=== PATIENT | male | born 1960 | race Caucasian/White ===

== ENCOUNTER → 2016-04-05 | Outpatient (REF) | payer OTHER ==
[~2016-04-05] MED LIST: /ONDA4TA OR; /TAMS4CA OR; ALLO300T OR; LIPI20TA OR; METF500T4 OR; VICO5TAB OR
== END | disposition home or self-care (01) ==
LOC: M SFHCLERA 16:21
PROVIDERS: ATTEND Family Medicine
DX: D04.62 Carcinoma in situ of skin of left upper limb, including shoulder (principal)

== ENCOUNTER → 2016-04-24 | Outpatient (CLI) | payer OTHER ==
[~2016-04-24] VITALS: Ht 182.9 cm; Wt 117.9 kg
[~2016-04-24] MED LIST changes: +ALLO10TA PO; +ASPI1TAB24 PO; +CLAR10CA3 PO; +GLYB5TA PO; +LIDOCAINE 2% INJ 100 MG/5 ML SDV (FOR ANES.) As Ordered ONE; +LISI-542 PO; +METF1000 PO; +NS 1,000 ML IV SCH; +PROPOFOL 200 MG/20 ML VIAL As Ordered ONE; +RANI1TAB6 PO; +TRAZ50TA4 PO
--- NOTE | 2016-04-24 13:15 | ROOR ---
Patient Name: Massimo Ibanez Procedure Date: 04/24/2016 12:54 PM Date of : 1960 Age: 56 Room: [facility] Gender: Male Note Status: Finalized Procedure: Upper GI endoscopy Indications: Suspected gastroparesis, Nausea with vomiting Providers: Meir CURTIS MD Referring MD: SENA BONILLA MD Requesting Provider: Medicines: Monitored Anesthesia Care Complications: No immediate complications. Procedure: Pre-Anesthesia Assessment: - The heart rate, respiratory rate, oxygen saturations, blood pressure, adequacy of pulmonary ventilation, and response to care were monitored throughout the procedure. The Endoscope was introduced through the mouth, and advanced to the second part of duodenum. The upper GI endoscopy was accomplished without difficulty. The patient tolerated the procedure well. Findings: The examined esophagus was normal. The entire examined stomach was normal. A single diminutive sessile polyp was found in the second portion of the duodenum. This was biopsied with a cold forceps for histology. Impression: - Normal esophagus. - Normal stomach. - Normal duodenum except a single tiny duodenal polyp. Biopsied. Recommendation: - Continue present medications. - Telephone endoscopist for pathology results in 2 weeks. Meir Curtis MD Meir CURTIS MD 04/24/2016 1:14:42 PM This report has been signed electronically. Number of Addenda: 0 Note Initiated On: 04/24/2016 12:54 PM Estimated Blood Loss: Estimated blood loss: none.
--- NOTE | 2016-04-24 13:32 | ROOR ---
Patient Name: Massimo Ibanez Procedure Date: 04/24/2016 12:55 PM Date of : 1960 Age: 56 Room: [facility] Gender: Male Note Status: Finalized Procedure: Colonoscopy Indications: Clinically significant diarrhea of unexplained origin, Change in bowel habits Providers: Meir CURTIS MD Referring MD: SENA BONILLA MD Requesting Provider: Medicines: Monitored Anesthesia Care Complications: No immediate complications. Procedure: Pre-Anesthesia Assessment: - The heart rate, respiratory rate, oxygen saturations, blood pressure, adequacy of pulmonary ventilation, and response to care were monitored throughout the procedure. The Colonoscope was introduced through the anus and advanced to the cecum, identified by appendiceal orifice and ileocecal valve. The colonoscopy was performed without difficulty. The patient tolerated the procedure well. The quality of the bowel preparation was good. Findings: The perianal and digital rectal examinations were normal. A diminutive polyp was found in the rectum. The polyp was sessile. The polyp was removed with a jumbo cold forceps. Resection and retrieval were complete. Internal hemorrhoids were found during retroflexion. The hemorrhoids were medium-sized. The exam was otherwise normal throughout the examined colon. Biopsies for histology were taken with a cold forceps for evaluation of microscopic colitis. (Exam: Complete, Prep: Good or Excellent.) Impression: - One diminutive polyp in the rectum, removed with a jumbo cold forceps. Resected and retrieved. - Internal hemorrhoids. - The colon examination was otherwise normal. - Biopsies were taken with a cold forceps for evaluation of microscopic colitis. Recommendation: - Telephone endoscopist for pathology results in 2 weeks. - If the pathology report reveals adenomatous tissue, then repeat the colonoscopy for surveillance in 5 years. Meir Curtis MD Meir CURTIS MD 04/24/2016 1:32:20 PM This report has been signed electronically. Number of Addenda: 0 Note Initiated On: 04/24/2016 12:55 PM Estimated Blood Loss: Estimated blood loss: none.
[2016-04-24 14:05] VITALS: BP 139/91
== END ==
LOC: M OPP 10:44
PROVIDERS: ATTEND Internal Medicine Gastroenterology
DX: R19.7 Diarrhea, unspecified (principal); R19.4 Change in bowel habit; K62.1 Rectal polyp; K64.8 Other hemorrhoids; R11.2 Nausea with vomiting, unspecified; K31.7 Polyp of stomach and duodenum; E11.9 Type 2 diabetes mellitus without complications; N42.9 Disorder of prostate, unspecified; Z85.828 Personal history of other malignant neoplasm of skin; Z79.82 Long term (current) use of aspirin; Z79.84 Long term (current) use of oral hypoglycemic drugs; Z79.899 Other long term (current) drug therapy; Z88.8 Allergy status to other drugs, medicaments and biological substances

== ENCOUNTER 2016-05-05 20:15 | Emergency (ER) | payer OTHER ==
[~2016-05-05] VITALS: Ht 185.4 cm; Wt 115.7 kg
[~2016-05-05 20:15] MED LIST changes: -LIDOCAINE 2% INJ 100 MG/5 ML SDV (FOR ANES.) As Ordered ONE; -NS 1,000 ML IV SCH; -PROPOFOL 200 MG/20 ML VIAL As Ordered ONE
[2016-05-05] MEDS ORDERED: TYLE325T5 PO (20:27)
[2016-05-05] MEDS ORDERED: METOCLOPRAMIDE INJ 10MG/2ML VIAL (J2765) IV ONE (21:15)
[2016-05-05] MEDS ORDERED: MORPHINE 4 MG/ML 1ML SYRINGE IV ONE (21:15)
[2016-05-05 21:26] LABS: BASO % 0.4 % (0.0-1.0); EOS # 0.1 K/mm3 (0.0-0.50); EOS % 0.9 % (0.0-3.0); LARGE UNSTAINED CELL # 0.1 K/mm3 (0.0-0.4); MEAN CORPUSCULAR HEMOGLOBIN 31.3 pg (27.0-33.0); MEAN CORPUSCULAR HGB CONC 34.5 g/dl (32.0-36.5); MEAN CORPUSCULAR VOLUME 90.8 fl (80.0-96.0); MONO # 0.5 K/mm3 (0.0-0.8); MONO % 6.1 % (0.0-5.0); NEUTROPHILS # 6.3 K/mm3 (1.8-7.7); NEUTROPHILS % 79.5 % (36.0-66.0); PLATELET COUNT, AUTOMATED 187 k/mm3 (150-450); RED CELL DISTRIBUTION WIDTH 14.1 % (11.5-14.5); WHITE BLOOD COUNT 7.9 K/mm3 (4.0-10.0)
[2016-05-05 21:53] LABS: ALBUMIN 3.8 GM/DL (3.2-5.2); ALBUMIN/GLOBULIN RATIO 1.19 (1.00-1.93); BILIRUBIN,DIRECT 0.1 MG/DL (0.0-0.2); BILIRUBIN,TOTAL 0.5 MG/DL (0.2-1.0); CALCIUM LEVEL 8.3 MG/DL (8.5-10.1); CREATININE FOR GFR 1.4 MG/DL (0.70-1.30); POTASSIUM SERUM 3.7 MEQ/L (3.5-5.1)
--- NOTE | 2016-05-05 23:00 | REPUSA ---
CLINICAL HISTORY: Right sided pain, stone Vs appy. TECHNIQUE: Multiple axial CT images were obtained through the abdomen and pelvis without administrat ion of oral or IV contrast material. COMMENTS: The liver enlarged, there is hypoattenuation compatible with fatty infiltration. There is no intra o r extrahepatic biliary ductal dilatation. Spleen is enlarged measuring 17 cm. The gallbladder is wi thin normal limits. The pancreas is of normal contour and attenuation characteristics. There is no evidence of adrenal mass. The kidneys are normal in size, shape and configuration. There is evidence of mild hydroureteronephr osis to the point of UVJ where there is a 3 mm calculus noted. There is additional punctate non obst ructing calculus noted in midpole of the right kidney. There are no calculi noted in the left kidney . There is no evidence for appendicitis. There is no bowel wall thickening. No evidence for small or l arge bowel obstruction. There is no evidence of abdominal ascites or lymphadenopathy. There is no evidence of intrinsic or extrinsic bladder mass. There is no pelvic ascites or lymphaden opathy. Prostate gland is mildly enlarged. Images of the lung bases show no evidence of pleural or parenchymal mass. There are no pleural effus ions. The bony structures are free of lytic or blastic lesions. Multilevel degenerative changes are seen i nvolving the thoracolumbar spine. Scattered calcifications are seen involving the aorta and major branches compatible with atherosclero sis. IMPRESSION: 1. 3 mm right UVJ calculus producing mild hydroureteronephrosis. 2. Fatty liver. 3. Splenomegaly. Thank you for your kind referral of this patient. We appreciate the opportunity to participate in th is patient's care.
[2016-05-05] MEDS ORDERED: PERC5TAB6 PO (23:26)
[2016-05-05] MEDS ORDERED: CIPR500T89 PO (23:26)
[2016-05-05] MEDS ORDERED: REGL10TA6 PO (23:26)
[2016-05-05] MEDS ORDERED: MOTR200T44 PO (23:26)
[2016-05-05] MEDS ORDERED: FLOM5CAP PO (23:26)
[2016-05-05] MEDS ORDERED: TAMSULOSIN 0.4 MG CAP PO ONE (23:30)
[2016-05-05] MEDS ORDERED: OXYCODONE/APAP 5MG/325MG(BULK) 1 TAB TAB PO ONE (23:30)
[2016-05-05 23:49] VITALS: BP 128/76
--- NOTE | 2016-05-07 21:24 | ED PDOC ---
Post-Departure Follow-Up ct abd/p faxed to dr carreno for fu Panchito Triana MD May 07, 2016 21:24
== END 2016-05-06 00:03 | disposition home or self-care (01) ==
LOC: M ED 20:56
DX: N20.0 Calculus of kidney (principal)
CPT/HCPCS: 74176; 80048; 80076; 81001; 82150; 83690; 85025; 96374; 96375; 99283; J2765

== ENCOUNTER → 2016-06-08 | Outpatient (REF) | payer OTHER ==
[~2016-06-08] MED LIST changes: +CIPR500T89 PO; +FLOM5CAP PO; +MOTR200T44 PO; +PERC5TAB6 PO; +REGL10TA6 PO; +TYLE325T5 PO
[2016-06-08 11:35] LABS: BASO % 0.5 % (0.0-1.0); EOS # 0.1 K/mm3 (0.0-0.50); EOS % 1.7 % (0.0-3.0); LARGE UNSTAINED CELL # 0.1 K/mm3 (0.0-0.4); LARGE UNSTAINED CELL % 1.1 % (0.0-4.0); LYMPH # 1.3 K/mm3 (1.5-4.5); LYMPH % 18.2 % (24.0-44.0); MEAN CORPUSCULAR HEMOGLOBIN 30.4 pg (27.0-33.0); MEAN CORPUSCULAR HGB CONC 33.8 g/dl (32.0-36.5); MONO # 0.5 K/mm3 (0.0-0.8); MONO % 7.1 % (0.0-5.0); NEUTROPHILS # 4.8 K/mm3 (1.8-7.7); NEUTROPHILS % 71.5 % (36.0-66.0); PLATELET COUNT, AUTOMATED 171 k/mm3 (150-450); RED CELL DISTRIBUTION WIDTH 13.7 % (11.5-14.5); WHITE BLOOD COUNT 6.8 K/mm3 (4.0-10.0)
[2016-06-08 11:38] LABS: ALBUMIN 3.7 GM/DL (3.2-5.2); ALBUMIN/GLOBULIN RATIO 1.32 (1.00-1.93); ALKALINE PHOSPHATASE 81 U/L (45-117); ALT/SGPT 50 U/L (12-78); ANION GAP 7 MEQ/L (8-16); AST/SGOT 27 U/L (15-37); BILIRUBIN,TOTAL 0.4 MG/DL (0.2-1.0); BLOOD UREA NITROGEN 18 MG/DL (7-18); CALCIUM LEVEL 8.7 MG/DL (8.5-10.1); CARBON DIOXIDE LEVEL 29 MEQ/L (21-32); CHLORIDE LEVEL 107 MEQ/L (98-107); CHOLESTEROL LEVEL 207 MG/DL (<200); CREATININE FOR GFR 1.29 MG/DL (0.70-1.30); GLOMERULAR FILTRATION RATE > 60.0 (>56); GLUCOSE, FASTING 144 MG/DL (70-105); POTASSIUM SERUM 4.5 MEQ/L (3.5-5.1); SODIUM LEVEL 143 MEQ/L (136-145); TOTAL PROTEIN 6.5 GM/DL (6.4-8.2); TRIGLYCERIDES LEVEL 283 MG/DL (<150)
== END ==
LOC: M SFHCLERA 08:02
PROVIDERS: ATTEND Family Medicine
DX: E11.9 Type 2 diabetes mellitus without complications (principal); N40.0 Benign prostatic hyperplasia without lower urinary tract symptoms
CPT/HCPCS: 80053; 80061; 83036; 85025; G0103

== ENCOUNTER → 2016-07-27 | Outpatient (CLI) | payer OTHER ==
--- NOTE | 2016-08-01 18:13 | SLEEPCENT ---
DATE OF PROCEDURE: 07/27/2016 REFERRING PHYSICIAN: Aileen Romo Nocturnal polysomnography was performed for the titration of pressure therapy in this patient with obstructive sleep apnea syndrome, apnea-hypopnea index 17.7. For testing, the patient was fit with a [employer] Simplus full face mask of medium size. 5 cm of water pressure were applied to the circuit and the lights were extinguished. 8 hours of data were reviewed. There were 432 minutes of sleep identified. Sleep latency was short at 8.5 minutes. Rapid eye movement (REM) sleep was mildly delayed at 136 minutes. Sleep architecture was good with three REM periods appreciated. Overall sleep efficiency was 91%. EKG showed a sinus rhythm with an average heart rate of 72 beats per minute. EEG showed normal waveforms for awake and sleep. Best pressure for palliation of respiratory events was found to be 10 cm of water with which the patient slept through REM without respiratory event or oxygen desaturation. There was little limb activity and remaining measures of sleep physiology were normal. IMPRESSION: Obstructive sleep apnea syndrome (G47.33). RECOMMENDATION: Nightly use of pressure therapy 10 cm of water.
== END ==
LOC: M SLEEP 20:05
PROVIDERS: ATTEND Nurse Practitioner Adult Health
DX: G47.33 Obstructive sleep apnea (adult) (pediatric) (principal)

== ENCOUNTER → 2016-10-17 | Outpatient (REF) | payer OTHER ==
[~2016-10-17] MED LIST changes: +ASPI-161 PO; -ASPI1TAB24 PO; +CIPR-249 PO; -CIPR500T89 PO; -METF1000 PO; +METF10004 PO; +PERC5TAB12 PO; -PERC5TAB6 PO; +TRAZ50TA11 PO; -TRAZ50TA4 PO
== END ==
LOC: M SFHCLERA 08:05
PROVIDERS: ATTEND Family Medicine
DX: Z53.8 Procedure and treatment not carried out for other reasons (principal); E11.9 Type 2 diabetes mellitus without complications; E78.5 Hyperlipidemia, unspecified; E66.9 Obesity, unspecified; M10.9 Gout, unspecified

== ENCOUNTER → 2017-06-05 | Outpatient (CLI) | payer OTHER | LOC: M LRY 18:40 | DX: M19.011 Primary osteoarthritis, right shoulder (principal) | CPT/HCPCS: 73030 ==

== ENCOUNTER → 2017-06-08 | Outpatient (REF) | payer OTHER ==
[2017-06-08 18:39] LABS: BASO % 0.5 % (0.0-1.0); EOS # 0.1 10^3/uL (0.0-0.50); EOS % 2.2 % (0.0-3.0); HEMATOCRIT 38.2 % (42.0-52.0); HEMOGLOBIN 13.1 g/dl (13.5-17.5); IMMATURE GRANULOCYTE % 1.2 % (0-3.0); LYMPH # 1.1 10^3/uL (1.5-4.5); LYMPH % 16.8 % (24.0-44.0); MEAN CORPUSCULAR HEMOGLOBIN 30.3 pg (27.0-33.0); MEAN CORPUSCULAR HGB CONC 34.3 g/dl (32.0-36.5); MEAN CORPUSCULAR VOLUME 88.2 fl (80.0-96.0); MONO # 0.5 10^3/uL (0.0-0.8); MONO % 7.1 % (0.0-5.0); NEUTROPHILS # 4.7 10^3/uL (1.8-7.7); NEUTROPHILS % 72.2 % (36.0-66.0); PLATELET COUNT, AUTOMATED 166 10^3/uL (150-450); RED BLOOD COUNT 4.33 10^6/uL (4.30-6.10); RED CELL DISTRIBUTION WIDTH 13.5 % (11.5-14.5); WHITE BLOOD COUNT 6.5 10^3/uL (4.0-10.0)
[2017-06-08 18:59] LABS: ESTIMATED AVERAGE GLUCOSE 197 MG/DL (60-110); HEMOGLOBIN A1c 8.5 %
[2017-06-08 19:02] LABS: ALBUMIN 3.7 GM/DL (3.2-5.2); ALBUMIN/GLOBULIN RATIO 1.32 (1.00-1.93); ALKALINE PHOSPHATASE 107 U/L (45-117); ALT/SGPT 41 U/L (12-78); ANION GAP 9 MEQ/L (8-16); AST/SGOT 28 U/L (7-37); BILIRUBIN,TOTAL 0.6 MG/DL (0.2-1.0); BLOOD UREA NITROGEN 11 MG/DL (7-18); CARBON DIOXIDE LEVEL 27 MEQ/L (21-32); CHLORIDE LEVEL 108 MEQ/L (98-107); CHOLESTEROL LEVEL 151 MG/DL (<200); CHOLESTEROL RISK RATIO 4.081 (<5); CREATININE FOR GFR 1.14 MG/DL (0.70-1.30); GLOMERULAR FILTRATION RATE > 60.0 (>56); GLUCOSE, FASTING 197 MG/DL (70-100); HDL CHOLESTEROL 37 MG/DL (>40); NON-HDL-C 114 MG/DL; PSA SCREENING 0.91 NG/ML (< 4.0); SODIUM LEVEL 144 MEQ/L (136-145); THYROID STIMULATING HORMONE 0.803 uIU/ML (0.358-3.740); TOTAL PROTEIN 6.5 GM/DL (6.4-8.2); TRIGLYCERIDES LEVEL 185 MG/DL (<150); URIC ACID 5.3 MG/DL (3.5-7.2)
[2017-06-08 19:09] LABS: MALB URINE SIEMENS 41.7 MG/L; MAU/CREAT RATIO 24.1 MCG/MG (0.0-30.0)
== END ==
LOC: M SFHCLERA 10:17
DX: E11.9 Type 2 diabetes mellitus without complications (principal); Z12.5 Encounter for screening for malignant neoplasm of prostate; N20.9 Urinary calculus, unspecified

== ENCOUNTER → 2017-08-01 | Outpatient (REF) | payer OTHER ==
[2017-08-01 16:51] LABS: ANION GAP 8 MEQ/L (8-16); BASO % 0.5 % (0.0-1.0); BLOOD UREA NITROGEN 14 MG/DL (7-18); CALCIUM LEVEL 9.2 MG/DL (8.5-10.1); CARBON DIOXIDE LEVEL 28 MEQ/L (21-32); CHLORIDE LEVEL 104 MEQ/L (98-107); CREATININE FOR GFR 1.32 MG/DL (0.70-1.30); EOS # 0.1 10^3/uL (0.0-0.50); EOS % 1.7 % (0.0-3.0); GLOMERULAR FILTRATION RATE 59.7 (>56); GLUCOSE, FASTING 247 MG/DL (70-100); HEMATOCRIT 41.5 % (42.0-52.0); HEMOGLOBIN 13.8 g/dl (13.5-17.5); IMMATURE GRANULOCYTE % 1.1 % (0-3.0); LYMPH # 1.5 10^3/uL (1.5-4.5); LYMPH % 18.8 % (24.0-44.0); MEAN CORPUSCULAR HGB CONC 33.3 g/dl (32.0-36.5); MEAN CORPUSCULAR VOLUME 90.2 fl (80.0-96.0); MONO # 0.7 10^3/uL (0.0-0.8); MONO % 8.6 % (0.0-5.0); NEUTROPHILS # 5.7 10^3/uL (1.8-7.7); NEUTROPHILS % 69.3 % (36.0-66.0); PLATELET COUNT, AUTOMATED 187 10^3/uL (150-450); POTASSIUM SERUM 4.4 MEQ/L (3.5-5.1); RED CELL DISTRIBUTION WIDTH 13.6 % (11.5-14.5); SODIUM LEVEL 140 MEQ/L (136-145); WHITE BLOOD COUNT 8.2 10^3/uL (4.0-10.0)
[2017-08-01 16:57] LABS: ESTIMATED AVERAGE GLUCOSE 189 MG/DL (60-110); HEMOGLOBIN A1c 8.2 %
== END ==
LOC: M SFHCLERA 10:49
DX: Z01.818 Encounter for other preprocedural examination (principal); E11.9 Type 2 diabetes mellitus without complications

== ENCOUNTER → 2017-09-04 | Outpatient (CLI) | payer OTHER ==
[2017-09-04 11:32] LABS: ANION GAP 10 MEQ/L (8-16); BLOOD UREA NITROGEN 17 MG/DL (7-18); CALCIUM LEVEL 9.1 MG/DL (8.5-10.1); CARBON DIOXIDE LEVEL 27 MEQ/L (21-32); CHLORIDE LEVEL 105 MEQ/L (98-107); CREATININE FOR GFR 1.31 MG/DL (0.70-1.30); GLOMERULAR FILTRATION RATE > 60.0 (>56); GLUCOSE, FASTING 205 MG/DL (70-100); POTASSIUM SERUM 4.3 MEQ/L (3.5-5.1); SODIUM LEVEL 142 MEQ/L (136-145)
== END ==
LOC: M LAB 10:46
DX: E10.9 Type 1 diabetes mellitus without complications (principal)

== ENCOUNTER 2018-03-07 17:16 | Emergency (ER) | payer OTHER ==
[~2018-03-07] VITALS: Ht 182.9 cm; Wt 115.9 kg
[2018-03-07 17:16] VITALS: BP 169/83
[~2018-03-07 17:16] MED LIST changes: +FLOM0.4C39 PO; -FLOM5CAP PO; +TRAZ-160 PO; -TRAZ50TA11 PO
[2018-03-07] MEDS ORDERED: NS 1,000 ML IV ONE (18:00)
[2018-03-07] MEDS ORDERED: ONDANSETRON 4MG/2ML VIAL (J2405) IV ONE (18:00)
[2018-03-07] MEDS: MORPHINE 4 MG/ML 1ML VIAL/SYRINGE (J2270) IV PRN ×2 (18:17→20:11)
[2018-03-07 18:23] LABS: BASO # 0.1 10^3/uL (0.0-0.2); BASO % 0.4 % (0.0-1.0); EOS # 0.1 10^3/uL (0.0-0.50); EOS % 0.7 % (0.0-3.0); HEMATOCRIT 43.6 % (42.0-52.0); HEMOGLOBIN 14.9 g/dl (13.5-17.5); LYMPH # 1.3 10^3/uL (1.5-4.5); LYMPH % 8.2 % (24.0-44.0); MEAN CORPUSCULAR HEMOGLOBIN 30.1 pg (27.0-33.0); MEAN CORPUSCULAR HGB CONC 34.2 g/dl (32.0-36.5); MEAN CORPUSCULAR VOLUME 88.1 fl (80.0-96.0); MONO # 1.4 10^3/uL (0.0-0.8); MONO % 8.8 % (0.0-5.0); NEUTROPHILS % 81.2 % (36.0-66.0); PLATELET COUNT, AUTOMATED 220 10^3/uL (150-450); RED BLOOD COUNT 4.95 10^6/uL (4.30-6.10)
--- NOTE | 2018-03-07 18:54 | REPVR ---
EXAM: US Abdomen Limited, Right Upper Quadrant EXAM DATE/TIME: 03/07/2018 6:12 PM CLINICAL HISTORY: 58 years old, male; Pain; Abdominal pain; Acute; Additional info: Ruq pain TECHNIQUE: Real-time ultrasound of the abdomen with image documentation. Examination was focused on the right upper quadrant. COMPARISON: No relevant prior studies available. FINDINGS: Liver: The liver is generally increased in echo texture. Focal area of relative decreased echotexture noted within the liver parenchyma adjacent to the gallbladder. This represents normal liver parenchyma on a background of a fatty infiltration. There is attenuation of sound as it passes through the liver. Gallbladder: A small amount of sludge is seen in the gallbladder. No gallstones. There is no gallbladder wall thickening. Common bile duct: The common bile duct measures 6 mm. Pancreas: Visualized pancreas is unremarkable. Right kidney: The right kidney measures 10.2 x 4.7 x 5.3 cm. IMPRESSION: 1. Gallbladder sludge 2. Hepatic steatosis Electronically signed by: Jovita Olmedo On 03/07/2018 18:54:25 PM
[2018-03-07 19:01] LABS: ALBUMIN 3.6 GM/DL (3.2-5.2); ALT/SGPT 26 U/L (12-78); BILIRUBIN,DIRECT 0.2 MG/DL (0.0-0.2); BILIRUBIN,TOTAL 0.7 MG/DL (0.2-1.0); BLOOD UREA NITROGEN 17 MG/DL (7-18); CALCIUM LEVEL 8.8 MG/DL (8.5-10.1); CARBON DIOXIDE LEVEL 26 MEQ/L (21-32); CHLORIDE LEVEL 102 MEQ/L (98-107); CREATININE FOR GFR 1.28 MG/DL (0.70-1.30); GLOMERULAR FILTRATION RATE > 60.0 (>56); GLUCOSE, FASTING 180 MG/DL (70-100); LIPASE 151 U/L (73-393); POTASSIUM SERUM 3.7 MEQ/L (3.5-5.1); SODIUM LEVEL 139 MEQ/L (136-145); TOTAL PROTEIN 7.5 GM/DL (6.4-8.2)
[2018-03-07] MEDS ORDERED: ISOVUE-370 76% 100ML VIAL (Q9967) As Ordered ONE (19:16)
--- NOTE | 2018-03-07 19:49 | REPVR ---
EXAM: CT Abdomen and Pelvis With Contrast EXAM DATE/TIME: 03/07/2018 7:20 PM CLINICAL HISTORY: 58 years old, male; Pain; Abdominal pain; Localized; Right upper quadrant (ruq); Additional info: Ruq pain TECHNIQUE: Axial computed tomography images of the abdomen and pelvis with intravenous contrast. All CT scans at this facility use at least one of these dose optimization techniques: automated exposure control; mA and/or kV adjustment per patient size (includes targeted exams where dose is matched to clinical indication); or iterative reconstruction. Coronal and sagittal reformatted images were created and reviewed. CONTRAST: 100 ml of isovue 370 administered intravenously. COMPARISON: CT ABD PELVIS W/O CONTRAST 05/05/2016 10:02 PM FINDINGS: Lower thorax: No acute findings. ABDOMEN: Liver: The liver measures 26 cm in craniocaudal span. The liver is low in density. Gallbladder and bile ducts: Mild inflammatory changes noted within the fat surrounding the inferior aspect of the gallbladder. Pancreas: Normal. No ductal dilation. Spleen: Normal. No splenomegaly. Adrenals: Normal. No mass. Kidneys and ureters: Normal. No hydronephrosis. Stomach and bowel: Normal. No obstruction. No mucosal thickening. Appendix: No evidence of appendicitis. PELVIS: Bladder: Unremarkable as visualized. Reproductive: The prostate measures 4.1 x 5.3 by approximately 4 cm. ABDOMEN and PELVIS: Intraperitoneal space: Normal. No free air. No significant fluid collection. Bones/joints: No acute fracture. No dislocation. Soft tissues: Unremarkable. Vasculature: Normal. No abdominal aortic aneurysm. Lymph nodes: Normal. No enlarged lymph nodes. IMPRESSION: 1. Mild inflammatory changes surrounding the gallbladder suggests the possibility of acute cholecystitis. An ultrasound done before the CT examination demonstrated the presence of sludge in the gallbladder. 2. Hepatic steatosis. Electronically signed by: Jovita Olmedo On 03/07/2018 19:48:52 PM
[2018-03-07] MEDS ORDERED: AUGMENTIN 875 MG TAB PO ONE (20:30)
[2018-03-07] MEDS ORDERED: NORCO 5/325MG TABLET (BULK FOR ED) PO ONE (20:30)
[2018-03-07] MEDS ORDERED: NORCOTAB PO (20:32)
[2018-03-07] MEDS ORDERED: AUGM875T28 PO (20:32)
[2018-03-08] MEDS ORDERED: METF500T13 PO (22:37)
[2018-03-08] MEDS ORDERED: TRAZO50TA PO (22:37)
[2018-03-08] MEDS ORDERED: IBUPOTC PO (22:37)
[2018-03-08] MEDS ORDERED: AUGM875T28 PO (22:37)
[2018-03-08] MEDS ORDERED: METF850T4 PO (22:37)
[2018-03-08] MEDS ORDERED: SITA50TAB PO (22:37)
[2018-03-08] MEDS ORDERED: NORC1TAB4 PO (22:37)
== END 2018-03-07 20:52 | disposition home or self-care (01) ==
LOC: M ED 17:16
DX: K81.0 Acute cholecystitis (principal); E11.9 Type 2 diabetes mellitus without complications; K21.9 Gastro-esophageal reflux disease without esophagitis; Z79.899 Other long term (current) drug therapy; Z79.84 Long term (current) use of oral hypoglycemic drugs; Z79.82 Long term (current) use of aspirin; Z88.8 Allergy status to other drugs, medicaments and biological substances
CPT/HCPCS: 74177; 76705; 80048; 80076; 81001; 83690; 85025; 96361; 96374; 96375; 96376; 99284; J2270; J2405; Q9967

== ENCOUNTER 2018-03-08 21:31 | Inpatient (IN) | payer OTHER ==
[~2018-03-08] VITALS: Ht 182.9 cm; Wt 119.5 kg
[~2018-03-08 21:31] MED LIST changes: +AUGM875T28 PO; +NORCOTAB PO
[2018-03-08] MEDS ORDERED: METOCLOPRAMIDE INJ 10MG/2ML VIAL (J2765) IV ONE (22:00)
[2018-03-08] MEDS ORDERED: MORPHINE 4 MG/ML 1ML VIAL/SYRINGE (J2270) IV ONE (22:00)
[2018-03-08] MEDS ORDERED: NS 1,000 ML IV ONE (22:00)
[2018-03-08 22:16] LABS: BASO # 0.1 10^3/uL (0.0-0.2); BASO % 0.2 % (0.0-1.0); HEMATOCRIT 42.8 % (42.0-52.0); HEMOGLOBIN 14.6 g/dl (13.5-17.5); LYMPH # 0.8 10^3/uL (1.5-4.5); LYMPH % 3.8 % (24.0-44.0); MEAN CORPUSCULAR HEMOGLOBIN 30.5 pg (27.0-33.0); MEAN CORPUSCULAR HGB CONC 34.1 g/dl (32.0-36.5); MEAN CORPUSCULAR VOLUME 89.5 fl (80.0-96.0); MONO % 11.2 % (0.0-5.0); NEUTROPHILS # 17.5 10^3/uL (1.8-7.7); NEUTROPHILS % 83.9 % (36.0-66.0); PLATELET COUNT, AUTOMATED 191 10^3/uL (150-450); RED BLOOD COUNT 4.78 10^6/uL (4.30-6.10); WHITE BLOOD COUNT 20.9 10^3/uL (4.0-10.0)
[2018-03-08 22:37] LABS: MONO # 2.3 10^3/uL (0.0-0.8)
[2018-03-08] MEDS ORDERED: METF850T4 PO (22:37)
[2018-03-08] MEDS ORDERED: NORC1TAB4 PO (22:37)
[2018-03-08] MEDS ORDERED: SITA50TAB PO (22:37)
[2018-03-08] MEDS ORDERED: IBUPOTC PO (22:37)
[2018-03-08] MEDS ORDERED: AUGM875T28 PO (22:37)
[2018-03-08] MEDS ORDERED: TRAZO50TA PO (22:37)
[2018-03-08] MEDS ORDERED: METF500T13 PO (22:37)
[2018-03-08 22:41] LABS: ALBUMIN 3.1 GM/DL (3.2-5.2); BILIRUBIN,DIRECT 0.7 MG/DL (0.0-0.2); BILIRUBIN,TOTAL 1.8 MG/DL (0.2-1.0); CREATININE FOR GFR 1.49 MG/DL (0.70-1.30); GLOMERULAR FILTRATION RATE 51.8 (>56); POTASSIUM SERUM 4.1 MEQ/L (3.5-5.1); TOTAL PROTEIN 6.4 GM/DL (6.4-8.2)
[2018-03-09] MEDS ORDERED: ONDANSETRON 4MG/2ML VIAL (J2405) IV PRN (00:15)
[2018-03-09] MEDS ORDERED: MORPHINE 2 MG/ML 1ML SYRINGE (J2270) IV PRN (00:15)
[2018-03-09 00:23] VITALS: BP 143/87
[2018-03-09] MEDS: PIPERACILLIN/TAZOBACTAM SOD 3.375 GM in D5W MINI-BAG PLUS 50 ML IV SCH ×4 (01:08→18:02)
[2018-03-09] MEDS: MORPHINE 4 MG/ML 1ML VIAL/SYRINGE (J2270) IV PRN ×3 (01:08→08:13)
[2018-03-09] MEDS: LR 1,000 ML IV SCH ×4 (01:20→22:29)
[2018-03-09 06:00] VITALS: BP 133/62
[2018-03-09] MEDS ORDERED: KETOROLAC 30 MG/ML VIAL (J1885) IV PRN (09:00)
[2018-03-09] MEDS ORDERED: GLUCOSE 4 GM CHEW TABLET PO PRN (09:00)
[2018-03-09] MEDS ORDERED: traZODone 50 MG TAB PO PRN (09:00)
[2018-03-09] MEDS ORDERED: ACETAMINOPHEN TAB 650MG DOSE (2X325MG) PO PRN (09:00)
[2018-03-09] MEDS ORDERED: DEXTROSE 50% 50 ML SYRINGE IV PRN (09:00)
[2018-03-09] MEDS ORDERED: GLUCAGON FOR INJ 1 MG VIAL (J1610) SC PRN (09:00)
[2018-03-09 09:56] LABS: ALBUMIN 2.7 GM/DL (3.2-5.2); BILIRUBIN,DIRECT 0.5 MG/DL (0.0-0.2); BILIRUBIN,TOTAL 1.1 MG/DL (0.2-1.0); CALCIUM LEVEL 7.7 MG/DL (8.5-10.1); CREATININE FOR GFR 1.49 MG/DL (0.70-1.30); GLOMERULAR FILTRATION RATE 51.8 (>56); HEMATOCRIT 37.1 % (42.0-52.0); MEAN CORPUSCULAR HEMOGLOBIN 29.8 pg (27.0-33.0); MEAN CORPUSCULAR HGB CONC 33.4 g/dl (32.0-36.5); MEAN CORPUSCULAR VOLUME 89.2 fl (80.0-96.0); PLATELET COUNT, AUTOMATED 156 10^3/uL (150-450); POTASSIUM SERUM 3.5 MEQ/L (3.5-5.1); RED BLOOD COUNT 4.16 10^6/uL (4.30-6.10); TOTAL PROTEIN 5.6 GM/DL (6.4-8.2); WHITE BLOOD COUNT 15.7 10^3/uL (4.0-10.0)
[2018-03-09 09:57] LABS: HEMOGLOBIN 12.4 g/dl (13.5-17.5)
[2018-03-09] MEDS: LISINOPRIL 5 MG TAB PO SCH (10:21)
[2018-03-09] MEDS: NORCO, ANEXSIA 5/325MG TABLET (HYDROcodone/ACETAMINOPHEN) PO PRN ×3 (10:21→20:21)
[2018-03-09] MEDS: ALLOPURINOL 100 MG TAB PO SCH (10:21)
[2018-03-09] MEDS: SENOKOT S TAB PO SCH ×2 (10:21→20:20)
[2018-03-09] MEDS: SITagliptin 50 MG TAB (JANUVIA) PO SCH (10:21)
[2018-03-09] MEDS: HumaLOG INSULIN (NovoLOG) PER UNIT SC SCH ×2 (12:00→18:00)
[2018-03-09] MEDS: metFORMIN 850 MG TAB PO SCH (13:18)
[2018-03-09] MEDS: ENOXAPARIN 40 MG/0.4 ML SYRINGE (J1650) SC SCH (13:18)
[2018-03-09 14:00] VITALS: BP 112/61
[2018-03-09] MEDS ORDERED: metFORMIN (GLUCOPHAGE) 500 MG TAB PO SCH (18:00)
[2018-03-09 22:00] VITALS: BP 142/65
[2018-03-10] MEDS: PIPERACILLIN/TAZOBACTAM SOD 3.375 GM in D5W MINI-BAG PLUS 50 ML IV SCH ×2 (00:53→05:23)
[2018-03-10] MEDS: HumaLOG INSULIN (NovoLOG) PER UNIT SC SCH ×2 (01:05→06:34)
[2018-03-10] MEDS: NORCO, ANEXSIA 5/325MG TABLET (HYDROcodone/ACETAMINOPHEN) PO PRN ×2 (05:27→10:48)
[2018-03-10 05:53] LABS: HEMATOCRIT 38.2 % (42.0-52.0); HEMOGLOBIN 12.6 g/dl (13.5-17.5); MEAN CORPUSCULAR HEMOGLOBIN 30.2 pg (27.0-33.0); MEAN CORPUSCULAR VOLUME 91.6 fl (80.0-96.0); PLATELET COUNT, AUTOMATED 166 10^3/uL (150-450); RED BLOOD COUNT 4.17 10^6/uL (4.30-6.10); WHITE BLOOD COUNT 12.7 10^3/uL (4.0-10.0)
[2018-03-10 06:00] VITALS: BP 138/84
[2018-03-10 06:24] LABS: ALBUMIN 2.4 GM/DL (3.2-5.2); ALT/SGPT 19 U/L (12-78); BLOOD UREA NITROGEN 14 MG/DL (7-18); CALCIUM LEVEL 8.1 MG/DL (8.5-10.1); CARBON DIOXIDE LEVEL 24 MEQ/L (21-32); CHLORIDE LEVEL 103 MEQ/L (98-107); CREATININE FOR GFR 1.28 MG/DL (0.70-1.30); GLOMERULAR FILTRATION RATE > 60.0 (>56); GLUCOSE, FASTING 114 MG/DL (70-100); POTASSIUM SERUM 3.6 MEQ/L (3.5-5.1); SODIUM LEVEL 136 MEQ/L (136-145); TOTAL PROTEIN 6.4 GM/DL (6.4-8.2)
[2018-03-10] MEDS: LR 1,000 ML IV SCH (08:15)
[2018-03-10 08:53] VITALS: BP 127/79
[2018-03-10] MEDS: ENOXAPARIN 40 MG/0.4 ML SYRINGE (J1650) SC SCH (08:53)
[2018-03-10] MEDS: metFORMIN 850 MG TAB PO SCH (08:53)
[2018-03-10] MEDS: SITagliptin 50 MG TAB (JANUVIA) PO SCH (08:53)
[2018-03-10] MEDS: LISINOPRIL 5 MG TAB PO SCH (08:53)
[2018-03-10] MEDS: SENOKOT S TAB PO SCH (08:53)
[2018-03-10] MEDS: ALLOPURINOL 100 MG TAB PO SCH (08:53)
--- NOTE | 2018-03-10 12:48 | HPE ---
DATE OF ADMISSION: 03/08/2018 CHIEF COMPLAINT: Abdominal pain. HISTORY OF PRESENT ILLNESS The patient is a 58-year-old male with a history of acute cholecystitis. He was discharged from the emergency room on Saturday night and returned Saturday with increasing pain. His symptoms started on Saturday. He came home from work early, stayed home from work on Saturday, went back to work on , but his pain in the right upper quadrant kept any progressively worse, a little bit of nausea and vomiting with it. No other problems with fevers, diarrhea or constipation. No prior history of cholelithiasis or abdominal pains. In the ER on Saturday he was diagnosed with acute cholecystitis with a slightly elevated white count, liver enzymes were normal so he was discharged home with p.o. antibiotics. However, his pain got progressively worse after going home so he came back in last night. White count was elevated on this admission as well as his bilirubins, so he was admitted overnight. This morning he feels much improved. He has been on the IV antibiotics for about two doses now. Repeated labs this morning, which do show improvement of both his white count and his bilirubins. We will continue to monitor him for another 24 hours to make sure he continues to improve, and if so, will plan on discharge home tomorrow morning. PAST MEDICAL HISTORY: Kidney stones. Diabetes. PAST SURGICAL HISTORY: Right shoulder surgery. Left knee surgery. Lithotripsy for kidney stones. Vasectomy. Umbilical hernia repair. Tonsillectomy. ALLERGIES: 1. DICYCLOMINE. MEDICATIONS: Please see med rec. SOCIAL HISTORY: Denies drug, alcohol, tobacco abuse. FAMILY HISTORY: Noncontributory. REVIEW OF SYSTEMS: Pertinent positives and negatives as stated in the history of present illness. PHYSICAL EXAMINATION GENERAL: Alert and oriented times three. No acute stress. VITALS: Temperature 99, pulse 88, respirations 17, blood pressure 133/62, pulse ox 94% room air. HEENT: Pupils equally round and reactive to light and accommodation. HEART: S1-S2 regular rate and rhythm. LUNGS: Clear to auscultation bilaterally. ABDOMEN: Soft. Tender to palpation right upper quadrant. Localized guarding, no rigidity. No signs of peritonitis. EXTREMITIES: No clubbing, cyanosis or edema. LABORATORY DATA: White count 20.9 down to 15.7, hemoglobin 12.4, platelets 156, sodium 139, creatinine 1.49, total bilirubin 1.8 down to 1.1, direct bilirubin 0.7 down to 0.5, AST, ALT and alkaline phosphatase are within normal range. ASSESSMENT/PLAN: Patient is a 58-year-old male with known history of acute cholecystitis failing outpatient therapy. Recommendation was to keep him in house and monitor him with supportive care and see if he improves. Hyperbilirubinemia could be secondary to acute cholecystitis versus choledocholithiasis. We will continue to trend his enzymes however, at this point they are improving and so choledocholithiasis is unlikely. He was started on clear liquid diet today, keep him on the antibiotics, and monitor him overnight, and as long as he is improving tomorrow will plan on discharge home tomorrow morning.
--- NOTE | 2018-03-11 04:20 | DSES ---
DATE OF ADMISSION: 03/08/2018 DATE OF DISCHARGE: 03/10/2018 ADMISSION DIAGNOSIS: Acute cholecystitis. DISCHARGE DIAGNOSIS: Acute cholecystitis. HOSPITAL COURSE: The patient is a 58-year-old male who presented on the with right upper quadrant abdominal pain that has been going on for a few days. He came into the hospital on Saturday and was discharged home with antibiotics orally however he continued to have increasing pain so he came back in on Saturday. On Saturday the pain was worse. His white count had increased up to 20 and his bilirubins were also elevated. We admitted him to observe for signs of choledocholithiasis versus cholangitis. After having less than 6 hours of IV fluids antibiotics his pain subsided and he was improving. Repeat laboratories about 9 hours later showed improvement in all of his liver enzymes and leukocytosis. Started him on a clear liquid diet yesterday. This morning his pain is continuing to improve. White count is down now to 12.7 from 20.9 on admission. His bilirubins are back to normal 1.8 on admission down to 1.0 now. His pain is still present in the right upper quadrant only but much improved. He is tolerating clear liquid diets without any problems. PLAN: Discharge home today on a liquid diet until his pain is completely subsided. Will also continue with by mouth antibiotics that he was already given from the emergency room (ER) on Saturday. Once his pain is improved he can go back to a low-fat, low-calorie diet and then he will follow up with me in the office within the next week to schedule outpatient surgery. All of his questions were answered. He has pain meds and antibiotics already at home.
== END 2018-03-10 11:30 | disposition home or self-care (01) | DRG 446 ==
LOC: M ED 21:31 → M ED INP 22:50 → M MSPAV 03-09 00:24
PROVIDERS: ADMIT Surgery; ATTEND Surgery
DX: K81.0 Acute cholecystitis (principal); E11.9 Type 2 diabetes mellitus without complications; Z87.442 Personal history of urinary calculi; Z88.8 Allergy status to other drugs, medicaments and biological substances; Z79.84 Long term (current) use of oral hypoglycemic drugs; Z79.82 Long term (current) use of aspirin; Z79.899 Other long term (current) drug therapy

== ENCOUNTER → 2018-03-20 | Outpatient (REF) | payer OTHER ==
[~2018-03-20] MED LIST changes: +IBUPOTC PO; +METF500T13 PO; +METF850T4 PO; +NORC1TAB4 PO; +SITA50TAB PO; +TRAZO50TA PO
[2018-03-20 11:17] LABS: BASO # 0.1 10^3/uL (0.0-0.2); BASO % 0.8 % (0.0-1.0); EOS # 0.1 10^3/uL (0.0-0.50); EOS % 1.4 % (0.0-3.0); HEMATOCRIT 41.2 % (42.0-52.0); HEMOGLOBIN 13.1 g/dl (13.5-17.5); LYMPH # 1.2 10^3/uL (1.5-4.5); LYMPH % 13.2 % (24.0-44.0); MEAN CORPUSCULAR HEMOGLOBIN 29.5 pg (27.0-33.0); MEAN CORPUSCULAR HGB CONC 31.8 g/dl (32.0-36.5); MEAN CORPUSCULAR VOLUME 92.8 fl (80.0-96.0); MONO # 0.7 10^3/uL (0.0-0.8); MONO % 8.2 % (0.0-5.0); NEUTROPHILS # 6.7 10^3/uL (1.8-7.7); PLATELET COUNT, AUTOMATED 302 10^3/uL (150-450); RED BLOOD COUNT 4.44 10^6/uL (4.30-6.10)
[2018-03-20 11:29] LABS: ALBUMIN 3.3 GM/DL (3.2-5.2); ALT/SGPT 31 U/L (12-78); BILIRUBIN,TOTAL 0.4 MG/DL (0.2-1.0); BLOOD UREA NITROGEN 13 MG/DL (7-18); CALCIUM LEVEL 8.3 MG/DL (8.5-10.1); CARBON DIOXIDE LEVEL 28 MEQ/L (21-32); CHLORIDE LEVEL 108 MEQ/L (98-107); CHOLESTEROL LEVEL 145 MG/DL (<200); CHOLESTEROL RISK RATIO 4.264 (<5); CREATININE FOR GFR 1.12 MG/DL (0.70-1.30); GLOMERULAR FILTRATION RATE > 60.0 (>56); GLUCOSE, FASTING 127 MG/DL (70-100); HDL CHOLESTEROL 34 MG/DL (>40); LDL CHOLESTEROL 91 MG/DL (<100); NON-HDL-C 111 MG/DL; POTASSIUM SERUM 4.4 MEQ/L (3.5-5.1); SODIUM LEVEL 142 MEQ/L (136-145); TOTAL PROTEIN 6.3 GM/DL (6.4-8.2); TRIGLYCERIDES LEVEL 101 MG/DL (<150)
[2018-03-20 11:49] LABS: HEMOGLOBIN A1c 7.5 %
[2018-03-20 12:05] LABS: MALB URINE SIEMENS 41.5 MG/L; MAU/CREAT RATIO 18.2 MCG/MG (0.0-30.0)
== END ==
LOC: M SFHCLERA 08:47
PROVIDERS: ATTEND Family Medicine
DX: E11.9 Type 2 diabetes mellitus without complications (principal)

== ENCOUNTER → 2018-04-02 | Outpatient (CLI) | payer OTHER ==
[~2018-04-02] MED LIST changes: +ASPI81TAEC PO; +ATOR40TA75 PO; +DICL1GEL3 TOP; +HYDR-4571 PO
--- NOTE | 2018-04-02 15:39 | ECGEPIP ---
Stationary ECG Study [facility] Test Date: 2018-04-02 Pat Name: SOLEDAD MORALES Department: Room: - Gender: M Boat Mechanic: : 1960 Requested By: Ruy Ross Order Number: [id number] Reading MD: Yolis Hammonds Measurements Intervals [place] Rate: 73 P: 27 ME: 165 QRS: -8 QRSD: 113 T: 28 QT: 375 QTc: 414 Interpretive Statements SINUS RHYTHM MODERATE INTRAVENTRICULAR CONDUCTION DELAY STABLE C/W 09/04/14 Electronically Signed On 04-02-2018 15:39:20 EST by Yolis Hammonds
== END ==
LOC: M EKG 12:08
PROVIDERS: ATTEND Anesthesiology
DX: Z01.818 Encounter for other preprocedural examination (principal); I45.9 Conduction disorder, unspecified

== ENCOUNTER 2018-04-07 09:20 | Day surgery (SDC) | payer OTHER ==
[~2018-04-07] VITALS: Ht 182.9 cm; Wt 110.6 kg
[~2018-04-07 09:20] MED LIST changes: -ASPI81TAEC PO; -DICL1GEL3 TOP; -HYDR-4571 PO; +LIDOCAINE 1% MDV 20ML VIAL SQ PRN; +LIDOCAINE 2% INJ 100 MG/5 ML SDV (FOR ANES.) As Ordered ONE; +LR 1,000 ML IV ONE; +MIDAZOLAM INJ 2 MG/2 ML VIAL (J2250) As Ordered ONE; +ONDANSETRON 4MG/2ML VIAL (J2405) As Ordered ONE; +PROPOFOL 200 MG/20 ML VIAL As Ordered ONE; +ROCURONIUM BROMIDE 50 MG/5 ML VIAL As Ordered ONE; +dexameTHASONE 4 MG/ML 1ML VIAL (J1100) As Ordered ONE; +fentaNYL 100 MCG/2 ML INJECTION (J3010) As Ordered ONE
[2018-04-07] MEDS ORDERED: BUPIVACAINE/EPIN 0.25% 30 ML VIAL As Ordered ONE (09:42)
[2018-04-07] MEDS ORDERED: PHENYLephrine HCL 500 MCG/5 ML (100MCG/ML) SYRINGE (J2370) As Ordered ONE (10:40)
[2018-04-07] MEDS ORDERED: ePHEDrine SULFATE 25 MG/5 ML(5MG/ML) SYRINGE As Ordered ONE (10:40)
[2018-04-07] MEDS ORDERED: SUGAMMADEX SODIUM 500 MG/5 ML VIAL (BRIDION) As Ordered ONE (10:43)
[2018-04-07] MEDS ORDERED: KETOROLAC 60 MG/2 ML VIAL (J1885) As Ordered ONE (10:44)
[2018-04-07] MEDS ORDERED: fentaNYL 100 MCG/2 ML INJECTION (J3010) As Ordered ONE (10:52)
[2018-04-07] MEDS ORDERED: fentaNYL 100 MCG/2 ML INJECTION (J3010) IV PRN (12:00)
[2018-04-07] MEDS ORDERED: HYDROMORPHONE HCL 0.5 MG/ 0.5 ML SYRINGE (J1170 PER 1) IV PRN (12:00)
[2018-04-07] MEDS ORDERED: NORCO, ANEXSIA 5/325MG TABLET (HYDROcodone/ACETAMINOPHEN) PO PRN (12:00)
[2018-04-07] MEDS ORDERED: PERCOCET 5MG/325MG TAB PO PRN (12:00)
[2018-04-07 13:45] VITALS: BP 154/88
--- NOTE | 2018-04-08 17:07 | RO ---
DATE OF PROCEDURE: 04/07/2018 PREOPERATIVE DIAGNOSIS: Acute cholecystitis. POSTOPERATIVE DIAGNOSIS: Acute cholecystitis. PROCEDURE: Laparoscopic cholecystectomy. SURGEON: Dr. Seferino Jensen TUMBLER TENDER: Dr. Humphrey, who assisted with retraction and visualization of the gallbladder. ANESTHESIA: General. ESTIMATED BLOOD LOSS: 5 mL. COMPLICATIONS: None. INDICATIONS FOR PROCEDURE: The patient is a 58-year-old male who presents in the hospital with acute cholecystitis. He was discharged home with antibiotics for a couple of weeks and is now here for elective cholecystectomy. The risks and benefits of the procedure not limited to but including bleeding, infection, hernia formation, damage to surrounding structures, and need for further surgery were discussed in detail with the patient. Informed consent was obtained and procedure was planned. DESCRIPTION OF PROCEDURE: The patient was brought back to operating room two after sufficient sedation. The abdomen was sterilely prepped and draped. Next, a time-out was done to confirm proper patient, proper procedure. Following that, a 5 mm incision made in left upper quadrant, Veress needle was inserted and the abdomen was insufflated to 15 mmHg. Next, the Veress needle was removed. A 5 mm Optiview port was used to gain access to the abdomen and left upper quadrant. The abdomen was examined and site of a previous umbilical hernia repair is well intact. No signs of any mesh. A 5 mm supraumbilical incision was then made and another 5 mm port was placed there. 11 mm port placed subxiphoid, two 5 mm ports in the right upper quadrant. The fundus of the gallbladder was grasped, elevated up towards the right shoulder. Multiple peritoneal and omental adhesions to the gallbladder that were all easily taken down with blunt dissection. Once that was completed, the cystic duct and cystic artery were carefully dissected free using a combination of blunt and sharp dissection. Once they were both clearly identified, they were both doubly clipped and cut. Due to the large size, once it was cut, it was also ligated with a PDS Endoloop. The gallbladder was then removed from the gallbladder fossa using electrocautery. Hemostasis was controlled using electrocautery once the gallbladder was removed. Once that was completed, right upper quadrant was irrigated. The gallbladder was then removed from the abdomen using a 10 mm EndoCatch bag through the subxiphoid port site. Once the gallbladder was removed, the right upper quadrant was examined one last time to confirm hemostasis. The abdomen was then desufflated. Skin incisions were closed with #4-0 Vicryl subcuticular sutures. The abdomen was cleaned and dried. Steri-Strips, 4x4 and tape were applied thus ending procedure.
== END 2018-04-07 14:02 | disposition home or self-care (01) ==
LOC: M SDC 09:20
PROVIDERS: ATTEND Surgery
DX: K81.2 Acute cholecystitis with chronic cholecystitis (principal); E11.9 Type 2 diabetes mellitus without complications; E78.5 Hyperlipidemia, unspecified; G47.30 Sleep apnea, unspecified; Z79.82 Long term (current) use of aspirin; Z79.84 Long term (current) use of oral hypoglycemic drugs; Z79.899 Other long term (current) drug therapy
CPT/HCPCS: 47562; 88304; J1100; J1885; J2250; J2370; J2405; J3010

== ENCOUNTER 2018-04-09 19:45 | Inpatient (IN) | payer OTHER ==
[~2018-04-09] VITALS: Ht 182.9 cm; Wt 112.4 kg
[~2018-04-09 19:45] MED LIST changes: -LIDOCAINE 1% MDV 20ML VIAL SQ PRN; -LIDOCAINE 2% INJ 100 MG/5 ML SDV (FOR ANES.) As Ordered ONE; -LR 1,000 ML IV ONE; -MIDAZOLAM INJ 2 MG/2 ML VIAL (J2250) As Ordered ONE; -ONDANSETRON 4MG/2ML VIAL (J2405) As Ordered ONE; -PROPOFOL 200 MG/20 ML VIAL As Ordered ONE; -ROCURONIUM BROMIDE 50 MG/5 ML VIAL As Ordered ONE; -dexameTHASONE 4 MG/ML 1ML VIAL (J1100) As Ordered ONE; -fentaNYL 100 MCG/2 ML INJECTION (J3010) As Ordered ONE
[2018-04-09] MEDS ORDERED: HYDR-4571 PO (20:16)
[2018-04-09 20:40] LABS: BASO % 0.2 % (0.0-1.0); EOS % 0.1 % (0.0-3.0); HEMATOCRIT 36.9 % (42.0-52.0); HEMOGLOBIN 12.4 g/dl (13.5-17.5); LYMPH # 0.3 10^3/uL (1.5-4.5); LYMPH % 1.9 % (24.0-44.0); MEAN CORPUSCULAR HEMOGLOBIN 29.5 pg (27.0-33.0); MEAN CORPUSCULAR HGB CONC 33.6 g/dl (32.0-36.5); MEAN CORPUSCULAR VOLUME 87.9 fl (80.0-96.0); MONO # 0.8 10^3/uL (0.0-0.8); MONO % 4.7 % (0.0-5.0); NEUTROPHILS # 15.9 10^3/uL (1.8-7.7); NEUTROPHILS % 92.2 % (36.0-66.0); PLATELET COUNT, AUTOMATED 187 10^3/uL (150-450); WHITE BLOOD COUNT 17.2 10^3/uL (4.0-10.0)
[2018-04-09 21:06] LABS: BLOOD UREA NITROGEN 35 MG/DL (7-18); CALCIUM LEVEL 8.2 MG/DL (8.5-10.1); CARBON DIOXIDE LEVEL 27 MEQ/L (21-32); CHLORIDE LEVEL 99 MEQ/L (98-107); CK-MB VALUE MASS < 1.0 NG/ML (<3.6); CPK CREATINE PHOSPHOKINASE 63 U/L (39-308); GLOMERULAR FILTRATION RATE 31.4 (>56); GLUCOSE, FASTING 324 MG/DL (70-100); MB/CK RELATIVE INDEX 1.59 (< OR =4); POTASSIUM SERUM 3.9 MEQ/L (3.5-5.1); SODIUM LEVEL 135 MEQ/L (136-145); TROPONIN I < 0.02 NG/ML (< 0.10)
[2018-04-09] MEDS ORDERED: ONDANSETRON 4MG/2ML VIAL (J2405) IV ONE (21:15)
[2018-04-09] MEDS ORDERED: NS 1,000 ML IV ONE ×2 (21:15→22:15)
[2018-04-09] MEDS ORDERED: MORPHINE 4 MG/ML 1ML VIAL/SYRINGE (J2270) IV ONE ×2 (21:15→23:15)
[2018-04-09 21:44] LABS: ALBUMIN 2.8 GM/DL (3.2-5.2); ALT/SGPT 36 U/L (12-78); BILIRUBIN,DIRECT 0.8 MG/DL (0.0-0.2); BILIRUBIN,TOTAL 1.4 MG/DL (0.2-1.0); LIPASE 62 U/L (73-393); TOTAL PROTEIN 6.1 GM/DL (6.4-8.2)
[2018-04-09] MEDS ORDERED: PIPERACILLIN/TAZOBACTAM SOD 3.375 GM in D5W MINI-BAG PLUS 50 ML IV ONE (22:00)
--- NOTE | 2018-04-09 23:02 | REPVR ---
EXAM: CT Abdomen and Pelvis Without Contrast EXAM DATE/TIME: 04/09/2018 10:32 PM CLINICAL HISTORY: 58 years old, male; Pain; Abdominal pain; Generalized; Prior surgery; Surgery date: Post-operative (0-2 days); Additional info: 2 days post op lap tyrone with abd pain TECHNIQUE: Axial computed tomography images of the abdomen and pelvis without contrast. All CT scans at this facility use at least one of these dose optimization techniques: automated exposure control; mA and/or kV adjustment per patient size (includes targeted exams where dose is matched to clinical indication); or iterative reconstruction. Coronal and sagittal reformatted images were created and reviewed. COMPARISON: CT ABD/PEL W/IV CONTRAST ONLY 03/07/2018 7:14 PM FINDINGS: Lower thorax: Mild bibasilar interstitial prominence and fibro-atelectatic change. There is moderate atelectasis or consolidation right lower lobe. Minimal right pleural effusion. ABDOMEN: Liver: The liver at mid clavicular line measures 12.5 cm. There is a Jayshree's lobe. There is fluid in Bustos's pouch and fluid around the tip of the liver with suggestion of some loculation. Gallbladder and bile ducts: Right subdiaphragmatic fluid and air and gas and fluid the gallbladder fossa measuring 4.5 cm in diameter. Status post cholecystectomy. Pancreas: Normal. No ductal dilation. Spleen: The spleen measures 11.1 cm. Adrenals: Normal. No mass. Kidneys and ureters: Normal. No hydronephrosis. Stomach and bowel: Normal. No obstruction. No mucosal thickening. Appendix: A normal appendix is seen. PELVIS: Bladder: Unremarkable as visualized. Reproductive: Unremarkable as visualized. ABDOMEN and PELVIS: Intraperitoneal space: Trace fluid in the pelvis. Bones/joints: Degenerative changes of the lumbar spine including left posterolateral osteophytes L4-5 and mild secondary neural foraminal stenosis. Soft tissues: Subcutaneous gas is noted midline epigastrium which may reflect a surgical site. Vasculature: Normal. No abdominal aortic aneurysm. Lymph nodes: Normal. No enlarged lymph nodes. IMPRESSION: 1. Interval cholecystectomy with findings consistent with recent surgery since 03/07/2018. 2. Gas and fluid are noted around the liver and extend from the subdiaphragmatic region to around the hepatic tip. There is suggestion of loculation without extension of significant fluid into the pelvis although trace fluid is present. The amount of fluid and gas is somewhat greater than expected although may be postsurgical. Bile leak or infection are not excluded. 3. Mild bibasilar interstitial prominence and fibro-atelectatic change with minimal right pleural effusion and moderate right lower lobe atelectasis or consolidation. Electronically signed by: Levar Davies On 04/09/2018 23:02:21 PM
[2018-04-09] MEDS ORDERED: METOCLOPRAMIDE INJ 10MG/2ML VIAL (J2765) IV PRN (23:30)
[2018-04-09] MEDS ORDERED: ONDANSETRON 4MG/2ML VIAL (J2405) IV PRN (23:30)
[2018-04-09] MEDS ORDERED: ASPI81TAEC PO (23:49)
[2018-04-09] MEDS ORDERED: DICL1GEL3 TOP (23:52)
[2018-04-10] MEDS: LR 1,000 ML IV SCH ×3 (00:03→16:45)
[2018-04-10 01:10] VITALS: BP 125/70
[2018-04-10] MEDS: HumaLOG INSULIN (NovoLOG) PER UNIT SC SCH ×4 (01:22→18:00)
[2018-04-10] MEDS: MORPHINE 4 MG/ML 1ML VIAL/SYRINGE (J2270) IV PRN ×3 (01:24→13:47)
--- NOTE | 2018-04-10 02:00 | REP ---
Clinical: Chest and abdominal pain with recent laparoscopic surgery. Technique: Upright view of the chest with supine and upright views of the abdomen and pelvis. Findings: Bowel gas pattern suggests small bowel obstruction with dilated air filled loops of small bowel including multiple air-fluid levels. Differential diagnosis may include ileus. No free air identified. Lung bases demonstrate bibasilar atelectasis and small pleural effusions. Impression: Findings suggest small bowel obstruction and require close clinical observation. Bibasilar atelectasis and small pleural effusions. Electronically Signed by Julio Duckworth MD 04/10/2018 01:51 A
--- NOTE | 2018-04-10 02:01 | REP ---
Clinical: Chest pain. Technique: Lateral view of the chest (frontal view of the chest in the abdominal series) Findings: Bibasilar opacities suggest atelectasis/consolidation and small pleural effusions (right greater than left). Impression: Bibasilar opacities suggesting atelectasis/infiltrate and small pleural effusions (right greater than left). Electronically Signed by Julio Duckworth MD 04/10/2018 01:52 A
--- NOTE | 2018-04-10 03:35 | HPE ---
DATE OF ADMISSION: 04/09/2018 ADMITTING DIAGNOSIS: 1. Abdominal pain, probable postoperative bile leak. HISTORY OF PRESENT ILLNESS: The patient is a pleasant 58-year-old man who underwent a laparoscopic cholecystectomy on April 07. He had initially presented in February with acute cholecystitis. Apparently, he was initially tried on outpatient therapy but then presented with persistent pain and was admitted by Dr. Jensen. He was treated with antibiotics and then discharged to followup for elective scheduled cholecystectomy. He was treated as an ambulatory procedure on April 07. The operative report indicates that no problems were identified during the course of the procedure. The patient was discharged home on Saturday; and reported that Saturday evening, he noted some increase in his discomfort. He was using [place] every 6 hours, as well as some ibuprofen. By Saturday, he noted increased pain, particularly in the right upper quadrant. He did note some right shoulder pain. His appetite was poor. He reported increased pain with movement. Pain persisted and worsened and he presented to the emergency department at [facility] at 1945 on April 09. At the time of presentation, he was found to be tachycardiac with a pulse of 120. Laboratory studies showed a sharp increase in his creatinine to 2.3 with a BUN of 35. His blood sugars were elevated at 324 and his white count was elevated to 17,000 with 92% neutrophils. I was consulted and the patient is now admitted for further evaluation and treatment of what clinically would seem consistent with a postoperative bile leak. MEDICATIONS: The patient's usual medications include: - glyburide 5 mg tablets 2.5 mg twice a day - lisinopril 5 mg by mouth daily - aspirin 81 mg by mouth daily - ranitidine 150 mg by mouth twice daily as needed - allopurinol 100 mg by mouth daily - acetaminophen 650 mg by mouth every 6 hours as needed for pain - ibuprofen 600 mg every 6 hours as needed for pain - metformin hydrochloride 850 mg tablets every morning - metformin 500 mg by mouth daily at bedtime - sitagliptin 50 mg by mouth daily - trazodone 50 mg by mouth daily at bedtime - atorvastatin 40 mg by mouth daily - hydrocodone acetaminophen 5/325 tablets one every 6 hours as needed for pain. ALLERGIES: The patient's only reported drug allergies to DICYCLOMINE PAST SURGICAL HISTORY: The patient has had a tonsillectomy. He has had previous colonoscopy and upper endoscopy. He had an umbilical hernia repair. He has had a vasectomy. He has had left knee surgery and a right rotator cuff repair. MEDICAL HISTORY IS SIGNIFICANT FOR: Obstructive sleep apnea treated with C-PAP. He has a history of hypercholesterolemia. He has a history of some gastroesophageal reflux. He has had renal stone previously. He has a history of gout and arthritis. He has type 2 diabetes mellitus. SOCIAL HISTORY: The patient denies any tobacco use or significant alcohol intake. FAMILY HISTORY: Noncontributory. REVIEW OF SYSTEMS: Shows the patient denies any chest pain or palpitations. He has no cough or wheezing prior to this event. He has had no history of deep vein thrombosis (DVT) or pulmonary embolus. He denies any dysuria or hematuria. Denies any new bone or joint problems. He has had no loss of consciousness or seizure. He denies any history of hepatitis, pancreatitis or yellow jaundice. PHYSICAL EXAMINATION: The patient is a pleasant man appearing somewhat apprehensive and uncomfortable, lying quietly on the emergency department (ED) stretcher. His vitals at the time I saw him included a pulse of approximately 105, blood pressure of 92/50, respiratory rate of 20. He is alert and oriented. Skin is warm and dry. Sclerae are anicteric. The neck is without mass or bruit. Lungs are clear to auscultation bilaterally. The heart exam shows a regular rate and rhythm. The abdomen is mildly protuberant. He does have some bowel sounds present, particularly on the left side of the abdomen. He has five small incisions that are dressed with small bandages. He has some tympany to percussion in the epigastrium. He has marked tenderness to percussion and to palpation along the right lateral abdomen and flank. There is milder tenderness along the mid abdomen and he is relatively nontender in the left side of the abdomen. Extremities show no peripheral edema and he has palpable radial and dorsalis pedis pulses. His chemistries include a complete blood count (CBC) which shows a white count of 17.2 with a differential showing 92% neutrophils, 2% lymphocytes and 5% monocytes. Hemoglobin is 12 with hematocrit of 37 and platelet count is 187,000. Chemistry profile shows sodium of 135, potassium 2.9, chloride 99, CO2 of 27, BUN of 35, creatinine 2.3 and glucose of 324. Total bilirubin is 1.4 with a direct of 0.8. The other liver function tests are normal. A troponin is less than 0.02. Total protein is 6.1 with an albumin of 2.8. The lipase is 62. Imaging included a chest x-ray which showed some increased opacification of the right lung base which might be largely secondary to atelectasis. An acute abdominal series was obtained which showed some dilated loops of air-filled small bowel. A CT scan showed evidence of recent surgery. There is an air-fluid level in the gallbladder fossa with some fluid and air around the right lobe of the liver, both superiorly and inferiorly. There is some significant atelectasis in the right lower lobe of the lung. There may be a small effusion. IMPRESSION: 1. Probable postcholecystectomy bile leak now and two days postoperative from laparoscopic cholecystectomy 2. Diabetes mellitus type 2. 3. Obstructive sleep apnea. 4. Acute kidney injury. 5. Hypercholesterolemia. 6. Gastroesophageal reflux. 7. Gout. PLAN: The patient has received 2 liters of normal saline as a bolus in the emergency department. He was also given a dose of 3.375 grams of Zosyn. He will be admitted and kept nothing by mouth. He will remain on IV fluids with Ringer's lactate at 150 mL per hour for now. He will be managed with fingerstick blood sugars every 6 hours with sliding scale insulin coverage. We will avoid nonsteroidal anti-inflammatory medications for now. I have ordered a nuclear biliary scan for the morning to look for evidence of any bile leak. He will be continued on Zosyn 3.375 grams IV every 6 hours. He will be provided with analgesics as necessary with morphine or acetaminophen. The patient and his were counseled regarding my strong suspicion that he has a bile leak. He certainly has significant pain that could not be accounted for by a simple ileus from pain relievers. They had an opportunity to ask questions and I answered these to the best of my ability. I will contact Dr. Jensen in the morning to informed him of the patient's admission.
[2018-04-10 04:00] VITALS: BP 128/85
[2018-04-10] MEDS: ACETAMINOPHEN TAB 650MG DOSE (2X325MG) PO PRN ×2 (04:21→19:47)
[2018-04-10] MEDS: PIPERACILLIN/TAZOBACTAM SOD 3.375 GM in D5W MINI-BAG PLUS 50 ML IV SCH ×4 (04:22→22:43)
[2018-04-10 05:42] LABS: BASO % 0.2 % (0.0-1.0); EOS # 0.1 10^3/uL (0.0-0.50); EOS % 0.5 % (0.0-3.0); HEMATOCRIT 33.5 % (42.0-52.0); LYMPH # 0.3 10^3/uL (1.5-4.5); LYMPH % 2.4 % (24.0-44.0); MEAN CORPUSCULAR HEMOGLOBIN 29.6 pg (27.0-33.0); MEAN CORPUSCULAR HGB CONC 32.8 g/dl (32.0-36.5); MEAN CORPUSCULAR VOLUME 90.1 fl (80.0-96.0); MONO # 0.6 10^3/uL (0.0-0.8); MONO % 4.5 % (0.0-5.0); NEUTROPHILS # 12.3 10^3/uL (1.8-7.7); NEUTROPHILS % 90.1 % (36.0-66.0); PLATELET COUNT, AUTOMATED 150 10^3/uL (150-450); RED BLOOD COUNT 3.72 10^6/uL (4.30-6.10); WHITE BLOOD COUNT 13.6 10^3/uL (4.0-10.0)
[2018-04-10 06:13] LABS: ALBUMIN 2.3 GM/DL (3.2-5.2); BILIRUBIN,TOTAL 0.8 MG/DL (0.2-1.0); CREATININE FOR GFR 1.99 MG/DL (0.70-1.30); GLOMERULAR FILTRATION RATE 37.1 (>56); POTASSIUM SERUM 3.5 MEQ/L (3.5-5.1)
[2018-04-10 08:00] VITALS: BP 108/70
--- NOTE | 2018-04-10 08:14 | ECGEPIP ---
Stationary ECG Study [facility] - ED Test Date: 2018-04-09 Pat Name: SOLEDAD MORALES Department: Room: [place] [address] Gender: M Dupligraph Operator: gt : 1960 Requested By: EDELMIRA Bojorquez Order Number: [id number] Reading MD: Ky Argueta Measurements Intervals [place] Rate: 112 P: -3 MO: 137 QRS: -21 QRSD: 105 T: 3 QT: 336 QTc: 460 Interpretive Statements SINUS TACHYCARDIA POSSIBLE LEFT ATRIAL ENLARGEMENT MODERATE INTRAVENTRICULAR CONDUCTION DELAY RATE CHANGE COMPARED TO 04/02/18 Electronically Signed On 04-10-2018 8:14:23 EST by Ky Argueta
[2018-04-10] MEDS: PANTOPRAZOLE 40MG INJ (PROTONIX) (C9113) IV SCH (09:17)
[2018-04-10 11:30] VITALS: BP 101/59
--- NOTE | 2018-04-10 13:08 | IPNPDOC ---
Text Note Date of Service The patient was seen on 04/10/18. NOTE No acute events overnight. The abd pain is slightly improved. He is ambulating without any problems, and denies any nausea, or emesis. VSSAF NAD abd - soft, slight tenderness to palpation RUQ only, incisions c/d/i labs - below A) 58y/o male s/p lap tyrone on saturday with RUQ pains and leukocytosis. There is concern for possible RUQ abscess, vs. bile leak P) NPO HIDA ABX consult to IR for drain placement in the RUQ further results pending HIDA. Onur Jensen DO VS,Fishbone, I+O VS, Fishbone, I+O Laboratory Tests 04/09/18 20:32 Red Blood Count 4.20 L, Mean Corpuscular Volume 87.9, Mean Corpuscular Hemoglobin 29.5, Mean Corpuscular Hemoglobin Concent 33.6, Red Cell Distribution Width 14.0, Neutrophils (%) (Auto) 92.2 H, Lymphocytes (%) (Auto) 1.9 L, Monocytes (%) (Auto) 4.7, Eosinophils (%) (Auto) 0.1, Basophils (%) (Auto) 0.2, Neutrophils # (Auto) 15.9 H, Lymphocytes # (Auto) 0.3 L, Monocytes # (Auto) 0.8, Eosinophils # (Auto) 0.0, Basophils # (Auto) 0.0 04/10/18 05:18 Red Blood Count 3.72 L, Mean Corpuscular Volume 90.1, Mean Corpuscular Hemoglobin 29.6, Mean Corpuscular Hemoglobin Concent 32.8, Red Cell Distribution Width 13.9, Neutrophils (%) (Auto) 90.1 H, Lymphocytes (%) (Auto) 2.4 L, Monocytes (%) (Auto) 4.5, Eosinophils (%) (Auto) 0.5, Basophils (%) (Auto) 0.2, Neutrophils # (Auto) 12.3 H, Lymphocytes # (Auto) 0.3 L, Monocytes # (Auto) 0.6, Eosinophils # (Auto) 0.1, Basophils # (Auto) 0.0, Calcium Level 8.0 L, Aspartate Amino Transf (AST/SGOT) 21, Alanine Aminotransferase (ALT/SGPT) 29, Alkaline Phosphatase 89, Total Bilirubin 0.8, Total Protein 6.0 L, Albumin 2.3 L Vital Signs Date Time Temp Pulse Resp B/P (MAP) Pulse Ox O2 Delivery O2 Flow Rate FiO2 04/10/18 11:30 98.2 82 17 101/59 (73) 93 4.0 04/10/18 06:00 High Flow Cannula I&O- Last 24 Hours up to 6 AM 04/10/18 06:00 Intake Total 1050 ml Output Total 0 ml Balance 1050 ml JB JENSEN DO Apr 10, 2018 13:08
--- NOTE | 2018-04-10 14:01 | REP ---
BILIARY SCAN: 04/10/2018. COMPARISON: CT abdomen/pelvis, 04/09/2018. CLINICAL HISTORY: Abdominal pain post cholecystectomy 3 days ago. Evaluate for bile leak. Fluid and gas in the gallbladder fossa noted along with fluid surrounding the lower aspect right hepatic lobe. None into the pelvis. FINDINGS: Patient received 6.6 mCi technetium 99m mebrofenin via an IV. Sequential 5-minute images in anterior projection with a 60-minute lateral image also obtained. Tracer distribution is homogeneous and prompt. Activity is first seen in the duodenum at 10 minutes. With progressive washout of activity from the liver into the duodenum, there was activity seen into the jejunum with peristalsis by 40 minutes. Also at 40 minutes, there is activity adjacent to the far lateral aspect of the lateral segment of the left hepatic lobe. This precisely fits the gastric antrum and body of the stomach seen on CT in this same location. There was no abnormal activity around the inferior aspect of the right lobe of the liver were fluid was seen nor in the gallbladder fossa where air and fluid seen together. IMPRESSION: 1. Prompt appearance of activity in the duodenum at 10 minutes with progressive washout from the liver and the small bowel reached by 40 minutes. Activity adjacent to the lateral segment left lobe is well contained and is consistent with reflux from the duodenum into the distal stomach. There was no fluid in this region anatomically [address], and this is the same location where the body and antrum of the stomach are located on the CT adjacent to that left lobe. There is no evidence of extravasation or leak by these images. I cannot exclude the possibility of a prior bile leak that has sealed. Electronically Signed by Massimo Beckford MD 04/10/2018 07:30 P
[2018-04-10] MEDS ORDERED: LIDOCAINE 1% MDV 20ML VIAL As Ordered ONE (14:33)
[2018-04-10 16:00] VITALS: BP 121/66
--- NOTE | 2018-04-10 19:27 | REP ---
CT-GUIDED ABDOMINAL ABSCESS DRAIN The procedure was performed under the direct supervision of Dr. Beckford. Patient has a history of gas and fluid noted around the liver and extending from the subdiaphragmatic region to around the hepatic tip and in the gallbladder fossa. This is seen on a previous CT scan dated 04/09/2018. The risks and benefits of the procedure were explained to the patient and informed consent was obtained. The fluid in the gallbladder fossa was localized using CT guidance. The skin was prepped and draped in a sterile fashion. 1% lidocaine was used as a local anesthetic. Using CT guidance and Seldinger technique a 10 Sami Skater APDL catheter was inserted. 250 ml of brown colored fluid was withdrawn with a sample sent to the lab for analysis. Post drainage images demonstrate the fluid in the gallbladder fossa to Don. There is less fluid seen around the hepatic tip. The catheter was affixed to the skin and a sterile dressing was applied. The catheter was connected to a gravity drainage bag. The patient tolerated the procedure well and there were no immediate complications. After the appropriate amount of monitored convalescence the patient was discharged from the department. Reviewed by NATASHA Aly 04/10/2018 04:57 P Electronically Signed by Massimo Beckford MD 04/10/2018 07:19 P
[2018-04-10 20:00] VITALS: BP 118/68
[2018-04-11] VITALS: BP 114/68
[2018-04-11] MEDS: MORPHINE 4 MG/ML 1ML VIAL/SYRINGE (J2270) IV PRN ×5 (00:18→20:22)
[2018-04-11] MEDS: LR 1,000 ML IV SCH ×3 (02:03→20:31)
[2018-04-11 04:00] VITALS: BP 126/68
[2018-04-11] MEDS: PIPERACILLIN/TAZOBACTAM SOD 3.375 GM in D5W MINI-BAG PLUS 50 ML IV SCH ×4 (05:30→22:23)
[2018-04-11] MEDS: ACETAMINOPHEN TAB 650MG DOSE (2X325MG) PO PRN ×2 (05:31→17:25)
[2018-04-11] MEDS: HumaLOG INSULIN (NovoLOG) PER UNIT SC SCH ×4 (06:00→17:25)
[2018-04-11 07:38] LABS: HEMATOCRIT 31.6 % (42.0-52.0); HEMOGLOBIN 10.3 g/dl (13.5-17.5); MEAN CORPUSCULAR HEMOGLOBIN 29.5 pg (27.0-33.0); MEAN CORPUSCULAR HGB CONC 32.6 g/dl (32.0-36.5); MEAN CORPUSCULAR VOLUME 90.5 fl (80.0-96.0); PLATELET COUNT, AUTOMATED 144 10^3/uL (150-450); RED BLOOD COUNT 3.49 10^6/uL (4.30-6.10); WHITE BLOOD COUNT 13.3 10^3/uL (4.0-10.0)
--- NOTE | 2018-04-11 07:47 | IPNPDOC ---
Text Note Date of Service The patient was seen on 04/11/18. NOTE No acute events overnight. The abd pain is slightly improved. He is ambulating without any problems, and denies any nausea, or emesis. Drain in place in the RUQ with bile tinged clear fluid VSSAF NAD abd - soft, slight tenderness to palpation RUQ only, incisions c/d/i labs - below HIDA - no signs of bile leak A) 58y/o male s/p lap tyrone on saturday with RUQ pains and leukocytosis. RUQ fluid collection looks like old bile that spilled during surgery, vs. less likely small bile leak P) reg diet ABX monitor labs and RUQ drain likely d/c home in am if drain stays same color and will remove in office next week Onur Jensen DO VS,Fishbone, I+O VS, Fishbone, I+O Laboratory Tests 04/11/18 07:24 Red Blood Count 3.49 L, Mean Corpuscular Volume 90.5, Mean Corpuscular Hemoglobin 29.5, Mean Corpuscular Hemoglobin Concent 32.6, Red Cell Distribution Width 14.2 Vital Signs Date Time Temp Pulse Resp B/P (MAP) Pulse Ox O2 Delivery O2 Flow Rate FiO2 04/11/18 04:00 100.1 88 20 126/68 (87) 94 4.0 04/11/18 04:00 NIPPV (BIPAP/CPAP) I&O- Last 24 Hours up to 6 AM 04/11/18 06:00 Intake Total 4935 ml Output Total 2615 ml Balance 2320 ml JB JENSEN DO Apr 11, 2018 07:47
[2018-04-11 08:00] VITALS: BP 124/72
[2018-04-11] MEDS: PANTOPRAZOLE 40MG INJ (PROTONIX) (C9113) IV SCH (08:33)
[2018-04-11 12:00] VITALS: BP 150/60
[2018-04-11 16:00] VITALS: BP 130/60
[2018-04-11 20:00] VITALS: BP 138/83
[2018-04-12] VITALS (7 sets, daily range): BP systolic 125–162; BP diastolic 78–97
[2018-04-12] MEDS: MORPHINE 4 MG/ML 1ML VIAL/SYRINGE (J2270) IV PRN ×7 (00:23→23:47)
[2018-04-12] MEDS: LR 1,000 ML IV SCH ×5 (04:20→20:43)
[2018-04-12 05:11] LABS: HEMATOCRIT 34.1 % (42.0-52.0); HEMOGLOBIN 10.8 g/dl (13.5-17.5); MEAN CORPUSCULAR HEMOGLOBIN 28.6 pg (27.0-33.0); MEAN CORPUSCULAR HGB CONC 31.7 g/dl (32.0-36.5); MEAN CORPUSCULAR VOLUME 90.5 fl (80.0-96.0); PLATELET COUNT, AUTOMATED 165 10^3/uL (150-450); RED BLOOD COUNT 3.77 10^6/uL (4.30-6.10); WHITE BLOOD COUNT 13.1 10^3/uL (4.0-10.0)
[2018-04-12 05:38] LABS: ALT/SGPT 32 U/L (12-78); BILIRUBIN,TOTAL 1.1 MG/DL (0.2-1.0); BLOOD UREA NITROGEN 25 MG/DL (7-18); CALCIUM LEVEL 8.1 MG/DL (8.5-10.1); CARBON DIOXIDE LEVEL 28 MEQ/L (21-32); CHLORIDE LEVEL 101 MEQ/L (98-107); CREATININE FOR GFR 1.29 MG/DL (0.70-1.30); GLOMERULAR FILTRATION RATE > 60.0 (>56); GLUCOSE, FASTING 146 MG/DL (70-100); POTASSIUM SERUM 3.4 MEQ/L (3.5-5.1); SODIUM LEVEL 138 MEQ/L (136-145); TOTAL PROTEIN 6.2 GM/DL (6.4-8.2)
[2018-04-12] MEDS: HumaLOG INSULIN (NovoLOG) PER UNIT SC SCH ×5 (05:38→20:44)
[2018-04-12] MEDS: PIPERACILLIN/TAZOBACTAM SOD 3.375 GM in D5W MINI-BAG PLUS 50 ML IV SCH (05:38)
[2018-04-12] MEDS: PANTOPRAZOLE 40MG INJ (PROTONIX) (C9113) IV SCH (08:18)
[2018-04-12] MEDS: POTASSIUM CHLORIDE 10 MEQ SR TABLET PO SCH (10:16)
[2018-04-12] MEDS: LevoFLOXacin IV 500 MG in APPROPRIATE DILUENT 1 EA IV SCH (11:47)
[2018-04-12] MEDS ORDERED: LevoFLOXacin 500 MG TABLET PO SCH (12:00)
--- NOTE | 2018-04-12 15:03 | IPNPDOC ---
Subjective General Date/Time Seen The patient was seen on 04/12/18 at 14:26. Subject Chief Complaint/History The patient is a 58-year-old male admitted with a reason for visit of Abdominal Pain. He continues to report of right upper quadrant discomfort, fullness, poor appetite. He appears slightly short of breath and is on nasal cannula. He has not had a bowel movement since admission. He does not report much nausea. He's also been afebrile. Current Medications Current Medications Current Medications Acetaminophen (Tylenol Tab) 650 mg Q4HP PRN PO MILD PAIN or TEMP > 100.4 Last administered on 04/11/18at 17:25; Start 04/09/18 at 23:30 Home Med (Med Rec Complete!) ASDIRECTED XX ; Start 04/10/18 at 00:00; Stop 04/10/18 at 00:00; Status DC Insulin Human Lispro (HumaLOG INSULIN) SEE PROTOCOL TABLE Q6H SC Last administered on 04/12/18at 11:53; Start 04/10/18 at 00:00 Lactated Ringer's 1,000 ml @ 150 mls/hr Q6H40M IV Last administered on 04/12/18at 13:34; Start 04/09/18 at 23:30 Levofloxacin (Levaquin) 500 mg DAILY@06 PO ; Start 04/12/18 at 12:00; Stop 04/12/18 at 12:00; Status DC Levofloxacin 500 mg/IV Miscellaneous Supplies 100 ml @ 100 mls/hr Q24H IV Last administered on 04/12/18at 11:47; Start 04/12/18 at 12:00 Metoclopramide HCl (REGLAN INJection) 10 mg Q6HP PRN IV NAUSEA OR VOMITING; Start 04/09/18 at 23:30 Morphine Sulfate (Morphine Sulfate Inj) 2 mg Q2HP PRN IV MODERATE PAIN (PS 5-7) Last administered on 04/12/18at 12:56; Start 04/09/18 at 23:30 Morphine Sulfate (Morphine Sulfate Inj) 4 mg Q2HP PRN IV SEVERE PAIN (PS 8-10) Last administered on 04/12/18at 10:17; Start 04/09/18 at 23:30 Ondansetron HCl (ZOFRAN INJection) 4 mg Q6HP PRN IV NAUSEA OR VOMITING; Start 04/09/18 at 23:30 Pantoprazole Sodium (Protonix) 40 mg DAILY IV Last administered on 04/12/18at 08:18; Start 04/10/18 at 09:00 Piperacillin Sod/ Tazobactam Sod 3.375 gm/Dextrose 50 ml @ 50 mls/hr Q6H IV Last administered on 04/12/18at 05:38; Start 04/10/18 at 05:00; Stop 04/12/18 at 09:31; Status DC Potassium Chloride (Micro-K Extencaps) 40 meq DAILY PO Last administered on 04/12/18at 10:16; Start 04/12/18 at 09:00; Stop 04/14/18 at 09:01 Allergies Coded Allergies: Dicyclomine (Unverified Allergy, Mild, loss of appetite, 03/28/18) Objective Physical Examination Examination GENERAL APPEARANCE:Appears to be mildly uncomfortable. Appear slightly shorter breath.. SKIN: Warm and dry. HEENT: Lips appear dry. NECK: Short, supple neck. No obvious regular basis tension. LUNGS: Decreased respiratory movement, decreased breath sounds over the right posterior but no wheezing, no rales.. HEART: No chest wall abnormalities. Regular rate and rhythm with no murmurs appreciated. ABDOMEN: Abdomen Round, soft, moderately distended, tensely distended though he has some hypoactive bowel sounds. Mildly uncomfortable with palpation over the right upper quadrant area but no real tenderness. His right upper quadrant trained with bilious drainage in the bag. EXTREMITIES: Mild lower extremity edema bilaterally, warm and moist. Vital Signs Vital Signs Date Time Temp Pulse Resp B/P (MAP) Pulse Ox O2 Delivery O2 Flow Rate FiO2 04/12/18 13:10 16 4.0 04/12/18 12:00 99.0 94 158/88 (111) 99 04/12/18 06:00 High Flow Cannula I&Os I&O- Last 24 Hours up to 6 AM 04/12/18 06:00 Intake Total 4435 ml Output Total 1590 ml Balance 2845 ml Percutaneous drain put out 210 ML's bilious fluid yesterday Laboratory Data Labs 24H Laboratory Tests 2 04/11/18 17:16: Bedside Glucose (Misc Panel) 140H 04/11/18 23:44: Bedside Glucose (Misc Panel) 129H 04/12/18 04:38: Nucleated Red Blood Cells % (auto) 0.0, Anion Gap 9, Glomerular Filtration Rate > 60.0, Blood Urea Nitrogen 25H, Creatinine 1.29, Sodium Level 138, Potassium Level 3.4L, Chloride Level 101, Carbon Dioxide Level 28, Calcium Level 8.1L, Aspartate Amino Transf (AST/SGOT) 33, Alanine Aminotransferase (ALT/SGPT) 32, Alkaline Phosphatase 116, Total Bilirubin 1.1H, Total Protein 6.2L, Albumin 2.0L, Albumin/Globulin Ratio 0.48L 04/12/18 05:24: Bedside Glucose (Misc Panel) 139H 04/12/18 11:32: Bedside Glucose (Misc Panel) 173H CBC/BMP Laboratory Tests 04/12/18 04:38 Red Blood Count 3.77 L, Mean Corpuscular Volume 90.5, Mean Corpuscular Hemoglobin 28.6, Mean Corpuscular Hemoglobin Concent 31.7 L, Red Cell Distribution Width 14.4, Calcium Level 8.1 L, Aspartate Amino Transf (AST/SGOT) 33, Alanine Aminotransferase (ALT/SGPT) 32, Alkaline Phosphatase 116, Total Bilirubin 1.1 H, Total Protein 6.2 L, Albumin 2.0 L Microbiology Microbiology 04/10/18 Anaerobic Culture, Received Pending 04/10/18 Gram Stain - Final, Complete 04/10/18 Abscess Culture - Final, Complete Escherichia Coli Impression POD 5 after laparoscopic cholecystectomy Biloma s/p percutaneous drainage Patient feels mildly improved after percutaneous drainage of postoperative biloma following laparoscopic cholecystectomy. He looks quite distended to me and probably has an element of ileus. He also is still in high flow O2 nasal cannula at 4LPM with noticeable decreased inspiratory effort probably from the pain and discomfort on their right upper quadrant area. He also still has some continued drainage into the drain bag. This cultures only show spent sensitive E. coli. We will switch into Levaquin IV. I'll come down to full liquids as I think he has significant ileus though he's not complaining much nausea. Observers course and expect improvements otherwise would suggest either doing MRCP or proceeding to ERCP despite the negative initial HIDA scan especially if the drainage a month is not come down the next few days. Plan / VTE VTE Prophylaxis Ordered?: Yes TRINO RODRIGUES MD Apr 12, 2018 15:03
[2018-04-12] MEDS ORDERED: DEXTROSE 50% 50 ML SYRINGE IV PRN (16:30)
[2018-04-12] MEDS ORDERED: GLUCOSE 4 GM CHEW TABLET PO PRN (16:30)
[2018-04-12] MEDS ORDERED: GLUCAGON FOR INJ 1 MG VIAL (J1610) SC PRN (16:30)
[2018-04-12] MEDS ORDERED: MIRALAX *UNIT DOSE* 17GM PACKET PO ONE (17:00)
[2018-04-12] MEDS: ACETAMINOPHEN TAB 650MG DOSE (2X325MG) PO PRN (23:45)
[2018-04-13] MEDS ORDERED: FUROSEMIDE 40 MG/4 ML VIAL (J1940) As Ordered ONE (00:10)
[2018-04-13] MEDS ORDERED: FUROSEMIDE 40 MG/4 ML VIAL (J1940) IV ONE (00:15)
--- NOTE | 2018-04-13 01:07 | REPVR ---
EXAM: XR Chest, 1 View EXAM DATE/TIME: 04/13/2018 12:35 AM CLINICAL HISTORY: 58 years old, male; Signs and symptoms; Other: SOB TECHNIQUE: XR of the chest, 1 view. COMPARISON: CR Abdomen,Flat Upright,PA CHEST 04/09/2018 8:12 PM FINDINGS: Lungs: Lungs are diffusely hypoexpanded. No evidence of pulmonary edema. No focal consolidation or parenchymal lung mass. Pleural space: There may be small pleural effusions and adjacent atelectasis, unchanged. No pneumothorax. Heart/Mediastinum: Heart and mediastinal contours are normal, given the degree of inflation. Bones/joints: Unremarkable. Soft tissues: Bony structures and extrathoracic soft tissues are unremarkable. IMPRESSION: Hypoexpanded lungs, unchanged in appearance since the prior radiograph, suggestive of small dependent pleural effusions and atelectasis Electronically signed by: Zak Barragan On 04/13/2018 01:07:05 AM
[2018-04-13 04:00] VITALS: BP 138/89
[2018-04-13] MEDS: MORPHINE 4 MG/ML 1ML VIAL/SYRINGE (J2270) IV PRN ×5 (04:08→23:59)
[2018-04-13] MEDS: LR 1,000 ML IV SCH (06:30)
[2018-04-13 08:00] VITALS: BP 150/80
[2018-04-13] MEDS: HumaLOG INSULIN (NovoLOG) PER UNIT SC SCH ×4 (08:01→21:00)
[2018-04-13] MEDS: PANTOPRAZOLE 40MG INJ (PROTONIX) (C9113) IV SCH (08:29)
[2018-04-13] MEDS: POTASSIUM CHLORIDE 10 MEQ SR TABLET PO SCH ×2 (08:31→10:55)
[2018-04-13 10:46] LABS: HEMATOCRIT 35.7 % (42.0-52.0); HEMOGLOBIN 11.6 g/dl (13.5-17.5); MEAN CORPUSCULAR HEMOGLOBIN 29.4 pg (27.0-33.0); MEAN CORPUSCULAR HGB CONC 32.5 g/dl (32.0-36.5); MEAN CORPUSCULAR VOLUME 90.4 fl (80.0-96.0); PLATELET COUNT, AUTOMATED 162 10^3/uL (150-450); RED BLOOD COUNT 3.95 10^6/uL (4.30-6.10); WHITE BLOOD COUNT 11.6 10^3/uL (4.0-10.0)
[2018-04-13 11:15] LABS: ALBUMIN 1.9 GM/DL (3.2-5.2); ALT/SGPT 33 U/L (12-78); BILIRUBIN,TOTAL 1.2 MG/DL (0.2-1.0); BLOOD UREA NITROGEN 21 MG/DL (7-18); CALCIUM LEVEL 7.9 MG/DL (8.5-10.1); CARBON DIOXIDE LEVEL 31 MEQ/L (21-32); CHLORIDE LEVEL 100 MEQ/L (98-107); CREATININE FOR GFR 1.05 MG/DL (0.70-1.30); GLOMERULAR FILTRATION RATE > 60.0 (>56); GLUCOSE, FASTING 195 MG/DL (70-100); POTASSIUM SERUM 3.4 MEQ/L (3.5-5.1); SODIUM LEVEL 139 MEQ/L (136-145); TOTAL PROTEIN 5.2 GM/DL (6.4-8.2)
[2018-04-13] MEDS: LevoFLOXacin IV 500 MG in APPROPRIATE DILUENT 1 EA IV SCH (11:51)
[2018-04-13 12:00] VITALS: BP 152/88
--- NOTE | 2018-04-13 12:39 | IPNPDOC ---
Subjective General Date/Time Seen The patient was seen on 04/13/18 at 12:29. Subject Chief Complaint/History Patient continues to complain of right-sided abdominal discomfort, remains distended. He was able to pass some flatus after taking some MiraLAX yesterday which relieved some of his discomfort and distention with no bowel movements recorded. Discharge was concerned yesterday that he was looking short of breath, coughing up more sputum. He remains on 4 L high flow nasal cannula. He Lasix which seems to have improved his breathing some. He has been afebrile. Current Medications Current Medications Current Medications Acetaminophen (Tylenol Tab) 650 mg Q4HP PRN PO MILD PAIN or TEMP > 100.4 Last administered on 04/12/18at 23:45; Start 04/09/18 at 23:30 Dextrose (Dextrose 50%) 25 ml ASDIRECTED PRN IV SEE LABEL COMMENTS; Start 04/12/18 at 16:30 Glucagon (Glucagon) 1 mg ASDIRECTED PRN SC SEE LABEL COMMENTS; Start 04/12/18 at 16:30 Glucose (Glucose) 16 GM ASDIRECTED PRN PO SEE LABEL COMMENTS; Start 04/12/18 at 16:30 Home Med (Med Rec Complete!) ASDIRECTED XX ; Start 04/10/18 at 00:00; Stop 04/10/18 at 00:00; Status DC Insulin Human Lispro (HumaLOG INSULIN) SEE PROTOCOL TABLE Q6H SC Last administered on 04/12/18at 11:53; Start 04/10/18 at 00:00; Stop 04/12/18 at 16:26; Status DC Insulin Human Lispro (HumaLOG INSULIN) See Protocol Table AC SC Last administered on 04/12/18at 17:54; Start 04/12/18 at 17:30 Insulin Human Lispro (HumaLOG INSULIN) See Protocol Table QHS SC ; Start 04/12/18 at 21:00 Lactated Ringer's 1,000 ml @ 80 mls/hr [id number] IV Last administered on 04/13/18at 06:30; Start 04/09/18 at 23:30; Stop 04/13/18 at 12:28; Status DC Levofloxacin (Levaquin) 500 mg DAILY@06 PO ; Start 04/12/18 at 12:00; Stop 04/12/18 at 12:00; Status DC Levofloxacin 500 mg/IV Miscellaneous Supplies 100 ml @ 100 mls/hr Q24H IV Last administered on 04/13/18at 11:51; Start 04/12/18 at 12:00 Metoclopramide HCl (REGLAN INJection) 10 mg Q6HP PRN IV NAUSEA OR VOMITING; Start 04/09/18 at 23:30 Morphine Sulfate (Morphine Sulfate Inj) 2 mg Q2HP PRN IV MODERATE PAIN (PS 5-7) Last administered on 04/13/18at 04:08; Start 04/09/18 at 23:30 Morphine Sulfate (Morphine Sulfate Inj) 4 mg Q2HP PRN IV SEVERE PAIN (PS 8-10) Last administered on 04/13/18 08:30; Start 04/09/18 at 23:30 Ondansetron HCl (ZOFRAN INJection) 4 mg Q6HP PRN IV NAUSEA OR VOMITING; Start 04/09/18 at 23:30 Pantoprazole Sodium (Protonix) 40 mg DAILY IV Last administered on 04/13/18 08:29; Start 04/10/18 at 09:00 Piperacillin Sod/ Tazobactam Sod 3.375 gm/Dextrose 50 ml @ 50 mls/hr Q6H IV Last administered on 04/12/18 05:38; Start 04/10/18 at 05:00; Stop 04/12/18 at 09:31; Status DC Potassium Chloride/Dextrose/ Sod Cl 1,000 ml @ 80 mls/hr [id number] IV ; Start 04/13/18 at 12:30 Potassium Chloride (Micro-K Extencaps) 40 meq DAILY PO Last administered on 04/13/18at 10:55; Start 04/12/18 at 09:00; Stop 04/14/18 at 09:01 Allergies Coded Allergies: Dicyclomine (Unverified Allergy, Mild, loss of appetite, 03/28/18) Objective Physical Examination Examination GENERAL APPEARANCE: Looks slightly more comfortable than he did yesterday, the short of breath. SKIN: Warm and moist. HEENT: Lips appear dry. Anicteric sclerae.. NECK: Supple, no thyromegaly. No obvious jugular venous distention. LUNGS: Decreased breath sounds over the right posterior lobes, mild slight rales over the right posterior lobe, no wheezing. HEART: No chest wall abnormalities. Regular rate and rhythm with no murmurs appreciated. ABDOMEN: Abdomen is round, moderately distended, somewhat less distended than he was yesterday, soft, tender to palpation over the right upper quadrant, right lower quadrant area with mild guarding. Minimally tender over the epigastric area. Right upper quadrant drain still with clear bilious fluid. EXTREMITIES: Mild lower extremity edema bilaterally. Vital Signs Vital Signs Date Time Temp Pulse Resp B/P (MAP) Pulse Ox O2 Delivery O2 Flow Rate FiO2 04/13/18 08:46 18 4.0 04/13/18 08:00 97.8 93 150/80 (103) 94 04/13/18 06:00 Nasal Cannula I&Os I&O- Last 24 Hours up to 6 AM 04/13/18 06:00 Intake Total 4050 ml Output Total 2675 ml Balance 1375 ml Laboratory Data Labs 24H Laboratory Tests 2 04/12/18 16:34: Bedside Glucose (Misc Panel) 161H 04/12/18 20:35: Bedside Glucose (Misc Panel) 194H 04/13/18 10:35: Nucleated Red Blood Cells % (auto) 0.0, Anion Gap 8, Glomerular Filtration Rate > 60.0, Blood Urea Nitrogen 21H, Creatinine 1.05, Sodium Level 139, Potassium Level 3.4L, Chloride Level 100, Carbon Dioxide Level 31, Calcium Level 7.9L, Aspartate Amino Transf (AST/SGOT) 31, Alanine Aminotransferase (ALT/SGPT) 33, Alkaline Phosphatase 120H, Total Bilirubin 1.2H, Total Protein 5.2L, Albumin 1.9L, Albumin/Globulin Ratio 0.58L 04/13/18 11:17: Bedside Glucose (Misc Panel) 196H CBC/BMP Laboratory Tests 04/13/18 10:35 Red Blood Count 3.95 L, Mean Corpuscular Volume 90.4, Mean Corpuscular Hemoglobin 29.4, Mean Corpuscular Hemoglobin Concent 32.5, Red Cell Distribution Width 14.4, Calcium Level 7.9 L, Aspartate Amino Transf (AST/SGOT) 31, Alanine Aminotransferase (ALT/SGPT) 33, Alkaline Phosphatase 120 H, Total Bilirubin 1.2 H, Total Protein 5.2 L, Albumin 1.9 L Microbiology Microbiology 04/10/18 Anaerobic Culture - Final, Complete 04/10/18 Gram Stain - Final, Complete 04/10/18 Abscess Culture - Final, Complete Escherichia Coli Impression Postop day 6 following laparoscopic cholecystectomy for cholelithiasis, prior history of acute cholecystitis Postoperative biloma status post percutaneous drainage. Still showing some signs of postoperative ileus and continued bilious drainage 100 mL Alok from his percutaneous drain. I'm suspicious that he might have an ongoing low-level leak that wasn't picked up by the HIDA scan. I will consult gastroenterology and the abdomen evaluated for possible ERCP. Other options would be to repeat HIDA scan and/or do an MRCP. Continue with Levaquin. Cultures show pansensitive Escherichia coli. He is making more urine after Lasix. We will order doses of Lasix as he might also be getting some what septic and I don't want to drop his pressure. Plan / VTE VTE Prophylaxis Ordered?: Yes TRINO RODRIGUES MD Apr 13, 2018 12:39
[2018-04-13] MEDS: KCL 20MEQ IN D5/0.45NS 1000ML 1,000 ML IV SCH (12:45)
--- NOTE | 2018-04-13 14:43 | CR.PDOC ---
General Date of Consultation: Apr 13, 2018 Referring Provider: TRINO PERALES MD Attending Physician: DRAKE NICOLAS MD Consultation Primary physician/ hospitalist: Dr. Perales Reason for consult: Bile leak status post cholecystectomy. HPI: 58-year-old male patient with DM type II, HLD, gout, LUBA (on CPAP at night), had laparoscopic cholecystectomy on 04/07/2018, later presented to ER on 04/09/2018 for complaints of worsening abdominal pain, inability to tolerate oral diet. Patient had CT abdomen, HIDA scan, CT guided drain placement with drainage of bilious fluid since 04/10/2018. Due to ongoing bilious drainage and persistent abdominal discomfort, GI was consulted for possible ERCP. Patient reports persistent right-sided and epigastric abdominal pain, moderately severe, associated with loss of appetite, and some abdominal distention. Patient also reports since 1 week she did not have any bowel movements. Patient also reports having cough with some whitish expectoration, intermittent fever and shortness of breath for which he is on nasal oxygen. Patient denies any other GI symptoms. Pertinent negative GI symptoms: Patient denies vomiting, diarrhea, hematemesis, melena or hematochezia. Review of Systems: GI: as stated above CVS: No chest pain, No palpitations, No leg swelling. RS: As stated above. [employer]: No dizziness, No motor weakness, No sensory problems Hematology: No bruising, No gum bleeding, Musculoskeletal: No joint pain, ambulating well. Skin: No rash : No hematuria, No burning sensation of the urine ENT: No ear discharge/ pain, No dysphagia. Eyes: No photophobia. Home medications: reviewed. Antithrombotic agents -none Medical h/o: As above. Surgical h/o: Laparoscopic cholecystectomy. Social h/o: Alcohol-denies, tobacco-denies, IVDA/ drugs-denies. Family h/o of GI cancers -noncontributory Prior Endoscopies: --- EGD - [address] Curtis - for suspected gastroparesis -- normal except benign duodenal polyp. --- Colonoscopy --in [address] Curtis -- for chronic diarrhea -- noted 1 tubular adenoma. Recommended repeat in 5 years. Prior GI evaluation: Seen by Dr. Curtis in [facility] GI Exam: Vitals: reviewed General: Alert and oriented x 3, mild distress HEENT: No pallor, no icterus. Normal oropharynx, No cervical lymph nodes. Chest: symmetric with bilateral clear air entry, CVS: S1, S2 heard, normal, no murmurs . Abdomen: Mildly distended, lapraroscopy surgical scars, tendernes in right upper audrant and epigastric area without guarding or rigidity, no palpable masses, normal bowel sounds heard. Rectal exam: Patient refused. Extremities: no pedal edema, pulses palpable. [employer]: no focal motor or sensory deficits. Moves all extremities Skin: no rash. Labs: reviewed. Imaging tests: reviewed Impression: -- Acute onset epigastric and right upper quadrant abdominal pain, with air- fluid collection, with Abnormal CT scan, post operatively after laparoscopic cholecystectomy, with right upper quadrant drain placement with persistent biliary drainage -- DDx-- Supected Bile leak from Gallbladder duct stump vs less likely CBD leak ( normal HIDA sca katherine past). -- Elevated WBC with fevers, cough and phlegm -- suspected sepsis -- likely from Atelectasis vs intrabdominal collection. -- Chronic constipation. Recommendations: - Patient educated about the test results, possible differential diagnoses and All questions answered. - NPO - Continue Antibiotics therapy based on the Septic work up as per Primary team. - Incentive spirometry and chest physiotherapy. ( consider pulmonary evaluation if needed for optimization of CPAP therapy). - For constipation and abdominal bloating, will give fleet enema today and tomorrow morning. - In view of ongoing drainage and prior HIDA scan being normal - will obtain MRCP to further evaluate the biliary tree. - Based on the MRCP will schedule for ERCP with CBD stent placement on Saturday or Saturday. - The procedure, indications, risks (bleeding, perforation, infection, hypotension, respiratory depression, allergy, need for endotracheal intubation, surgery, colostomy, cardiac arrest, even ), benefits, limitations (e.g., missing a lesion), and all other alternatives (including no intervention) were explained to the patient who understood and agreed for the procedure. Printed material provided to patient. Plan of care discussed with patient and primary team. Patient verbalized understanding and agreed with the plan. Allergies Coded Allergies: Dicyclomine (Unverified Allergy, Mild, loss of appetite, 03/28/18) Home Medications Scheduled Allopurinol (Allopurinol) 100 Mg Tab, 100 MG PO DAILY, (Reported) Aspirin (Aspirin EC) 81 Mg Tabec, 81 MG PO DAILY, (Reported) Atorvastatin Calcium (Atorvastatin Calcium) 40 Mg Tab, 40 MG PO DAILY, (Reported) Glyburide (Glyburide) 5 Mg Tab, 2.5 MG PO BID, (Reported) Lisinopril (Lisinopril) 5 Mg Tab, 5 MG PO DAILY, (Reported) Metformin Hydrochloride (Metformin HCl) 850 Mg Tab, 850 MG PO QAM, (Reported) Metformin Hydrochloride (Metformin HCl) 500 Mg Tab, 500 MG PO QHS, (Reported) Sitagliptin (Januvia) 50 Mg Tab, 50 MG PO DAILY, (Reported) Scheduled PRN (Hydrocodone Bitartrate/AC 5-325 mg) 1 Tab Tab, 1 TAB PO Q6H PRN for PAIN, (Reported) Diclofenac Sodium (Diclofenac Sodium) 1 % Gel, 1 DOSE TOP QID PRN for PAIN, (Reported) USES ON RIGHT SHOULDER Ibuprofen (Ibuprofen) 200 Mg Tab, 400 MG PO Q6H PRN for PAIN, (Reported) Ranitidine HCl (Ranitidine [address]) 150 Mg Tab, 1 TAB PO BID PRN for HEARTBURN, (Reported) Trazodone HCl (Trazodone HCl) 50 Mg Tab, 50 MG PO QHS PRN for INSOMNIA, (Reported) DRAKE NICOLAS MD Apr 13, 2018 14:43
[2018-04-13 16:00] VITALS: BP 140/82
[2018-04-13] MEDS: FLEET ENEMA PR SCH (18:34)
[2018-04-13 20:00] VITALS: BP 143/88
[2018-04-14] VITALS (11 sets, daily range): BP systolic 133–168; BP diastolic 71–110
[2018-04-14 05:28] LABS: HEMATOCRIT 35.2 % (42.0-52.0); HEMOGLOBIN 11.4 g/dl (13.5-17.5); MEAN CORPUSCULAR HEMOGLOBIN 28.9 pg (27.0-33.0); MEAN CORPUSCULAR HGB CONC 32.4 g/dl (32.0-36.5); MEAN CORPUSCULAR VOLUME 89.1 fl (80.0-96.0); PLATELET COUNT, AUTOMATED 200 10^3/uL (150-450); RED BLOOD COUNT 3.95 10^6/uL (4.30-6.10); WHITE BLOOD COUNT 11.5 10^3/uL (4.0-10.0)
[2018-04-14 05:51] LABS: ALBUMIN 1.9 GM/DL (3.2-5.2); ALT/SGPT 33 U/L (12-78); BILIRUBIN,TOTAL 1.2 MG/DL (0.2-1.0); BLOOD UREA NITROGEN 19 MG/DL (7-18); CARBON DIOXIDE LEVEL 30 MEQ/L (21-32); CHLORIDE LEVEL 100 MEQ/L (98-107); CREATININE FOR GFR 1.04 MG/DL (0.70-1.30); GLOMERULAR FILTRATION RATE > 60.0 (>56); GLUCOSE, FASTING 234 MG/DL (70-100); POTASSIUM SERUM 3.4 MEQ/L (3.5-5.1); SODIUM LEVEL 138 MEQ/L (136-145); TOTAL PROTEIN 5.8 GM/DL (6.4-8.2)
[2018-04-14 05:54] LABS: EOSINOPHILS 1 % (0-5); LYMPHOCYTES 8 % (16-52); METAMYELOCYTES 1 % (0-0); MONOCYTES 10 % (0-8); MYELOCYTES 1 % (0-0); NEUTROPHILS 79 % (35-75)
[2018-04-14 05:55] LABS: PLATELET ESTIMATE NORMAL (NORMAL)
[2018-04-14] MEDS: FLEET ENEMA PR SCH (06:07)
[2018-04-14] MEDS: MORPHINE 4 MG/ML 1ML VIAL/SYRINGE (J2270) IV PRN ×3 (06:45→17:03)
--- NOTE | 2018-04-14 08:14 | IPNPDOC ---
Text Note Date of Service The patient was seen on 04/14/18. NOTE No acute events over the weekend. He is still having pain in the RUQ that makes it hard to get out of bed. Breathing is much improved, and he has passed lots of gas with the enemas. Drain in place in the RUQ with bile tinged clear fluid still VSSAF NAD abd - soft, slight tenderness to palpation RUQ only, incisions c/d/i labs - below HIDA - no signs of bile leak A) 58y/o male s/p lap tyroen on saturday with RUQ pains and leukocytosis. RUQ fluid collection looks like old bile that spilled during surgery, vs. small bile leak from cystic duct stump P) NPO ABX monitor labs and RUQ drain plan on ERCP this afternoon will follow Onur Jensen DO VS,Erick, I+O VS, Erick, I+O Laboratory Tests 04/13/18 10:35 Red Blood Count 3.95 L, Mean Corpuscular Volume 90.4, Mean Corpuscular Hemoglobin 29.4, Mean Corpuscular Hemoglobin Concent 32.5, Red Cell Distribution Width 14.4, Calcium Level 7.9 L, Aspartate Amino Transf (AST/SGOT) 31, Alanine Aminotransferase (ALT/SGPT) 33, Alkaline Phosphatase 120 H, Total Bilirubin 1.2 H, Total Protein 5.2 L, Albumin 1.9 L 04/14/18 05:04 Red Blood Count 3.95 L, Mean Corpuscular Volume 89.1, Mean Corpuscular Hemoglobin 28.9, Mean Corpuscular Hemoglobin Concent 32.4, Red Cell Distribution Width 14.4, Calcium Level 8.0 L, Aspartate Amino Transf (AST/SGOT) 22, Alanine Aminotransferase (ALT/SGPT) 33, Alkaline Phosphatase 125 H, Total Bilirubin 1.2 H, Total Protein 5.8 L, Albumin 1.9 L Vital Signs Date Time Temp Pulse Resp B/P (MAP) Pulse Ox O2 Delivery O2 Flow Rate FiO2 04/14/18 07:56 98.7 86 20 152/82 (105) 95 4.0 04/14/18 07:00 High Flow Cannula I&O- Last 24 Hours up to 6 AM 04/14/18 06:00 Intake Total 2300 ml Output Total 3315 ml Balance -1015 ml JB JENSEN DO Apr 14, 2018 08:14
[2018-04-14] MEDS: SENOKOT S TAB PO SCH ×2 (10:11→21:46)
[2018-04-14] MEDS: PANTOPRAZOLE 40MG INJ (PROTONIX) (C9113) IV SCH (10:11)
[2018-04-14] MEDS: HumaLOG INSULIN (NovoLOG) PER UNIT SC SCH ×4 (10:12→21:47)
[2018-04-14] MEDS: LevoFLOXacin IV 500 MG in APPROPRIATE DILUENT 1 EA IV SCH (12:26)
[2018-04-14] MEDS ORDERED: LIDOCAINE 2% INJ 100 MG/5 ML SDV (FOR ANES.) As Ordered ONE ×2 (12:40→14:48)
[2018-04-14] MEDS ORDERED: PROPOFOL 200 MG/20 ML VIAL As Ordered ONE (12:40)
[2018-04-14] MEDS ORDERED: ROCURONIUM BROMIDE 50 MG/5 ML VIAL As Ordered ONE (12:40)
[2018-04-14] MEDS ORDERED: fentaNYL 100 MCG/2 ML INJECTION (J3010) As Ordered ONE (12:40)
[2018-04-14] MEDS ORDERED: MIDAZOLAM INJ 2 MG/2 ML VIAL (J2250) As Ordered ONE (12:41)
[2018-04-14] MEDS ORDERED: ONDANSETRON 4MG/2ML VIAL (J2405) As Ordered ONE (12:44)
[2018-04-14] MEDS ORDERED: dexameTHASONE 4 MG/ML 1ML VIAL (J1100) As Ordered ONE (12:44)
--- NOTE | 2018-04-14 14:06 | REP ---
MRCP without contrast: History: Possible bile leak. Comparison CT study April 09, 2018. The patient is status post percutaneous cholecystostomy tube placement on April 10, 2018. Findings: There are persistent complex fluid collections in the perihepatic region adjacent to the inferior aspect of the right lobe of the liver anteriorly and posteriorly. The gallbladder is decompressed. Percutaneous cholecystostomy tube is seen in what appears to be good position. The intrahepatic bile ducts are not dilated. The extrahepatic bile ducts are normal in caliber as well. No pancreatic ductal dilation is observed. The perihepatic fluid collections appear a little larger. The two largest loculations measure 8.5 and 6.8 cm in diameter respectively. No hepatic or splenic parenchymal lesion is seen. Impression: Enlarging perihepatic fluid collections noted. Percutaneous cholecystostomy tube in place. No biliary ductal dilation seen. Electronically Signed by Eliceo Ruiz MD 04/14/2018 02:43 P
[2018-04-14] MEDS ORDERED: PHENYLephrine HCL 500 MCG/5 ML (100MCG/ML) SYRINGE (J2370) As Ordered ONE (14:53)
[2018-04-14] MEDS: ISOVUE-300 61% 50ML VIAL (Q9967) As Ordered ONE ×2 (15:00→15:04)
--- NOTE | 2018-04-14 15:44 | ROOR ---
Patient Name: Massimo Ibanez Procedure Date: 04/14/2018 2:31 PM Date of : 1960 Age: 58 Room: Main OR Gender: Male Note Status: Finalized Procedure: ERCP Indications: Bile leak Providers: Raffi Beard MD Referring MD: 2. Inpatient 2. Inpatient Requesting Provider: Medicines: General Anesthesia Complications: No immediate complications. Procedure: Pre-Anesthesia Assessment: - Prior to the procedure, a History and Physical was performed, and patient medications and allergies were reviewed. The patient is competent. The risks and benefits of the procedure and the sedation options and risks were discussed with the patient. All questions were answered and informed consent was obtained. Patient identification and proposed procedure were verified by the physician, the nurse and the anesthesiologist in the procedure room. Mental Status Examination: alert and oriented. Airway Examination: normal oropharyngeal airway and neck mobility. Respiratory Examination: clear to auscultation. CV Examination: normal. Prophylactic Antibiotics: The patient does not require prophylactic antibiotics. Prior Anticoagulants: The patient has taken no previous anticoagulant or antiplatelet agents. ASA Grade Assessment: III - A patient with severe systemic disease. After reviewing the risks and benefits, the patient was deemed in satisfactory condition to undergo the procedure. The anesthesia plan was to use monitored anesthesia care (MAC). Immediately prior to administration of medications, the patient was re-assessed for adequacy to receive sedatives. The heart rate, respiratory rate, oxygen saturations, blood pressure, adequacy of pulmonary ventilation, and response to care were monitored throughout the procedure. The physical status of the patient was re-assessed after the procedure. The Duodenoscope was introduced through the mouth, and advanced to the duodenum and used to inject contrast into the bile duct. The ERCP was accomplished without difficulty. The patient tolerated the procedure well. Findings: The director of industrial relations film was normal. The esophagus was successfully intubated under direct vision without detailed examination of the pharynx, larynx, and associated structures, and upper GI tract. The upper GI tract was grossly normal. The major papilla was on the rim of a diverticulum. The major papilla was flat. 0.035 inch x 260 cm straight Hydra Jagwire was passed into the biliary tree. The bile duct was then deeply cannulated over the guidewire. Contrast was injected. I personally interpreted the bile duct images. Ductal flow of contrast was adequate. Image quality was adequate. Contrast extended to the cystic duct. Contrast extended to the entire biliary tree. Extravasation of contrast originating from the cystic duct was observed. Biliary sphincterotomy was made with a monofilament traction (standard) sphincterotome using ERBE electrocautery. There was no post-sphincterotomy bleeding. One 8.5 Fr by 7 cm plastic stent with a single external flap and a single internal flap was placed into the common bile duct. Bile flowed through the stent. The stent was in good position. Occlusion cholangiogram at the end of the procedure did not show any residual filling defects. Pancreatic duct was neither cannulated nor opacified. Impression: - The major papilla was on the rim of a diverticulum. - The major papilla appeared to be flat. - A bile leak was found. - A biliary sphincterotomy was performed. - One plastic stent was placed into the common bile duct. Recommendation: - Return patient to [facility] for [facility] care. - Patient has a contact number available for emergencies. The signs and symptoms of potential delayed complications were discussed with the patient. Return to normal activities tomorrow. Written discharge instructions were provided to the patient. - NPO today, then advance as tolerated to resume previous diet. - Continue present medications. - Return to this GI lab for stent removal at UGI endoscopy in 6 weeks. - Return to GI clinic in [facility] (address [address], [address], [place], [facility]) in 4 -- 6 weeks. Please call GI clinic @ [phone] for apppointment date and time. - Return to primary care physician. Raffi Beard MD Raffi Beard MD 04/14/2018 3:44:02 PM This report has been signed electronically. Number of Addenda: 0 Note Initiated On: 04/14/2018 2:31 PM Estimated Blood Loss: Estimated blood loss was minimal.
[2018-04-14] MEDS ORDERED: fentaNYL 100 MCG/2 ML INJECTION (J3010) IV PRN (15:45)
[2018-04-14] MEDS ORDERED: LR 1,000 ML IV SCH (15:45)
[2018-04-14] MEDS ORDERED: ONDANSETRON 4MG/2ML VIAL (J2405) IV PRN (15:45)
[2018-04-14] MEDS ORDERED: INDOMETHACIN 50 MG SUPPOSITORY (INDOCIN) As Ordered ONE (15:52)
--- NOTE | 2018-04-14 15:53 | REP ---
Clinical: ERCP. History of biloma. Technique: Intraoperative fluoroscopic images from ERCP examination using portable C-arm technique. Findings: ERCP examination images demonstrate a small ovoid collection with filling defects adjacent to the percutaneous drainage catheter in the region of the gallbladder fossa which appears to fill via the residual cystic duct. This may represent area of extravasation/leakage and requires correlation. The opacified intrahepatic and extrahepatic biliary ducts are normal and without dilatation or obstruction. Total fluoroscopic time 47 seconds. Impression: 1. Ovoid collection with filling defects appears to fill from the visualized residual cystic duct and may represent area of leak related to biloma. Differential diagnosis would include residual gallbladder and correlation with surgical history is recommended. 2. Opacified biliary system without evidence for ductal dilatation, choledocholithiasis or obstruction. Electronically Signed by Julio Duckworth MD 04/14/2018 03:44 P
[2018-04-14] MEDS ORDERED: INDOMETHACIN 50 MG SUPPOSITORY (INDOCIN) PR ONE (16:00)
[2018-04-14] MEDS: KCL 20MEQ IN D5/0.45NS 1000ML 1,000 ML IV SCH ×2 (17:04)
[2018-04-15] VITALS (7 sets, daily range): BP systolic 121–178; BP diastolic 75–97
[2018-04-15] MEDS: KCL 20MEQ IN D5/0.45NS 1000ML 1,000 ML IV SCH (05:10)
[2018-04-15] MEDS: ACETAMINOPHEN TAB 650MG DOSE (2X325MG) PO PRN ×2 (08:22→18:52)
[2018-04-15] MEDS: SENOKOT S TAB PO SCH ×2 (08:22→20:41)
[2018-04-15] MEDS: HumaLOG INSULIN (NovoLOG) PER UNIT SC SCH ×4 (08:24→20:41)
[2018-04-15] MEDS: PANTOPRAZOLE 40MG INJ (PROTONIX) (C9113) IV SCH (08:24)
[2018-04-15] MEDS: LevoFLOXacin IV 500 MG in APPROPRIATE DILUENT 1 EA IV SCH (12:09)
[2018-04-15] MEDS: NORCO, ANEXSIA 5/325MG TABLET (HYDROcodone/ACETAMINOPHEN) PO PRN ×2 (14:54→21:01)
[2018-04-16 02:00] VITALS: BP 143/86
[2018-04-16] MEDS: NORCO, ANEXSIA 5/325MG TABLET (HYDROcodone/ACETAMINOPHEN) PO PRN ×2 (03:03→09:24)
[2018-04-16 06:00] VITALS: BP 158/82
[2018-04-16] MEDS ORDERED: NORCOTAB PO (08:05)
[2018-04-16] MEDS ORDERED: BACT800T5 PO (08:05)
[2018-04-16] MEDS: SENOKOT S TAB PO SCH (08:21)
[2018-04-16] MEDS: PANTOPRAZOLE 40MG INJ (PROTONIX) (C9113) IV SCH (08:21)
[2018-04-16] MEDS: HumaLOG INSULIN (NovoLOG) PER UNIT SC SCH (08:23)
--- NOTE | 2018-04-16 16:24 | DSES ---
DATE OF ADMISSION: 04/09/2018 DATE OF DISCHARGE: 04/16/2018 ADMISSION DIAGNOSIS: Postoperative bile leak. DISCHARGE DIAGNOSIS: Cystic duct stump leak status post laparoscopic cholecystectomy. HOSPITAL COURSE: The patient is a 58-year-old male who presented to the emergency room on April 09 with shortness of breath and some right upper quadrant abdominal pain. Labs were essentially normal. CT scan did show some slight fluid surrounding the gallbladder fossa and the liver edge. No other signs of distant fluid. His white count was also slightly elevated. He was admitted for this by Dr. Yoo, and a hepatobiliary iminodiacetic acid (HIDA) scan was ordered. Initial HIDA scan returned that there were no signs of any bile leak; however, I have also had interventional radiology place a drain that Saturday, and it showed slightly bile-tinged fluid that continued to progress over the next few days. Since it was not improving, the plan was to do an endoscopic retrograde cholangiopancreatography (ERCP), and ERCP confirmed that there was a cystic duct stump leak. Dr. Beard was able to place a stent across the cystic duct, and since then his drainage output has improved significantly. His right upper quadrant abdominal pain has improved, and his breathing is much improved. His labs since then have all returned back to normal. White count was back down to 11.5 prior to discharge. He has no fevers. He is off of nasal cannula. Denies any chest pain, shortness of breath. He is urinating and having bowel movements appropriately, tolerating a diet. He is up able ambulating around the room without any significant pains. He does have some mild pain in the right upper quadrant still, but that is likely just from the drain site itself. At this point, his drainage has decreased significantly since having the stent placed; however, there is still a small amount of bile in the drain. Plan is to discharge him home today, keep the drain in place for another week, and followup me in the office next Saturday. If the drain has turned to serosanguineous, then we will remove it in the office. If it is still bilious, then we will repeat a HIDA scan. The other alternative is if the bile output increases significantly or he starts to develop fevers or pain again, I asked him to call me immediately, and we will make further arrangements at that time. All of his questions are answered. I sent him home with some Bactrim that is susceptible to the Escherichia (E) coli that was found in his bile fluid. I also sent him home with some more [place]. All of his questions were answered, and he will be discharged home today.
== END 2018-04-16 11:12 | disposition home or self-care (01) | DRG 395 ==
LOC: M ED 19:45 → M ED INP 23:30 → M PCU 04-10 00:57 → M MSPAV 04-15 11:26
PROVIDERS: ADMIT Surgery; ATTEND Surgery
PROC: 0F9430Z Drainage of Gallbladder with Drainage Device, Percutaneous Approach (ICD-10-PCS; 2018-04-10)
PROC: 0F798DZ Dilation of Common Bile Duct with Intraluminal Device, Via Natural or Artificial Opening Endoscopic (ICD-10-PCS; principal; 2018-04-14 14:00)
DX: K91.89 Other postprocedural complications and disorders of digestive system (principal); G47.33 Obstructive sleep apnea (adult) (pediatric); E78.00 Pure hypercholesterolemia, unspecified; K21.9 Gastro-esophageal reflux disease without esophagitis; E11.9 Type 2 diabetes mellitus without complications; Z87.442 Personal history of urinary calculi; M10.9 Gout, unspecified; Z79.84 Long term (current) use of oral hypoglycemic drugs; Z79.82 Long term (current) use of aspirin; Z79.899 Other long term (current) drug therapy; Z88.8 Allergy status to other drugs, medicaments and biological substances; Z90.49 Acquired absence of other specified parts of digestive tract; K59.09 Other constipation; Y83.6 Removal of other organ (partial) (total) as the cause of abnormal reaction of the patient, or of later complication, without mention of misadventure at the time of the procedure; B96.20 Unspecified Escherichia coli [E. coli] as the cause of diseases classified elsewhere

== ENCOUNTER 2018-05-26 12:32 | Day surgery (SDC) | payer OTHER ==
[~2018-05-26] VITALS: Ht 182.9 cm; Wt 104.8 kg
[~2018-05-26 12:32] MED LIST changes: -/ONDA4TA OR; -/TAMS4CA OR; +ASPI81TAEC PO; +BACT800T5 PO; +DICL1GEL3 TOP; +FLOM0.4C39 OR; +HYDR-3715 PO; +HYDR-4571 PO; -NORC1TAB4 PO; +NORC1TAB7 PO; -NORCOTAB PO; +NS 1,000 ML IV ONE; +ONDA-1 OR
[2018-05-26] MEDS ORDERED: LIDOCAINE 2% INJ 100 MG/5 ML SDV (FOR ANES.) As Ordered ONE (15:41)
[2018-05-26] MEDS ORDERED: PROPOFOL 200 MG/20 ML VIAL As Ordered ONE (15:41)
[2018-05-26] MEDS ORDERED: fentaNYL 100 MCG/2 ML INJECTION (J3010) As Ordered ONE (15:44)
--- NOTE | 2018-05-26 16:10 | ROOR ---
Patient Name: Massimo Ibanez Procedure Date: 05/26/2018 2:53 PM Date of : 1960 Age: 58 Room: [facility] Gender: Male Note Status: Finalized Procedure: Upper GI endoscopy Indications: Biliary stent removal Providers: Meir CURTIS MD Referring MD: Seferino GARCIA MD Requesting Provider: Medicines: Monitored Anesthesia Care Complications: No immediate complications. Procedure: Pre-Anesthesia Assessment: - The heart rate, respiratory rate, oxygen saturations, blood pressure, adequacy of pulmonary ventilation, and response to care were monitored throughout the procedure. The Endoscope was introduced through the mouth, and advanced to the second part of duodenum. The upper GI endoscopy was accomplished without difficulty. The patient tolerated the procedure well. Findings: A previously placed plastic biliary stent was seen in the area of the papilla. Stent removal was accomplished with a snare. Verification of patient identification for the specimen was done. The esophagus was normal. The stomach was normal. The examined duodenum was normal. Impression: - Plastic biliary stent in the duodenum. Removed. - Normal esophagus. - Normal stomach. - Normal examined duodenum. Recommendation: - Observe patient's clinical course. - I anticipate no further need for intervention. Meir Curtis MD Meir CURTIS MD 05/26/2018 4:09:55 PM Electronically signed by Meir CURTIS MD Number of Addenda: 0 Note Initiated On: 05/26/2018 2:53 PM Estimated Blood Loss: Estimated blood loss: none.
[2018-05-26 16:32] VITALS: BP 129/90
== END 2018-05-26 16:35 | disposition home or self-care (01) ==
LOC: M OPP 12:32
PROVIDERS: ATTEND Internal Medicine Gastroenterology
DX: Z46.59 Encounter for fitting and adjustment of other gastrointestinal appliance and device (principal)
CPT/HCPCS: 43247; J3010

== ENCOUNTER → 2018-08-07 | Outpatient (REF) | payer OTHER ==
[~2018-08-07] MED LIST changes: -NS 1,000 ML IV ONE; -TRAZ-160 PO; +TRAZ-252 PO; +TRAZ1TAB10 PO; -TRAZO50TA PO
[2018-08-07 12:37] LABS: ALBUMIN 3.7 GM/DL (3.2-5.2); ALT/SGPT 28 U/L (12-78); BILIRUBIN,TOTAL 0.6 MG/DL (0.2-1.0); BLOOD UREA NITROGEN 18 MG/DL (7-18); CALCIUM LEVEL 8.8 MG/DL (8.5-10.1); CARBON DIOXIDE LEVEL 29 MEQ/L (21-32); CHLORIDE LEVEL 107 MEQ/L (98-107); CHOLESTEROL LEVEL 167 MG/DL (<200); CHOLESTEROL RISK RATIO 4.073 (<5); CREATININE FOR GFR 1.19 MG/DL (0.70-1.30); GLOMERULAR FILTRATION RATE > 60.0 (>56); GLUCOSE, FASTING 193 MG/DL (70-100); HDL CHOLESTEROL 41 MG/DL (>40); LDL CHOLESTEROL 84 MG/DL (<100); NON-HDL-C 126 MG/DL; POTASSIUM SERUM 4.5 MEQ/L (3.5-5.1); SODIUM LEVEL 141 MEQ/L (136-145); TOTAL PROTEIN 6.9 GM/DL (6.4-8.2); TRIGLYCERIDES LEVEL 211 MG/DL (<150)
[2018-08-07 13:18] LABS: HEMOGLOBIN A1c 7.3 %
== END ==
LOC: M SFHCLERA 08:02
PROVIDERS: ATTEND Family Medicine
DX: E11.9 Type 2 diabetes mellitus without complications (principal)

== ENCOUNTER 2019-04-11 17:27 | Emergency (ER) | payer OTHER ==
[~2019-04-11] VITALS: Ht 185.4 cm; Wt 118.6 kg
[~2019-04-11 17:27] MED LIST changes: +RANI-397 PO; -RANI1TAB6 PO
[2019-04-11] MEDS ORDERED: ONDANSETRON 4MG/2ML VIAL (J2405) IV ONE (18:15)
[2019-04-11] MEDS ORDERED: NS 1,000 ML IV ONE (18:15)
[2019-04-11] MEDS ORDERED: KETOROLAC 30 MG/ML VIAL (J1885) IV ONE (18:15)
[2019-04-11 18:23] LABS: BASO % 0.3 % (0.0-1.0); EOS # 0.1 10^3/uL (0.0-0.5); EOS % 0.9 % (0.0-3.0); HEMATOCRIT 38.2 % (42.0-52.0); LYMPH # 1.1 10^3/uL (1.5-5.0); LYMPH % 10.6 % (24.0-44.0); MEAN CORPUSCULAR HEMOGLOBIN 31.3 pg (27.0-33.0); MEAN CORPUSCULAR VOLUME 91.8 fl (80.0-96.0); MONO % 9.7 % (0.0-5.0); NEUTROPHILS # 8.3 10^3/uL (1.5-8.5); NEUTROPHILS % 77.8 % (36.0-66.0); PLATELET COUNT, AUTOMATED 199 10^3/uL (150-450); RED BLOOD COUNT 4.16 10^6/uL (4.30-6.10); WHITE BLOOD COUNT 10.7 10^3/uL (4.0-10.0)
[2019-04-11 18:54] LABS: ALBUMIN 3.5 GM/DL (3.2-5.2); BILIRUBIN,DIRECT 0.2 MG/DL (0.0-0.2); BILIRUBIN,TOTAL 0.6 MG/DL (0.2-1.0); TOTAL PROTEIN 6.8 GM/DL (6.4-8.2)
--- NOTE | 2019-04-11 19:11 | REPVR ---
PROCEDURE INFORMATION: Exam: CT Abdomen And Pelvis Without Contrast Exam date and time: 04/11/2019 6:19 PM Age: 59 years old Clinical indication: Abdominal pain; Flank; Right; Additional info: Right flank pain TECHNIQUE: Imaging protocol: Computed tomography of the abdomen and pelvis without contrast. Radiation optimization: All CT scans at this facility use at least one of these dose optimization techniques: automated exposure control; mA and/or kV adjustment per patient size (includes targeted exams where dose is matched to clinical indication); or iterative reconstruction. COMPARISON: CT ABD PELVIS W/O CONTRAST 04/09/2018 10:25 PM FINDINGS: Limited evaluation without enteric or IV contrast. Lungs: Atelectatic change is present in the right lung base. Liver: Liver is enlarged and decreased in density suggesting hepatic steatosis. Gallbladder and bile ducts: Gallbladder is surgically absent. Pancreas: Noncontrast pancreas shows no obvious mass or adjacent fluid. Spleen: Noncontrast spleen shows no obvious focal deformity. Adrenals: Adrenal glands are normal in appearance. Kidneys and ureters: Left kidney demonstrates no stone or obstruction. Right kidney demonstrates mild perinephric stranding and hydroureteronephrosis, secondary to a 5 x 4 mm distal right ureter stone just proximal to the right UVJ. Stomach and bowel: No evidence of small bowel obstruction. No evidence of acute diverticulitis. Appendix: Normal caliber appendix is identified, with no adjacent inflammation. Intraperitoneal space: No pneumoperitoneum. No evidence of a mesenteric mass. Vasculature: Atherosclerotic change present in the aorta, without aneurysm. Lymph nodes: No enlarged lymph nodes. Bladder: Urinary bladder appears normal. Bones/joints: Bony structures show no acute fracture or destructive process. Soft tissues: Bilateral fat-containing inguinal hernias are present. Other findings: Limited evaluation without enteric or IV contrast. IMPRESSION: 1. Mild right hydroureteronephrosis secondary to a 5 x 4 mm distal right ureter stone just proximal to the right UVJ. 2. Hepatomegaly and hepatic steatosis Electronically signed by: Zak Barragan On 04/11/2019 19:11:31 PM
[2019-04-11] MEDS ORDERED: NORC1TAB7 PO (20:02)
[2019-04-11] MEDS ORDERED: ONDA4TAB6 PO (20:02)
[2019-04-11] MEDS ORDERED: FLOM0.4C39 PO (20:02)
[2019-04-11 20:07] VITALS: BP 131/78
--- NOTE | 2019-04-13 09:35 | ED PDOC ---
Post-Departure Follow-Up dr villasenor faxed formal report of ct abd/p for fu Panchito Marin MD Apr 13, 2019 09:35
== END 2019-04-11 20:32 | disposition home or self-care (01) ==
LOC: M ED 17:27
DX: N13.2 Hydronephrosis with renal and ureteral calculous obstruction (principal); I10 Essential (primary) hypertension; E11.9 Type 2 diabetes mellitus without complications; E78.00 Pure hypercholesterolemia, unspecified; G47.30 Sleep apnea, unspecified; K21.9 Gastro-esophageal reflux disease without esophagitis; Z79.899 Other long term (current) drug therapy; Z79.84 Long term (current) use of oral hypoglycemic drugs; Z79.82 Long term (current) use of aspirin; Z88.8 Allergy status to other drugs, medicaments and biological substances; Z87.442 Personal history of urinary calculi; Z87.448 Personal history of other diseases of urinary system; Z98.890 Other specified postprocedural states
CPT/HCPCS: 74176; 80047; 80076; 81001; 82365; 83690; 85025; 88300; 96374; 96375; 99284; J1885; J2405

== ENCOUNTER → 2019-04-24 | Outpatient (REF) | payer OTHER ==
[~2019-04-24] MED LIST changes: +ONDA4TAB6 PO
== END ==
LOC: M SMT 13:07
PROVIDERS: ATTEND Nurse Practitioner Women's Health
DX: N20.0 Calculus of kidney (principal)

== ENCOUNTER → 2019-07-01 | Outpatient (REF) | payer OTHER ==
[2019-07-01 12:01] LABS: HEMOGLOBIN A1c 7.8 %
[2019-07-01 12:35] LABS: CHOLESTEROL LEVEL 147 MG/DL (<200); CHOLESTEROL RISK RATIO 3.972 (<5); FERRITIN 72 NG/ML (26-388); HDL CHOLESTEROL 37 MG/DL (>40); HEPATITIS B SURFACE ANTIGEN NEGATIVE (NEGATIVE); IRON (FE) 61 UG/DL (65-175); LDL CHOLESTEROL 56 MG/DL (<100); NON-HDL-C 110 MG/DL; PERCENT SATURATION 18.7 % (19.7-50.0); TOTAL IRON BINDING CAPACITY 327 UG/DL (250-450); TRIGLYCERIDES LEVEL 269 MG/DL (<150)
[2019-07-01 12:36] LABS: MALB URINE SIEMENS 26.7 MG/L; MAU/CREAT RATIO 15.7 MCG/MG (0.0-30.0)
[2019-07-01 12:44] LABS: HEPATITIS B CORE ANTIBODY IGM NEGATIVE (NEGATIVE); HEPATITIS C VIRUS ABY INDEX 0.1 INDEX (<0.8)
[2019-07-01 12:46] LABS: HEPATITIS A ANTIBODY IGM NEGATIVE (NEGATIVE)
[2019-07-03 00:10] LABS: ANA (HEP2) Negative (.); ANTI-SMOOTH MUSCLE ANTIBODY 6 Units (0-19); LIVER-KIDNEY MICROSOMAL ABY <20.1 Units (0.0-20.0)
== END ==
LOC: M SFHCLERA 09:03
PROVIDERS: ATTEND Family Medicine
DX: K76.0 Fatty (change of) liver, not elsewhere classified (principal); E11.9 Type 2 diabetes mellitus without complications; E78.5 Hyperlipidemia, unspecified

== ENCOUNTER → 2020-01-18 | Outpatient (CLI) | payer OTHER ==
[2020-01-18 12:21] LABS: BASO % 0.4 % (0.0-1.0); EOS # 0.1 10^3/uL (0.0-0.5); EOS % 1.1 % (0.0-3.0); HEMATOCRIT 40.8 % (42.0-52.0); HEMOGLOBIN 13.4 g/dl (13.5-17.5); LYMPH # 1.1 10^3/uL (1.5-5.0); LYMPH % 15.3 % (24.0-44.0); MEAN CORPUSCULAR HEMOGLOBIN 30.7 pg (27.0-33.0); MEAN CORPUSCULAR HGB CONC 32.8 g/dl (32.0-36.5); MEAN CORPUSCULAR VOLUME 93.4 fl (80.0-96.0); MONO # 0.6 10^3/uL (0.0-0.8); MONO % 8.8 % (0.0-5.0); NEUTROPHILS # 5.2 10^3/uL (1.5-8.5); NEUTROPHILS % 73.3 % (36.0-66.0); PLATELET COUNT, AUTOMATED 162 10^3/uL (150-450); RED BLOOD COUNT 4.37 10^6/uL (4.30-6.10); WHITE BLOOD COUNT 7.1 10^3/uL (4.0-10.0)
[2020-01-18 12:37] LABS: ALBUMIN 3.9 GM/DL (3.2-5.2); BILIRUBIN,TOTAL 0.6 MG/DL (0.2-1.0); CHOLESTEROL RISK RATIO 4.837 (<5); CREATININE FOR GFR 1.35 MG/DL (0.70-1.30); GLOMERULAR FILTRATION RATE 57.8 (>56); POTASSIUM SERUM 4.5 MEQ/L (3.5-5.1); TOTAL PROTEIN 6.7 GM/DL (6.4-8.2)
[2020-01-18 13:27] LABS: HEMOGLOBIN A1c 10.1 %
== END ==
LOC: M WUC 09:52
PROVIDERS: ATTEND Family Medicine
DX: E11.9 Type 2 diabetes mellitus without complications (principal); K76.0 Fatty (change of) liver, not elsewhere classified

== ENCOUNTER → 2020-02-23 | Outpatient (REF) | payer OTHER | LOC: M LAB 21:52 | PROVIDERS: ATTEND Physician Assistant Medical | DX: R50.9 Fever, unspecified (principal) ==

== ENCOUNTER → 2020-07-08 | Outpatient (CLI) | payer OTHER ==
[~2020-07-08] MED LIST changes: +ASPI-569 PO; -ASPI81TAEC PO; -GLYB5TA PO; +GLYB5TAB6 PO; -LISI-542 PO; +LISI-898 PO
[2020-07-08 10:23] LABS: HEMOGLOBIN A1c 7.6 %
[2020-07-08 10:36] LABS: BLOOD UREA NITROGEN 14 MG/DL (7-18); CALCIUM LEVEL 8.9 MG/DL (8.5-10.1); CARBON DIOXIDE LEVEL 27 MEQ/L (21-32); CHLORIDE LEVEL 110 MEQ/L (98-107); CREATININE FOR GFR 1.25 MG/DL (0.70-1.30); GLOMERULAR FILTRATION RATE > 60.0 (>56); GLUCOSE, FASTING 175 MG/DL (70-100); POTASSIUM SERUM 4.7 MEQ/L (3.5-5.1); SODIUM LEVEL 141 MEQ/L (136-145)
[2020-07-08 10:46] LABS: MALB URINE SIEMENS 35.4 MG/L; MAU/CREAT RATIO 18.4 MCG/MG (0.0-30.0)
== END ==
LOC: M WUC 08:05
PROVIDERS: ATTEND Family Medicine
DX: E11.9 Type 2 diabetes mellitus without complications (principal)

== ENCOUNTER 2021-01-09 01:01 | Emergency (ER) | payer OTHER ==
[~2021-01-09] VITALS: Ht 182.9 cm; Wt 117.1 kg
--- OUTSIDE RECORDS SUMMARY | 2021-01-09 01:09 | CCD ---
Author Author [facility] Organization [facility] Address Unknown Phone Unavailable Care Team Providers Care Educational Psychology Professor Name Role Phone David Reyes Unavailable PROBLEMS Type Condition ICD9-CM Code NAI03-RM Code Onset Dates Condition S tatus W/U Status Risk SNOMED Code Notes Problem Psoriasis L40.9 Active confirmed 3454868 Problem Partial hearing loss, bilateral H91.93 Active confi rmed 462375547 Problem Essential (primary) hypertension I10 Active conf irmed 50510786 Problem Psychophysiological insomnia F51.04 Active confirme d 247762381 Problem Gout of left foot, unspecified cause, unspecified chronici ty M10.9 Active confirmed 372706778 Problem Mixed hyperlipidemia E78.2 Active confirmed 129390551 Problem Type 2 diabetes mellitus wit hout complication, without long-term current use of insulin E11.9 Active confirmed 453469172 Problem Ureteral stone N20.1 Active confirmed 09523 009 Problem UTI (urinary tract infection) N39.0 Active confirm ed 41172896 Problem Memory impairment R41.3 Active confirmed 38 5355218 Problem Heartburn R12 Active confirmed 64492884 Problem Carpal tunnel syndrome of left wrist G56.02 Act randy confirmed 36204620 Problem Obesity, Class II, BMI 35-39.9 E66.9 Active c onfirmed [id number] Problem Fatty liver K76.0 Active confirmed 17077934 7 Problem Mild cognitive impairment G31.84 Active confirmed 472350938 Problem Erectile dysfunction, unspecified erectile dysfunction typ e N52.9 Active confirmed 322163641 Problem LUBA (obstructive sleep apnea) G47.33 Active confirm ed 37436208 ALLERGIES Allergen (clinical drug ingredient) Drug/Non Drug Allergy do cumented on EMR Reaction Allergy Type Onset Date Status dicyclomine Dicyclomine HCl([facility] Code:[address]-31) lightheadedness, bloating, cramps, loss of appetite, belching Drug Allergy Activ e ENCOUNTERS from 1960 to 2020-10-27 [facility]counter [facility] [address] [facility] [phone] [place] [address] Oct, 2020 David Reyes IMMUNIZATIONS Vaccine Route Administration Date Status Pfizer #1 dose COVID-19(given elsewhere) SARSCOV2 VAC 30MCG/0.3ML IM IM Intramuscular April 20, 2020 Administered Pfizer #2 dose COVID-19(given elsewhere) SARSCOV2 VAC 30MCG/0.3ML IM IM Intramuscular May 11, 2020 Administered Influenza 18 yrs & older Flublok IM Intramuscular Mar 20, 2018 Administered Pneumococcal Adult 0.5mL Pneumovax 23 IM Intramuscular Mar 20 019 Administered TDAP 0.5mL (Boostrix) IM Intramuscular August 07, 2018 Administe red Influenza 6mo & up Fluzone Unknown June 05, 2017 Other s Influenza 6mo & up Fluzone Unknown Feb 10, 2016 Refus ed Influenza 6mo & up Fluzone Unknown Mar 10, 2015 Refus ed Influenza 6mo & up Fluzone IM Intramuscular Jan 06, 2014 Admi nistered SOCIAL HISTORY Tobacco Use: Social History Observation Description Date Details (start date - stop date) Never Smoker Sex Assigned At : Social History Observation Description Sex Assigned At Unknown Education: Question Answer Notes Level of Education: College Audit Question Answer Notes Total Score: 0 Interpretation: Alcohol Education Language: Question Answer Notes Languages spoken: Thai Sabianist: Question Answer Notes Sabianist 03 Denominational Drug and Alcohol Question Answer Notes Total Score: 0 Interpretation: No problems reported BMI Care Goal Follow-Up Question Answer Notes Above Normal BMI Follow-Up Dietary management educatio n, guidance, and counseling Tobacco Use: Question Answer Notes Are you a: never smoker REASON FOR REFERRAL No Information VITAL SIGNS No information MEDICATIONS Medication SIG (Take, Route, Frequency, Duration) Notes Start Da te End Date Status Apple Cider Vinegar 500 MG as directed Orally Active Fluocinonide 0.05 % 1 application Externally bid to affected areas both legs and left gnosticist as needed for 30 days Active Crestor 20 MG 1 tablet Orally Once a day for 90 days 2020 Active Wrist Brace - as directed topically Daily for 999 days Dx: G56 .02 left wrist Aug, Active traZODone HCl 50 MG 1 tablet at bedtime as neede d Orally As needed for 30 day(s) Nov, Not-Taking Sildenafil Citrate 50 MG 1 tablet as needed Orally Once a day for 30 days Active Centrum Active Trulicity 1.5 MG/0.5ML as directed Subcutaneous weekly for 90 da ys Jul, Active Vitamin E 180mg Active Aspirin 81 MG 1 tablet Orally Once a day Active Lisinopril 5 MG 1 tablet Orally Once a day Active Diclofenac Sodium 1 % 4g to affected area of shoul sb Transdermal every 6 hrs prn for 13 Active glyBURIDE 5 MG TAKE 1/2 (ONE-HALF) TABLET B Y MOUTH TWICE DAILY PRIOR TO BREAKFAST AND DINNER Orally BID Active Allopurinol 100MG 1 tablet Orally Once a day for 90 days Active Januvia 100 MG 1 tablet Orally Once a day for 90 days Active metFORMIN HCl 500 MG 1 tablet with a meal Orally bid for 90 days Active Elbow Brace - as directed topically Daily for 999 days Dx: M77 1.0 left elbow Aug, Active PROCEDURES No Information RESULTS No Results REASON FOR VISIT Allopurinol refill MEDICAL (GENERAL) HISTORY Type Description Date Medical History Nephrolithiasis(spontanous passage 15 ye ars ago) Medical History Type 2 diabetes mellitus without complic ation Medical History Mixed hyperlipidemia Medical History Psychophysiological insomnia Medical History Essential (primary) hypertension Medical History Umbilical hernia without obstruction and without gangrene Medical History Memory impairment Medical History Squamous cell carcinoma of skin Medical History Rectal polyp Medical History Benign prostatic hyperplasia without lower urinary tract symptoms, unspecified morphology Medical History Gout of left foot, unspecified cause, un specified chronicity Medical History Other fatigue Medical History Partial hearing loss, bilateral Medical History Rosacea, acne Medical History Seasonal allergic rhinitis, unspecified allergic rhinitis trigger Medical History Eczema, unspecified type Medical History LUBA Medical History covid vaccine, pfizer Surgical History Tonsillectomy Surgical History Knee surg, left Surgical History vasectomy Surgical History hernia surgery 03/2015 Surgical History endoscopy & colonoscopy 04/2016 Surgical History gallbladder removed, bile duct leak & re paired 03/2018 Hospitalization History surgicaly related Goals Section No Information Health Concerns No Information MEDICAL EQUIPMENT No Information MENTAL STATUS No Information FUNCTIONAL STATUS No Information ASSESSMENTS No Information PLAN OF TREATMENT Medication Medication Name Sig Start Date Stop Date Trulicity 1.5 MG/0.5ML as directed Subcutaneous weekly for 90 da ys Jul, Januvia 100 MG 1 tablet Orally Once a day for 90 days Allopurinol 100MG 1 tablet Orally Once a day for 90 days Sildenafil Citrate 50 MG 1 tablet as needed Orally Once a day fo r 30 days Wrist Brace - as directed topically Daily for 999 days Aug, Elbow Brace - as directed topically Daily for 999 days Aug, Insurance Providers Payer Name Payer Address Payer Phone Insured Name Patient Relati onship to Insured Coverage Start Date Coverage End Date [facility] [id number] [facility] [phone] SOLEDAD MORALES [id number]
--- OUTSIDE RECORDS SUMMARY | 2021-01-09 01:09 | CCD | Continuity of Care Document ---
Author Author [facility] Organization Unknown Address [address] [place] [address] Phone [phone] Care Team Providers Care Tool Technician Name Role Phone David Reyes M.D. AUTM [phone] Problems Description No Information Available Social History Type Date Description Comments Sex Unknown Allergies and adverse reactions Description No Information Available Medications Active Medications SIG Qnty Indications Ordering Provide r Date Neurontin 100mg Capsules 1 by mouth three times a day saeid Maher M.D. 10/13/2020 Immunizations Description No Information Available Vital Signs Description No Information Available Results Description No Information Available Procedures Date Code Description Status 12/16/2020 10224 Office/Outpatient Established Mo d MDM 30-39 Min Completed 10/13/2020 53368 Nerve Conduction 9-10 Studies Co mpleted 10/13/2020 64538 Needle Electromyogra phy Non Extremity Done With Nerve Conduction Completed 10/13/2020 92803 Needle Electromyography Complete , Five Or More Muscles Studied Completed 09/30/2020 30750 Sympathetic Skin Responses Compl eted 09/30/2020 73051 Test Autonomic Nervous System, C ardiovagal Innervation Completed 09/30/2020 54249 Artery Study Extremity Mult Leve ls Bilateral Completed 09/30/2020 28933 Artery Study Extremity Mult Leve ls Bilateral Completed 09/29/2020 51787 Office/Outpatient Established Mo d MDM 30-39 Min Completed 08/27/2020 64406 MRI Spine Lumbar W/O Contrast Co mpleted 08/27/2020 75935 MRI Brain W/O Contrast Completed 08/27/2020 31976 MRI Brain W/O Contrast Completed 08/27/2020 54705 MRI Brain W/O Contrast Completed 08/27/2020 74648 MRI Spine Lumbar W/O Contrast Co mpleted 08/27/2020 24784 MRI Spine Lumbar W/O Contrast Co mpleted 08/23/2020 30459 Nerve Conduction 13+ Studies Com pleted 08/23/2020 51690 Needle Electromyography Complete , Five Or More Muscles Studied Completed 08/23/2020 63420 Needle Electromyography Complete , Five Or More Muscles Studied Completed 08/17/2020 13734 EEG Recording Awake & Asleep Com pleted 08/17/2020 14204 EEG Recording Awake & Asleep Com pleted 08/15/2020 34718 Office/Outpatient New Moderate M DM 45-59 Minutes Completed Medical Devices Description No Information Available Encounters Type Date Location Provider Dx Diagnosis Office Visit 12/16/2020 8:30a [place] M.[place]. G56.03 Carpal tunnel syndrome, bilateral upper limbs E11.40 Type 2 diabetes mellitus wit h diabetic neuropathy, unsp R25.8 Other abnormal involuntary m ovements M47.897 Other spondylosis, lumbosacr al region R41.3 Other amnesia M54.2 Cervicalgia M54.12 Radiculopathy, cervical le on M25.519 Pain in unspecified shoulder G56.21 Lesion of ulnar nerve, right upper limb Office Visit 09/29/2020 9:45a Main office - [place] M.[place]. M79.602 Pain in left arm G47.51 Confusional arousals E11.40 Type 2 diabetes mellitus wit h diabetic neuropathy, unsp M47.897 Other spondylosis, lumbosacr al region R41.3 Other amnesia M54.2 Cervicalgia R20.2 Paresthesia of skin R26.9 Unspecified abnormalities of gait and mobility Office Visit 08/15/2020 2:30p Main office - [place] M.[place]. R25.8 Other abnormal involuntary movements M54.5 Low back pain R41.3 Other amnesia M62.9 Disorder of muscle, unspecif ied Assessments Date Code Description Provider 12/16/2020 G56.03 Carpal tunnel syndrome, bilatera l upper limbs Aria Maher M.D. 12/16/2020 E11.40 Type 2 diabetes bob itus with diabetic neuropathy, unspecified Aria Gunnar, M.DJohny 12/16/2020 R25.8 Other abnormal involuntary movem ents Aria Gunnar, M.DJohny 12/16/2020 M47.897 Other spondylosis, lumbosacral r egion Aria Gunnar, M.D. 12/16/2020 R41.3 Other amnesia Aria Gunnar, M. D. 12/16/2020 M54.2 Cervicalgia Aria Gunnar, M. D. 12/16/2020 M54.12 Radiculopathy, cervical region S undus Gunnar, M.D. 12/16/2020 M25.519 Pain in unspecified shoulder Sun dus Gunnar, M.DJohny 12/16/2020 G56.21 Lesion of ulnar nerve, right upp er limb Aria Gunnar, M.DJohny 10/13/2020 G56.02 Carpal tunnel syndrome, left upp er limb Elizabeth Gunnar, M.DJohny 10/13/2020 G56.00 Carpal tunnel syndrome, unspecif ied upper limb Elizabeth Gunnar, M.DJohny 10/13/2020 M54.12 Radiculopathy, cervical region A bdul Gunnar, M.DJohny 10/13/2020 M54.2 Cervicalgia Elizabeth Gunnar, M.D . 10/13/2020 R20.2 Paresthesia of skin Elizabeth Gunnar, M.D. 09/30/2020 G60.8 Other hereditary and idiopathic neuropathies Aria Gunnar, M.DJohny 09/30/2020 G60.8 Other hereditary and idiopathic neuropathies Ans/VS 09/30/2020 I70.228 Atherosclerosis of n ative arteries of extremities with rest pain, other extremity Aria Gunnar, M.DJohny 09/30/2020 I70.228 Atherosclerosis of n ative arteries of extremities with rest pain, other extremity Ans/VS 09/29/2020 M79.602 Pain in left arm Aria Gunnar M .DJohny 09/29/2020 G47.51 Confusional arousals Aria middleton M.D. 09/29/2020 E11.40 Type 2 diabetes bob itus with diabetic neuropathy, unspecified Aria Gunnar, M.D. 09/29/2020 M47.897 Other spondylosis, lumbosacral r egion Aria Gunnar, M.D. 09/29/2020 R41.3 Other amnesia Aria Gunnar, M. D. 09/29/2020 M54.2 Cervicalgia Aria Gunnar, M. D. 09/29/2020 R20.2 Paresthesia of skin Aria Gunnar , M.D. 09/29/2020 R26.9 Unspecified abnormalities of gai t and mobility Aria Gunnar, M.D. 08/27/2020 M54.5 Low back pain Mahamed Loving MD 08/27/2020 M54.5 Low back pain Elizabeth Gunnar, M.D . 08/27/2020 M54.5 Low back pain MRI 08/27/2020 M54.16 Radiculopathy, lumbar region Juve Loving MD 08/27/2020 M54.16 Radiculopathy, lumbar region Abd ul Gunnar, M.D. 08/27/2020 M54.16 Radiculopathy, lumbar region MRI 08/27/2020 G25.0 Essential tremor Mahamed Loving MD 08/27/2020 G25.0 Essential tremor Elizabeth Gunnar, M. D. 08/27/2020 G25.0 Essential tremor MRI 08/27/2020 R41.3 Other amnesia Mahamed Loving MD 08/27/2020 R41.3 Other amnesia Elizabeth Gunanr, M.D . 08/27/2020 R41.3 Other amnesia MRI 08/23/2020 M79.606 Pain in leg, unspecified Elizabeth L hebert, M.D. 08/23/2020 M54.5 Low back pain Elizabeth Gunnar, M.D . 08/23/2020 M54.16 Radiculopathy, lumbar region Abd ul Gunnar, M.D. 08/23/2020 R20.2 Paresthesia of skin Elizabeth Gunnar, M.D. 08/23/2020 G60.9 Hereditary and idiopathic neurop athy, unspecified Elizabeth Gunnar, M.D. 08/23/2020 M79.604 Pain in right leg Elizabeth Gunnar, M .DJohny 08/23/2020 M79.605 Pain in left leg Elizabeth Gunnar, M. D. 08/17/2020 G25.0 Essential tremor Aria Gunnar, M .DJohny 08/17/2020 G25.0 Essential tremor EEG 08/17/2020 R41.3 Other amnesia Aria Maher M. DJohny 08/17/2020 R41.3 Other amnesia EEG 08/15/2020 R25.8 Other abnormal involuntary movem ents Sergio MeierDJohny 08/15/2020 M54.5 Low back pain Sergio Meier DJohny 08/15/2020 R41.3 Other amnesia Sergio Meier 08/15/2020 M62.9 Disorder of muscle, unspecified Aria Maher M.D. Plan of Treatment Future Appointment(s):* 03/21/2021 8:30 am - Aria Maher M.D. at Main office [facility] Functional Status Description No Information Available Mental Status Description No Information Available Referrals Refer to Reason for Referral Status Appt Date Created
--- OUTSIDE RECORDS SUMMARY | 2021-01-09 01:09 | CCD | Continuity of Care Document ---
Author Massimo Long M.D. Organization Unknown Address [address] [place] [address] Phone [phone] Care Team Providers Care Insulation Board Calender Operator Name Role Phone David Reyes M.D. AUTM [phone] Problems Description No Information Available Social History Type Date Description Comments Sex Unknown Allergies and adverse reactions Description No Information Available Medications Active Medications SIG Qnty Indications Ordering Provide r Date Neurontin 100mg Capsules 1 by mouth three times a day 90caps Elizabeth Maher M.D. 10/13/2020 Immunizations Description No Information Available Vital Signs Description No Information Available Results Description No Information Available Procedures Date Code Description Status 12/16/2020 85653 Office/Outpatient Established Mo d MDM 30-39 Min Completed 10/13/2020 94951 Nerve Conduction 9-10 Studies Co mpleted 10/13/2020 41694 Needle Electromyogra phy Non Extremity Done With Nerve Conduction Completed 10/13/2020 36047 Needle Electromyography Complete , Five Or More Muscles Studied Completed 09/30/2020 60240 Sympathetic Skin Responses Compl eted 09/30/2020 27164 Test Autonomic Nervous System, C ardiovagal Innervation Completed 09/30/2020 12609 Artery Study Extremity Mult Leve ls Bilateral Completed 09/30/2020 11972 Artery Study Extremity Mult Leve ls Bilateral Completed 09/29/2020 55831 Office/Outpatient Established Mo d MDM 30-39 Min Completed 08/27/2020 91397 MRI Spine Lumbar W/O Contrast Co mpleted 08/27/2020 22798 MRI Brain W/O Contrast Completed 08/27/2020 72279 MRI Brain W/O Contrast Completed 08/27/2020 68284 MRI Brain W/O Contrast Completed 08/27/2020 55621 MRI Spine Lumbar W/O Contrast Co mpleted 08/27/2020 54399 MRI Spine Lumbar W/O Contrast Co mpleted 08/23/2020 25024 Nerve Conduction 13+ Studies Com pleted 08/23/2020 20621 Needle Electromyography Complete , Five Or More Muscles Studied Completed 08/23/2020 79508 Needle Electromyography Complete , Five Or More Muscles Studied Completed 08/17/2020 24899 EEG Recording Awake & Asleep Com pleted 08/17/2020 42515 EEG Recording Awake & Asleep Com pleted 08/15/2020 10206 Office/Outpatient New Moderate M DM 45-59 Minutes Completed Medical Devices Description No Information Available Encounters Type Date Location Provider Dx Diagnosis Office Visit 12/16/2020 8:30a [place] M.[place]. G56.03 Carpal tunnel syndrome, bilateral upper limbs E11.40 Type 2 diabetes mellitus wit h diabetic neuropathy, unsp R25.8 Other abnormal involuntary m ovements M47.897 Other spondylosis, lumbosacr al region R41.3 Other amnesia M54.2 Cervicalgia M54.12 Radiculopathy, cervical le on M25.519 Pain in unspecified shoulder G56.21 Lesion of ulnar nerve, right upper limb Office Visit 09/29/2020 9:45a Main office - [place] M.D. M79.602 Pain in left arm G47.51 Confusional arousals E11.40 Type 2 diabetes mellitus wit h diabetic neuropathy, unsp M47.897 Other spondylosis, lumbosacr al region R41.3 Other amnesia M54.2 Cervicalgia R20.2 Paresthesia of skin R26.9 Unspecified abnormalities of gait and mobility Office Visit 08/15/2020 2:30p Main office - [place] A[place] Maher M.D. R25.8 Other abnormal involuntary movements M54.5 Low back pain R41.3 Other amnesia M62.9 Disorder of muscle, unspecif ied Assessments Date Code Description Provider 12/16/2020 G56.03 Carpal tunnel syndrome, bilatera l upper limbs Aria Maher M.D. 12/16/2020 E11.40 Type 2 diabetes bob itus with diabetic neuropathy, unspecified Aria Gunnar, M.D. 12/16/2020 R25.8 Other abnormal involuntary movem ents Aria Gunnar, M.D. 12/16/2020 M47.897 Other spondylosis, lumbosacral r egion Aria Gunnar, M.D. 12/16/2020 R41.3 Other amnesia Aria Gunnar, M. D. 12/16/2020 M54.2 Cervicalgia Aria Gunnar, M. D. 12/16/2020 M54.12 Radiculopathy, cervical region S undus Gunnar, M.D. 12/16/2020 M25.519 Pain in unspecified shoulder Sun dus Gunnar, M.D. 12/16/2020 G56.21 Lesion of ulnar nerve, right upp er limb Aria Gunnar, M.D. 10/13/2020 G56.02 Carpal tunnel syndrome, left upp er limb Elizabeth Gunnar, M.D. 10/13/2020 G56.00 Carpal tunnel syndrome, unspecif ied upper limb Elizabeth Gunnar, M.D. 10/13/2020 M54.12 Radiculopathy, cervical region A bdul Gunnar, M.D. 10/13/2020 M54.2 Cervicalgia Elizabeth Gunnar, M.D . 10/13/2020 R20.2 Paresthesia of skin Elizabeth Gunnar, M.D. 09/30/2020 G60.8 Other hereditary and idiopathic neuropathies Raia Gunnar, M.D. 09/30/2020 G60.8 Other hereditary and idiopathic neuropathies Ans/VS 09/30/2020 I70.228 Atherosclerosis of n ative arteries of extremities with rest pain, other extremity Aria Gunnar, M.D. 09/30/2020 I70.228 Atherosclerosis of n ative arteries of extremities with rest pain, other extremity Ans/VS 09/29/2020 M79.602 Pain in left arm Aria Gunnar, M .D. 09/29/2020 G47.51 Confusional arousals Aria middleton M.D. [...] Loving MD 08/27/2020 R41.3 Other amnesia Elizabeth Gunnar, M.D . 08/27/2020 R41.3 Other amnesia MRI [...] Pain in left leg Elizabeth Gunnar, M. DJohny 08/17/2020 G25.0 Essential tremor Aria Gunnar, M .DJohny 08/17/2020 G25.0 Essential tremor EEG 08/17/2020 R41.3 Other amnesia Donnell Meier. DJohny 08/17/2020 R41.3 Other amnesia EEG 08/15/2020 R25.8 Other abnormal involuntary movem ents Aria Maher M.D. 08/15/2020 M54.5 Low back pain Sergio Meier 08/15/2020 R41.3 Other amnesia Sergio Meier 08/15/2020 M62.9 Disorder of muscle, unspecified Aria Maher M.D. Plan of Treatment Future Appointment(s):* 03/21/2021 8:30 am - Aria Maher M.D. at Main [facility] Functional Status Description No Information Available Mental Status Description No Information Available Referrals Refer to Reason for Referral Status Appt Date Created
--- OUTSIDE RECORDS SUMMARY | 2021-01-09 01:09 | CCD ---
Author Author [facility] Organization [facility] Address Unknown Phone Unavailable Care Team Providers Care Nurse'S Companion Name Role Phone David Reyes Unavailable PROBLEMS Type Condition ICD9-CM Code IYW39-HA Code Onset Dates Condition S tatus W/U Status Risk SNOMED Code Notes Problem Psoriasis L40.9 Active confirmed 1295943 Problem Partial hearing loss, bilateral H91.93 Active confi rmed 847014517 Problem Essential (primary) hypertension I10 Active conf irmed 52324644 Problem Psychophysiological insomnia F51.04 Active confirme d 955833667 Problem Gout of left foot, unspecified cause, unspecified chronici ty M10.9 Active confirmed 982644179 Problem Mixed hyperlipidemia E78.2 Active confirmed 613406598 Problem Type 2 diabetes mellitus wit hout complication, without long-term current use of insulin E11.9 Active confirmed 823986959 Problem Ureteral stone N20.1 Active confirmed 37343 009 Problem UTI (urinary tract infection) N39.0 Active confirm ed 90659588 Problem Memory impairment R41.3 Active confirmed 38 3328512 Problem Heartburn R12 Active confirmed 78424181 Problem Carpal tunnel syndrome of left wrist G56.02 Act randy confirmed 86135785 Problem Obesity, Class II, BMI 35-39.9 E66.9 Active c onfirmed 996422396290327 Problem Fatty liver K76.0 Active confirmed 00783180 7 Problem Mild cognitive impairment G31.84 Active confirmed 361565303 Problem Erectile dysfunction, unspecified erectile dysfunction typ e N52.9 Active confirmed 986941230 Problem LUBA (obstructive sleep apnea) G47.33 Active confirm ed 71646333 ALLERGIES Allergen (clinical drug ingredient) Drug/Non Drug Allergy do cumented on EMR Reaction Allergy Type Onset Date Status dicyclomine Dicyclomine HCl([facility] Code:[address]-49) lightheadedness, bloating, cramps, loss of appetite, belching Drug Allergy Activ e ENCOUNTERS from 1960 to 2020-11-15 Encounter [facility] [address] [facility] [phone] [place] [address] 28 Oct, 2020 David Concepcion (primary) alvarez quiroga I10 IMMUNIZATIONS Vaccine Route Administration Date Status Pfizer [...] Education Language: Question Answer Notes Languages spoken: [place] Islander Druze: Question Answer Notes Druze 03 [employer] Drug and Alcohol Question Answer Notes Total [...] to affected areas both legs and left orthodoxy as needed for 30 days Active Aspirin 81 MG 1 tablet Orally Once a day Active Wrist Brace - as directed topically Daily for 999 days Dx: G56 .02 left wrist Aug, Active Centrum Active Trulicity 1.5 MG/0.5ML as directed Subcutaneous weekly for 90 da ys Jul, Active Sildenafil Citrate 50 MG 1 tablet as needed Orally Once a day for 30 days Active Lisinopril 5 MG 1 tablet Orally Once a day for 90 day(s) Active Allopurinol 100MG 1 tablet Orally Once a day for 90 days Active Vitamin E 180mg Active traZODone HCl 50 MG 1 tablet at bedtime as neede d Orally As needed for 30 day(s) Nov, Not-Taking Diclofenac Sodium 1 % 4g to affected area of shoul sb Transdermal every 6 hrs prn for 13 Active Crestor 20 MG 1 tablet Orally Once a day for 90 days 2020 Active glyBURIDE 5 MG TAKE 1/2 (ONE-HALF) TABLET B Y MOUTH TWICE DAILY PRIOR TO BREAKFAST AND DINNER Orally BID for 90 days Active Januvia 100 MG 1 tablet Orally Once a day for 90 days Active metFORMIN HCl 500 MG 1 tablet with a meal Orally bid for 90 days Active Elbow Brace - as directed topically Daily for 999 days Dx: M77 1.0 left elbow Aug, Active PROCEDURES No Information RESULTS No Results REASON FOR VISIT Lisinopril 5mg Refill MEDICAL (GENERAL) HISTORY Type Description Date Medical [...] No Information FUNCTIONAL STATUS No Information ASSESSMENTS Encounter Date Diagnosis Assessment Notes Treatment Notes Treatm ent Clinical Notes Oct, Essential (primary) hypertension (ICD-10 - I10) PLAN OF TREATMENT Medication Medication Name Sig Start Date Stop Date Lisinopril 5 MG 1 tablet Orally Once a day for 90 day(s) Januvia 100 MG 1 tablet Orally Once a day for 90 days Sildenafil Citrate 50 MG 1 tablet as needed Orally Once a day fo r 30 days Trulicity 1.5 MG/0.5ML as directed Subcutaneous weekly for 90 da ys Jul, glyBURIDE 5 MG TAKE 1/2 (ONE-HALF) TABLET B Y MOUTH TWICE DAILY PRIOR TO BREAKFAST AND DINNER Orally BID for 90 days Allopurinol 100MG 1 tablet Orally Once a day for 90 days Wrist Brace - as directed topically Daily for 999 days Aug, Elbow Brace - as directed topically Daily for 999 days Aug, Insurance Providers Payer Name Payer Address Payer Phone Insured Name Patient Relati onship to Insured Coverage Start Date Coverage End Date [facility] [address] [facility] [phone] SOLEDAD MORALES [id number]
--- OUTSIDE RECORDS SUMMARY | 2021-01-09 01:09 | CCD ---
Author Author [facility] Organization [facility] Address Unknown Phone Unavailable Care Team Providers Care Winding Rack Operator Name Role Phone David Reyes Unavailable PROBLEMS Type Condition ICD9-CM Code AYR39-SS Code Onset Dates Condition S tatus W/U Status Risk SNOMED Code Notes Problem Psoriasis L40.9 Active confirmed 7566543 Problem Partial hearing loss, bilateral H91.93 Active confi rmed 853079230 Problem Essential (primary) hypertension I10 Active conf irmed 76483407 Problem Psychophysiological insomnia F51.04 Active confirme d 138890580 Problem Gout of left foot, unspecified cause, unspecified chronici ty M10.9 Active confirmed 232578128 Problem Mixed hyperlipidemia E78.2 Active confirmed 146035484 Problem Type 2 diabetes mellitus wit hout complication, without long-term current use of insulin E11.9 Active confirmed 450293441 Problem Ureteral stone N20.1 Active confirmed 56554 009 Problem UTI (urinary tract infection) N39.0 Active confirm ed 06234663 Problem Memory impairment R41.3 Active confirmed 38 1955724 Problem Heartburn R12 Active confirmed 94424274 Problem Carpal tunnel syndrome of left wrist G56.02 Act randy confirmed 99417134 Problem Obesity, Class II, BMI 35-39.9 E66.9 Active c onfirmed 825221966262695 Problem Fatty liver K76.0 Active confirmed 68015308 7 Problem Mild cognitive impairment G31.84 Active confirmed 086112787 Problem Erectile dysfunction, unspecified erectile dysfunction typ e N52.9 Active confirmed 612857451 Problem LUBA (obstructive sleep apnea) G47.33 Active confirm ed 33621426 ALLERGIES Allergen (clinical drug ingredient) Drug/Non Drug Allergy do cumented on EMR Reaction Allergy Type Onset Date Status dicyclomine Dicyclomine HCl([facility] Code:[address]-98) lightheadedness, bloating, cramps, loss of appetite, belching Drug Allergy Activ e ENCOUNTERS from 1960 to 2020-10-18 Encounter [facility] Date [facility] [address] [facility] [phone] [place] [address] 30 Sep, 2020 David Reyes Type 2 diabetes mellitus wit hout complication, without long-term current use of insulin E11.9 IMMUNIZATIONS Vaccine Route Administration Date Status Influenza 18 yrs & older Flublok IM Intramuscular Mar 20, 2018 Administered Pfizer #1 dose COVID-19(given elsewhere) SARSCOV2 VAC 30MCG/0.3ML IM IM Intramuscular April 20, 2020 Administered Pfizer #2 dose COVID-19(given elsewhere) SARSCOV2 VAC 30MCG/0.3ML IM IM Intramuscular May 11, 2020 Administered Pneumococcal Adult 0.5mL Pneumovax 23 IM [...] Education Language: Question Answer Notes Languages spoken: Danish Caodaism: Question Answer Notes Caodaism 03 [facility] Drug and Alcohol Question Answer Notes Total [...] to affected areas both legs and left moravian as needed for 30 days Active Crestor [...] 1 tablet Orally Once a day Active Allopurinol 100MG 1 tablet Orally Once a day for 90 Active glyBURIDE 5 MG TAKE 1/2 (ONE-HALF) TABLET B Y MOUTH TWICE DAILY PRIOR TO BREAKFAST AND DINNER Orally BID Active Diclofenac Sodium 1 % 4g to affected area of shoul sb Transdermal every 6 hrs prn for 13 Active Januvia 100 MG 1 tablet Orally Once a day for 90 days Active metFORMIN HCl 500 MG 1 tablet with a meal Orally bid for 90 days Active Elbow Brace - as directed topically Daily for 999 days Dx: M77 1.0 left elbow Aug, Active PROCEDURES No Information RESULTS No Results REASON FOR VISIT multiple refills MEDICAL (GENERAL) HISTORY Type Description Date Medical [...] Notes Treatment Notes Treatm ent Clinical Notes Sep, Type 2 diabetes mellitus wit hout complication, without long-term current use of insulin (ICD-10 - E11.9) PLAN OF TREATMENT Medication Medication Name Sig Start Date Stop Date Trulicity 1.5 MG/0.5ML as directed Subcutaneous weekly for 90 da ys Jul, Januvia 100 MG 1 tablet Orally Once a day for 90 days Elbow Brace - as directed topically Daily for 999 days Aug, Sildenafil Citrate 50 MG 1 tablet as needed Orally Once a day fo r 30 days Wrist Brace - as directed topically Daily for 999 days Aug, Insurance Providers Payer Name Payer Address Payer Phone Insured Name Patient Relati onship to Insured Coverage Start Date Coverage End Date [facility] [address] [facility] [phone] SOLEDAD MORALES [id number]
--- OUTSIDE RECORDS SUMMARY | 2021-01-09 01:09 | CCD | Continuity of Care Document ---
Author Author Massimo GAMA Organization Unknown Address [address] [place] [address] Phone [phone] Care Team Providers Care Machine Tool Designer Name Role Phone David Reyes M.D. AUTM [phone] Problems Description No Information Available Social History [...] Information Available Procedures Date Code Description Status 12/31/2020 26413 MRI Spine Cervical W/O Contrast Completed 12/31/2020 41574 MRI Spine Cervical W/O Contrast Completed 12/31/2020 62727 MRI Spine Cervical W/O Contrast Completed 12/16/2020 15007 Office/Outpatient Established Mo d MDM 30-39 Min Completed 10/13/2020 37102 Nerve Conduction 9-10 Studies Co mpleted 10/13/2020 30065 Needle Electromyogra phy Non Extremity Done With Nerve Conduction Completed 10/13/2020 41209 Needle Electromyography Complete , Five Or More Muscles Studied Completed 09/30/2020 42549 Sympathetic Skin Responses Compl eted 09/30/2020 60441 Test Autonomic Nervous System, C ardiovagal Innervation Completed 09/30/2020 46561 Artery Study Extremity Mult Leve ls Bilateral Completed 09/30/2020 98758 Artery Study Extremity Mult Leve ls Bilateral Completed 09/29/2020 37420 Office/Outpatient Established Mo d MDM 30-39 Min Completed 08/27/2020 85116 MRI Spine Lumbar W/O Contrast Co mpleted 08/27/2020 36798 MRI Brain W/O Contrast Completed 08/27/2020 37056 MRI Brain W/O Contrast Completed 08/27/2020 42900 MRI Brain W/O Contrast Completed 08/27/2020 06953 MRI Spine Lumbar W/O Contrast Co mpleted 08/27/2020 83790 MRI Spine Lumbar W/O Contrast Co mpleted 08/23/2020 99806 Nerve Conduction 13+ Studies Com pleted 08/23/2020 26829 Needle Electromyography Complete , Five Or More Muscles Studied Completed 08/23/2020 10258 Needle Electromyography Complete , Five Or More Muscles Studied Completed 08/17/2020 44822 EEG Recording Awake & Asleep Com pleted 08/17/2020 88750 EEG Recording Awake & Asleep Com pleted 08/15/2020 19183 Office/Outpatient New Moderate M DM 45-59 Minutes Completed Medical Devices Description No Information Available Encounters Type Date Location Provider Dx Diagnosis Office Visit 12/16/2020 8:30a Main office - [place] M.[place]. G56.03 Carpal tunnel syndrome, bilateral upper limbs E11.40 Type 2 diabetes mellitus wit h diabetic neuropathy, unsp R25.8 Other abnormal involuntary m ovements M47.897 Other spondylosis, lumbosacr al region R41.3 Other amnesia M54.2 Cervicalgia M54.12 Radiculopathy, cervical le on M25.519 Pain in unspecified shoulder G56.21 Lesion of ulnar nerve, right upper limb Office Visit 09/29/2020 9:45a Main office - [place] M.D. M79.602 Pain in left arm G47.51 Confusional arousals E11.40 Type 2 diabetes mellitus wit h diabetic neuropathy, unsp M47.897 Other spondylosis, lumbosacr al region R41.3 Other amnesia M54.2 Cervicalgia R20.2 Paresthesia of skin R26.9 Unspecified abnormalities of gait and mobility Office Visit 08/15/2020 2:30p Main office - [place] M.D. R25.8 Other abnormal involuntary movements M54.5 Low back pain R41.3 Other amnesia M62.9 Disorder of muscle, unspecif ied Assessments Date Code Description Provider 12/31/2020 M54.2 Cervicalgia Mahamed Loving MD 12/31/2020 M54.2 Cervicalgia Elizabeth Gunnar, M.D Johny 12/31/2020 M54.2 Cervicalgia MRI 12/31/2020 R20.2 Paresthesia of skin Mahamed Loving MD 12/31/2020 R20.2 Paresthesia of skin Elizabeth Gunnar, M.DJohny 12/31/2020 R20.2 Paresthesia of skin MRI 12/16/2020 G56.03 Carpal tunnel syndrome, bilatera l upper limbs Aria Gunnar, M.D. 12/16/2020 E11.40 Type 2 diabetes bob itus with diabetic neuropathy, unspecified Aria Gunnar, M.DJohny 12/16/2020 R25.8 Other abnormal involuntary movem ents Aria Gunnar, M.DJohny 12/16/2020 M47.897 Other spondylosis, lumbosacral r egion Aria Gunnar, M.DJonhy 12/16/2020 R41.3 Other amnesia Aria Gunnar, M. D. 12/16/2020 M54.2 Cervicalgia Aria Gunnar, M. D. 12/16/2020 M54.12 Radiculopathy, cervical region S undus Gunnar, M.DJohny 12/16/2020 M25.519 Pain in unspecified shoulder Sun [...] Other hereditary and idiopathic neuropathies Aria Gunnar, MJohnyDoJhny 09/30/2020 G60.8 Other hereditary and idiopathic neuropathies Ans/VS 09/30/2020 I70.228 Atherosclerosis of n ative arteries of extremities with rest pain, other extremity Aria Gunnar, M.DJohny 09/30/2020 I70.228 Atherosclerosis of n ative arteries of extremities with rest pain, other extremity Ans/VS 09/29/2020 M79.602 Pain in left arm Donnell Meier .DJohny 09/29/2020 G47.51 Confusional arousals Aria middleton M.D. 09/29/2020 E11.40 Type 2 diabetes bob itus with diabetic neuropathy, unspecified Donnell Meier.DJohny 09/29/2020 M47.897 Other spondylosis, lumbosacral r egion Donnell Meier.DJohny 09/29/2020 R41.3 Other amnesia Sergio Meier 09/29/2020 M54.2 Cervicalgia Donnell Meier. DJohny 09/29/2020 R20.2 Paresthesia of skin Aria Maher M.DJohny 09/29/2020 R26.9 Unspecified abnormalities of gai t and mobility Donnell Meier.Olayinka 08/27/2020 M54.5 Low back pain Mahamed Loving MD 08/27/2020 M54.5 Low back pain Elizabeth Gunnar, M.D Johny 08/27/2020 M54.5 Low back pain MRI 08/27/2020 M54.16 Radiculopathy, lumbar region Juve Loving MD 08/27/2020 M54.16 Radiculopathy, lumbar region Abd ul Gunnar, M.DJohny 08/27/2020 M54.16 Radiculopathy, lumbar region MRI 08/27/2020 G25.0 Essential tremor Mahamed Loving MD 08/27/2020 G25.0 Essential tremor Elizabeth Gunnar, M. DJohny 08/27/2020 G25.0 Essential tremor MRI 08/27/2020 R41.3 [...] Pain in right leg Elizabeth Gunnar, M .D. 08/23/2020 M79.605 Pain in left leg Elizabeth Gunnar, M. D. 08/17/2020 G25.0 Essential tremor Aria Gunnar, M .D. 08/17/2020 G25.0 Essential tremor EEG 08/17/2020 R41.3 Other amnesia Aria Gunnar, M. D. 08/17/2020 R41.3 Other amnesia EEG 08/15/2020 R25.8 Other abnormal involuntary movem ents Ariaus Maher, M.D. 08/15/2020 M54.5 Low back pain Aria Gunnar, M. D. 08/15/2020 R41.3 Other amnesia Aria Gunnar, M. D. 08/15/2020 M62.9 Disorder of muscle, unspecified Aria Maher M.D. Plan of Treatment Future Appointment(s):* 03/21/2021 8:30 am - Aria Maher M.D. at Main office - [place] Functional Status Description No Information Available Mental Status Description No Information Available Referrals Refer to Reason for Referral Status Appt Date Created Created
--- OUTSIDE RECORDS SUMMARY | 2021-01-09 01:09 | CCD ---
Author Author [facility] Organization [facility] Address Unknown Phone Unavailable Care Team Providers Care Instruction Assistant Principal Name Role Phone David Reyes Unavailable PROBLEMS Type Condition ICD9-CM Code [id number] Code Onset Dates Condition S tatus W/U Status Risk SNOMED Code Notes Problem Psoriasis L40.9 Active confirmed 5902592 Problem Partial hearing loss, bilateral H91.93 Active confi rmed 554629359 Problem Essential (primary) hypertension I10 Active conf irmed 47642598 Problem Psychophysiological insomnia F51.04 Active confirme d 122519930 Problem Gout of left foot, unspecified cause, unspecified chronici ty M10.9 Active confirmed 245284113 Problem Mixed hyperlipidemia E78.2 Active confirmed 486636538 Problem Type 2 diabetes mellitus wit hout complication, without long-term current use of insulin E11.9 Active confirmed 147932143 Problem Ureteral stone N20.1 Active confirmed 13265 009 Problem UTI (urinary tract infection) N39.0 Active confirm ed 47234289 Problem Memory impairment R41.3 Active confirmed 38 2191575 Problem Heartburn R12 Active confirmed 64228612 Problem Carpal tunnel syndrome of left wrist G56.02 Act randy confirmed 60045006 Problem Obesity, Class II, BMI 35-39.9 E66.9 Active c onfirmed 960898501584733 Problem Fatty liver K76.0 Active confirmed 63498198 7 Problem Mild cognitive impairment G31.84 Active confirmed 496753351 Problem Erectile dysfunction, unspecified erectile dysfunction typ e N52.9 Active confirmed 002696719 Problem LUBA (obstructive sleep apnea) G47.33 Active confirm ed 03874736 ALLERGIES Allergen (clinical drug ingredient) Drug/Non Drug Allergy do cumented on EMR Reaction Allergy Type Onset Date Status dicyclomine Dicyclomine HCl([facility] Code:[address]-93) lightheadedness, bloating, cramps, loss of appetite, belching Drug Allergy Activ e ENCOUNTERS from 1960 to 2020-11-15 Encounter Location Date Provider Diagnosis [facility] [address] [facility] [phone] [place] [address] 28 Oct, 2020 David Reyes IMMUNIZATIONS Vaccine Route [...] Education Language: Question Answer Notes Languages spoken: Hungarian Yazdanism: Question Answer Notes Yazdanism 03 Evangelical Drug and Alcohol Question Answer Notes Total [...] to affected areas both legs and left adventism as needed for 30 days Active Aspirin [...] Information RESULTS No Results REASON FOR VISIT report hes COVID + MEDICAL (GENERAL) HISTORY Type Description Date Medical [...] Insured Coverage Start Date Coverage End Date [facility] [address] [facility] [address] [employer] [id number]
--- OUTSIDE RECORDS SUMMARY | 2021-01-09 01:09 | CCD ---
Author Author [facility] Organization [facility] Address Unknown Phone Unavailable Care Team Providers Care Diamond Cleaner Name Role Phone David Reyes Unavailable PROBLEMS Type Condition ICD9-CM Code [id number] Code Onset Dates Condition S tatus W/U Status Risk SNOMED Code Notes Problem Psoriasis L40.9 Active confirmed 9523051 Problem Partial hearing loss, bilateral H91.93 Active confi rmed 118467038 Problem Essential (primary) hypertension I10 Active conf irmed 94117079 Problem Psychophysiological insomnia F51.04 Active confirme d 420569813 Problem Gout of left foot, unspecified cause, unspecified chronici ty M10.9 Active confirmed 499789777 Problem Mixed hyperlipidemia E78.2 Active confirmed 637910869 Problem Type 2 diabetes mellitus wit hout complication, without long-term current use of insulin E11.9 Active confirmed 835127431 Problem Ureteral stone N20.1 Active confirmed 99812 009 Problem UTI (urinary tract infection) N39.0 Active confirm ed 41795180 Problem Memory impairment R41.3 Active confirmed 38 8867135 Problem Heartburn R12 Active confirmed 31978210 Problem Carpal tunnel syndrome of left wrist G56.02 Act randy confirmed 80455190 Problem Obesity, Class II, BMI 35-39.9 E66.9 Active c onfirmed 071506301945522 Problem Fatty liver K76.0 Active confirmed 81343138 7 Problem Mild cognitive impairment G31.84 Active confirmed 336472173 Problem Erectile dysfunction, unspecified erectile dysfunction typ e N52.9 Active confirmed 900125418 Problem LUBA (obstructive sleep apnea) G47.33 Active confirm ed 14074758 ALLERGIES Allergen (clinical drug ingredient) Drug/Non Drug Allergy do cumented on EMR Reaction Allergy Type Onset Date Status dicyclomine Dicyclomine HCl([facility] Code:[address]-71) lightheadedness, bloating, cramps, loss of appetite, belching Drug Allergy Activ e ENCOUNTERS from 1960 to 2020-11-04 Encounter Location Date [facility] [address] [facility] [phone] [place] [address] 16 Oct, 2020 David Reyes Type 2 diabetes mellitus wit hout complication, without long-term current use of insulin E11.9 IMMUNIZATIONS Vaccine Route Administration Date Status Pfizer [...] Education Language: Question Answer Notes Languages spoken: Lao Confucianism: Question Answer Notes Confucianism 03 Jainism Drug and Alcohol Question Answer Notes Total [...] to affected areas both legs and left jehovah's witness as needed for 30 days Active Aspirin [...] weekly for 90 da ys Jul, Active Allopurinol 100MG 1 tablet Orally Once a day for 90 days Active Vitamin E 180mg Active Lisinopril 5 MG 1 tablet Orally [...] Information RESULTS No Results REASON FOR VISIT REFILL MEDICAL (GENERAL) HISTORY Type Description Date Medical [...] Treatment Notes Treatm ent Clinical Notes Oct, Type 2 diabetes mellitus wit hout complication, [...] Once a day fo r 30 days Elbow Brace - as directed topically Daily for 999 days Aug, glyBURIDE 5 MG TAKE 1/2 (ONE-HALF) TABLET B Y MOUTH TWICE DAILY PRIOR TO BREAKFAST AND DINNER Orally BID for 90 days Wrist Brace - as directed topically Daily for 999 days Aug, Insurance Providers Payer Name Payer Address Payer Phone Insured Name Patient Relati onship to Insured Coverage Start Date Coverage End Date [facility] [address] [facility] [address] [employer] [id number]
--- OUTSIDE RECORDS SUMMARY | 2021-01-09 01:09 | CCD ---
Author Author [facility] Organization [facility] Address Unknown Phone Unavailable Care Team Providers Care Traffic Analyst Name Role Phone David Reyes Unavailable PROBLEMS Type Condition ICD9-CM Code TNA24-DN Code Onset Dates Condition S tatus W/U Status Risk SNOMED Code Notes Problem Psoriasis L40.9 Active confirmed 8178774 Problem Partial hearing loss, bilateral H91.93 Active confi rmed 336502882 Problem Essential (primary) hypertension I10 Active conf irmed 83746925 Problem Psychophysiological insomnia F51.04 Active confirme d 328617994 Problem Gout of left foot, unspecified cause, unspecified chronici ty M10.9 Active confirmed 358480924 Problem Mixed hyperlipidemia E78.2 Active confirmed 156137109 Problem Type 2 diabetes mellitus wit hout complication, without long-term current use of insulin E11.9 Active confirmed 765497285 Problem Ureteral stone N20.1 Active confirmed 97731 009 Problem UTI (urinary tract infection) N39.0 Active confirm ed 62346705 Problem Memory impairment R41.3 Active confirmed 38 2158683 Problem Heartburn R12 Active confirmed 34239909 Problem Carpal tunnel syndrome of left wrist G56.02 Act randy confirmed 50517919 Problem Obesity, Class II, BMI 35-39.9 E66.9 Active c onfirmed 024524755679138 Problem Fatty liver K76.0 Active confirmed 23106668 7 Problem Mild cognitive impairment G31.84 Active confirmed 927021191 Problem Erectile dysfunction, unspecified erectile dysfunction typ e N52.9 Active confirmed 184639732 Problem LUBA (obstructive sleep apnea) G47.33 Active confirm ed 20158866 ALLERGIES Allergen (clinical drug ingredient) Drug/Non Drug Allergy do cumented on EMR Reaction Allergy Type Onset Date Status dicyclomine Dicyclomine HCl([facility] Code:[address]-85) lightheadedness, bloating, cramps, loss of appetite, belching Drug Allergy Activ e ENCOUNTERS from 1960 to 2020-12-26 Encounter Location Date Provider Diagnosis [facility] [address] [facility] [phone] [place] [address] Dec, David Reyes Type 2 diabetes mellitus wit hout complication, without long-term current use of insulin E11.9 IMMUNIZATIONS Vaccine Route Administration Date Status Pfizer #1 dose COVID-19 (given elsewhere) SARSCOV2 VAC 30MCG/0.3ML IM IM Intramuscular April 20, 2020 Administered Pfizer #3 dose COVID-19 (given elsewhere) SARSCOV2 VAC 30MCG/0.3ML IM IM Intramuscular [...] Education Language: Question Answer Notes Languages spoken: Sinhala Shinto: Question Answer Notes Shinto 03 Denominational Drug and Alcohol Question Answer [...] Vinegar 500 MG as directed Orally Active Elbow Brace - as directed topically Daily for 999 days Dx: M77 1.0 left elbow Aug, Active Crestor 20 MG 1 tablet Orally Once a day for 90 days 2020 Active Wrist Brace - as directed topically Daily for 999 days Dx: G56 .02 left wrist Aug, Active Fluocinonide 0.05 % APPLY TOPICALLY TO THE AFFEC SHADE AREAS ON BOTH LEGS AND LEFT JAIN TWICE DAILY NEEDED for 30 Active Trulicity 1.5 MG/0.5ML as directed Subcutaneous weekly for 90 da ys Jul, Active Sildenafil Citrate 50 MG 1 tablet as needed Orally Once a day for 30 days Active Januvia 100 MG 1 tablet Orally Once a day for 90 days Active Vitamin E 180mg Active Aspirin 81 MG 1 tablet Orally Once a day Active Centrum Active glyBURIDE 5 MG TAKE 1/2 (ONE-HALF) TABLET B Y MOUTH TWICE DAILY PRIOR TO BREAKFAST AND DINNER Orally BID for 90 days Active metFORMIN HCl 500 MG 1 tablet with a meal Orally bid for 90 days Active Allopurinol 100MG 1 tablet Orally Once a day for 90 days Active Lisinopril 5 MG 1 tablet Orally Once a day for 90 day(s) Active traZODone HCl 50 MG 1 tablet at bedtime as neede d Orally As needed for 30 day(s) Nov, Not-Taking Diclofenac Sodium 1 % 4g to affected area of shoul sb Transdermal every 6 hrs prn for 13 Active PROCEDURES No Information RESULTS No Results REASON FOR VISIT Kena lim MEDICAL (GENERAL) HISTORY Type Description Date Medical [...] Notes Treatment Notes Treatm ent Clinical Notes Dec, Type 2 diabetes mellitus wit hout complication, without long-term current use of insulin (ICD-10 - E11.9) PLAN OF TREATMENT Medication Medication Name Sig Start Date Stop Date Januvia 100 MG 1 tablet Orally Once a day for 90 days Lisinopril 5 MG 1 tablet Orally Once a day for 90 day(s) Sildenafil Citrate 50 MG 1 tablet as needed Orally Once a day fo r 30 days Trulicity 1.5 MG/0.5ML as directed Subcutaneous weekly for 90 da ys Jul, Wrist Brace - as directed topically Daily for 999 days Aug, Allopurinol 100MG 1 tablet Orally Once a day for 90 days Fluocinonide 0.05 % APPLY TOPICALLY TO THE AFFEC SHADE AREAS ON BOTH LEGS AND LEFT JAIN TWICE DAILY NEEDED for 30 Elbow Brace - as directed topically Daily for 999 days Aug, glyBURIDE 5 MG TAKE 1/2 (ONE-HALF) TABLET B Y MOUTH TWICE DAILY PRIOR TO BREAKFAST AND DINNER Orally BID for 90 days Insurance Providers Payer Name Payer Address Payer Phone Insured Name Patient Relati onship to Insured Coverage Start Date Coverage End Date [facility] [address] [facility] [id number] [employer] [id number]
--- OUTSIDE RECORDS SUMMARY | 2021-01-09 01:10 | CCD ---
Author Author [facility] Organization [facility] Address Unknown Phone Unavailable Care Team Providers Care Ski Top Trimmer Name Role Phone David Reyes Unavailable PROBLEMS Type Condition ICD9-CM Code [id number] Code Onset Dates Condition S tatus W/U Status Risk SNOMED Code Notes Problem Psoriasis L40.9 Active confirmed 4049599 Problem Partial hearing loss, bilateral H91.93 Active confi rmed 002967617 Problem Essential (primary) hypertension I10 Active conf irmed 23440424 Problem Psychophysiological insomnia F51.04 Active confirme d 785489879 Problem Gout of left foot, unspecified cause, unspecified chronici ty M10.9 Active confirmed 445900340 Problem Mixed hyperlipidemia E78.2 Active confirmed 136045298 Problem Type 2 diabetes mellitus wit hout complication, without long-term current use of insulin E11.9 Active confirmed 035221317 Problem Ureteral stone N20.1 Active confirmed 10083 009 Problem UTI (urinary tract infection) N39.0 Active confirm ed 31104191 Problem Memory impairment R41.3 Active confirmed 38 6647121 Problem Heartburn R12 Active confirmed 88465313 Problem Carpal tunnel syndrome of left wrist G56.02 Act randy confirmed 83272604 Problem Obesity, Class II, BMI 35-39.9 E66.9 Active c onfirmed 703744315489738 Problem Fatty liver K76.0 Active confirmed 37048106 7 Problem Mild cognitive impairment G31.84 Active confirmed 709317143 Problem Erectile dysfunction, unspecified erectile dysfunction typ e N52.9 Active confirmed 373938760 Problem LUBA (obstructive sleep apnea) G47.33 Active confirm ed 47709555 ALLERGIES Allergen (clinical drug ingredient) Drug/Non Drug Allergy do cumented on EMR Reaction Allergy Type Onset Date Status dicyclomine Dicyclomine HCl([facility] Code:[address]-30) lightheadedness, bloating, cramps, loss of appetite, belching Drug Allergy Activ e ENCOUNTERS from 1960 to 2020-10-13 Encounter Location Date Provider Diagnosis [facility] [address] [address] [facility] [phone] [place] [address] Sep, 2020 David Reyes Erectile dysfunction, unspec ified erectile dysfunction type N52.9 IMMUNIZATIONS Vaccine Route Administration Date Status Pfizer [...] Education Language: Question Answer Notes Languages spoken: Ivorian Temple: Question Answer Notes Temple 03 Catholic Drug and Alcohol Question Answer Notes Total [...] to affected areas both legs and left orthodox as needed for 30 days Active Trulicity 1.5 MG/0.5ML as directed Subcutaneous weekly for 30 da ys Jul, Active Wrist Brace - as directed topically Daily for 999 days Dx: G56 .02 left wrist Aug, Active metFORMIN HCl 500 MG 1 tablet with a meal Orally bid for 90 days Active traZODone HCl 50 MG 1 tablet at bedtime as neede d Orally As needed for 30 day(s) Nov, Not-Taking Lisinopril 5 MG 1 tablet Orally Once a day Active Centrum Active Diclofenac Sodium 1 % 4g to affected area of shoul sb Transdermal every 6 hrs prn for 13 Active Vitamin E 180mg Active glyBURIDE 5 MG TAKE 1/2 (ONE-HALF) TABLET B Y MOUTH TWICE DAILY PRIOR TO BREAKFAST AND DINNER Orally BID Active Elbow Brace - as directed topically Daily for 999 days Dx: M77 1.0 left elbow Aug, Active Aspirin 81 MG 1 tablet Orally Once a day Active Allopurinol 100MG 1 tablet Orally Once a day for 90 Active Sildenafil Citrate 50 MG 1 tablet as needed Orally Once a day for 30 days Active Crestor 20 MG 1 tablet Orally Once a day for 90 days 2020 Active Januvia 100 MG 1 tablet Orally Once a day for 30 days Active PROCEDURES No Information RESULTS No Results REASON FOR VISIT Sildenafil refill MEDICAL (GENERAL) HISTORY Type Description Date [...] Treatment Notes Treatm ent Clinical Notes Sep, Erectile dysfunction, unspec ified erectile dysfunction type (ICD-10 - N52.9) PLAN OF TREATMENT Medication Medication Name Sig Start Date Stop Date Elbow Brace - as directed topically Daily for 999 days Aug, Sildenafil Citrate 50 MG 1 tablet as needed Orally Once a day fo r 30 days Wrist Brace - as directed topically Daily for 999 days Aug, Insurance Providers Payer Name Payer Address Payer Phone Insured Name Patient Relati onship to Insured Coverage Start Date Coverage End Date [facility] [address] [facility] [address] [employer] [id number]
--- OUTSIDE RECORDS SUMMARY | 2021-01-09 01:10 | CCD | Continuity of Care Document ---
Author Author [facility] Organization Unknown Address [address] [place] [address] Phone [phone] Care Team Providers Care Leather Cutter Name Role Phone David Reyes D.O. AUTM [phone] Problems Active Problems Provider Date Essential hypertension Keegan Yoo M.D. Onset: 6 Social History Type Date Description Comments Sex Unknown ETOH Use Denies alcohol use Recreational Drug Use Denies Drug Use Tobacco Use Reviewed: 04/01/18 Patient has never smoked Smoking Status Reviewed: 10/14/19 Patient has never smoked Allergies, Adverse Reactions, Alerts Active Allergies Criticality Reaction | Severity Comments Date Dicyclomine Unable to assess criticality n/v rash 04/09/2016 Inactive Allergies NKDA Unable to assess criticality 03/04/2015 Medications Active Medications SIG Qnty Indications Ordering Provide r Date Glyburide 2.5mg Tablets twice a day Unknown Lisinopril 5mg Tablets once a day Unknown Aspirin 81mg Tablets 1 by mouth every day Unknown Trazodone HCL 50mg Tablets as needed Unknown Loratadine 10mg Tablets as ne eded Unknown Ondansetron 4mg Tablets Dispers as needed Unknown Metrogel 1% prn Unknown Allopurinol 100mg Tablets 1 by mouth every day Unknown Metformin HCL 500mg Tablets 1 tab by mouth twice a day 6tabs Unknown Acetaminophen 325mg Tablets a s needed Unknown CPAP 10cm - [facility] Unknown Atorvastatin Calcium 1/2 tab by mouth every morning an evening Unknown Januvia 25mg Tablets 1 tab by mouth every day Unknown Diclofenac Sodium 1% Gel Apply 4 Grams To Shoulder Every 6 Hours as Needed Unknown Trulicity 1.5mg/0.5ML Solution Pen -Inject 1 every week Unknown Immunizations Description No Information Available Vital Signs Date Vital Result Comment 10/13/2020 9:26am BP Systolic 120 mmHg BP Diastolic 78 mmHg Heart Rate 71 /min O2 % BldC Oximetry 98 % Height 73 inches 6'1" Weight 251.00 lb BMI (Body Mass Index) 33.1 kg/m2 [place] Body Weight 184 lb Weight 113.854 kg BSA (Body Surface Area) 2.37 m2 10/14/2019 9:36am BP Systolic 120 mmHg BP Diastolic 84 mmHg Heart Rate 83 /min O2 % BldC Oximetry 95 % Body Temperature 97.1 F Height 73 inches 6'1" Weight 260.38 lb BMI (Body Mass Index) 34.3 kg/m2 [place] Body Weight 184 lb Weight 118.106 kg BSA (Body Surface Area) 2.41 m2 Results Description No Information Available Procedures Date Code Description Status 10/13/2020 17031 Office/Outpatient Established Lo w MDM 20-29 Min Completed Medical Devices Description No Information Available Encounters Type Date Location Provider Dx Diagnosis Office Visit 10/13/2020 9:45a [facility] Hi Jeffers, N.PJohny G47.33 Obstructive sleep apnea (adult) (pediatr ic) Assessments Date Code Description Provider 10/13/2020 G47.33 Obstructive sleep apnea (adult) (pediatric) Raeann Jeffers, N.P. Plan of Treatment Future Appointment(s):* 10/16/2021 9:30 am - Raeann Jeffers, N.P. at [facility] 10/13/2020 - Raeann Jeffers, N.P.* G47.33 Obstructive sleep apnea (adult) (pediatric) * * New Orders:* CPAP/BIPAP Supply, Ordered: 10/13/20 * Comments:* 1. No changes were made to the CPAP pressure at today's visit. 2. The patient is aware to call with any problems related to CPAP use, snoring through the mask or return of daytime sleepiness. 3. Per the patient's request, a CPAP supply order has been sent to the [facility]. * Follow up:* 1. Follow up in one year to reassess CPAP compliance or sooner should problems develop. Functional Status Description No Information Available Mental Status Description No Information Available Referrals Description No Information Available
--- OUTSIDE RECORDS SUMMARY | 2021-01-09 01:10 | CCD ---
Author Author [facility] Organization [facility] Address Unknown Phone Unavailable Care Team Providers Care Car Seat Upholsterer Name Role Phone DENIS ARZATE MD Unavailable Unavailable DENIS ARZATE MD Unavailable Unavailable DENIS ARZATE MD Unavailable Unavailable DENIS ARZATE MD Unavailable Unavailable DENIS ARZATE MD Unavailable Unavailable DENIS ARZATE MD Unavailable Unavailable DENIS ARZATE MD Unavailable Unavailable DENIS ARZATE MD Unavailable Unavailable DENIS ARZATE MD Unavailable Unavailable DENIS ARZATE MD Unavailable Unavailable DENIS ARZATE MD Unavailable Unavailable DENIS ARZATE MD Unavailable Unavailable DENIS ARZATE MD Unavailable Unavailable DENIS ARZATE MD Unavailable Unavailable DENIS ARZATE MD Unavailable Unavailable DENIS ARZATE MD Unavailable Unavailable DENIS ARZATE MD Unavailable Unavailable DENIS ARZATE MD Unavailable Unavailable DENIS ARZATE MD Unavailable Unavailable DENIS ARZATE MD Unavailable Unavailable DENIS ARZATE MD Unavailable Unavailable DENIS ARZATE MD Unavailable Unavailable DENIS ARZATE MD Unavailable Unavailable DENIS ARZATE MD Unavailable Unavailable DENIS ARZATE MD Unavailable Unavailable DENIS ARZATE MD Unavailable Unavailable DENIS ARZATE MD Unavailable Unavailable DENIS ARZATE MD Unavailable Unavailable DENIS ARZATE MD Unavailable Unavailable DENIS ARZATE MD Unavailable Unavailable DENIS ARZATE MD Unavailable Unavailable DENIS ARZATE MD Unavailable Unavailable DENIS ARZATE MD Unavailable Unavailable DENIS ARZATE MD Unavailable Unavailable DENIS ARZATE MD Unavailable Unavailable DENIS ARZATE MD Unavailable Unavailable DENIS ARZATE MD Unavailable Unavailable HUEY, DENIS MD Unavailable Unavailable HUEY, DENIS MD Unavailable Unavailable HUEY, DENIS MD Unavailable Unavailable HUEY, DENIS MD Unavailable Unavailable HUEY, DENIS MD Unavailable Unavailable HUEY, DENIS MD Unavailable Unavailable JENNIFER, LEWIS OSITO PRODUCT DEVELOPMENT TECHNICIAN-C Unavailable Unavailable JENNIFER, LEWIS OSITO PRODUCT DEVELOPMENT TECHNICIAN-C Unavailable Unavailable JENNIFER, LEWIS OSITO PRODUCT DEVELOPMENT TECHNICIAN-C Unavailable Unavailable JENNIFER, LEWIS OSITO PRODUCT DEVELOPMENT TECHNICIAN-C Unavailable Unavailable JENNIFER, LEWIS OSITO PRODUCT DEVELOPMENT TECHNICIAN-C Unavailable Unavailable JENNIFER, LEWIS OSITO PRODUCT DEVELOPMENT TECHNICIAN-C Unavailable Unavailable JENNIFER, LEWIS OSITO PRODUCT DEVELOPMENT TECHNICIAN-C Unavailable Unavailable JENNIFER, LEWIS OSITO PRODUCT DEVELOPMENT TECHNICIAN-C Unavailable Unavailable JENNIFER, LEWIS OSITO PRODUCT DEVELOPMENT TECHNICIAN-C Unavailable Unavailable JENNIFER, LEWIS OSITO PRODUCT DEVELOPMENT TECHNICIAN-C Unavailable Unavailable JENNIFER, LEWIS OSITO PRODUCT DEVELOPMENT TECHNICIAN-C Unavailable Unavailable JENNIFER, LEWIS OSITO PRODUCT DEVELOPMENT TECHNICIAN-C Unavailable Unavailable JENNIFER, LEWIS OSITO PRODUCT DEVELOPMENT TECHNICIAN-C Unavailable Unavailable JENNIFER, LEWIS OSITO PRODUCT DEVELOPMENT TECHNICIAN-C Unavailable Unavailable JENNIFER, LEWIS OSITO PRODUCT DEVELOPMENT TECHNICIAN-C Unavailable Unavailable JENNIFER, LEWIS OSITO PRODUCT DEVELOPMENT TECHNICIAN-C Unavailable Unavailable JENNIFER, LEWIS OSITO PRODUCT DEVELOPMENT TECHNICIAN-C Unavailable Unavailable Re-disclosure Warning The records that you are about to access may contain information from federally-assisted alcohol or drug abuse programs. If such information is present, then the following federally mandated warning applies: This information has been disclosed to you from records protected by federal confidentiality rules (42 CFR part 2). The federal rules prohibit you from making any further disclosure of this information unless further disclosure is expressly permitted by the written consent of the person to whom it pertains or as otherwise permitted by 42 CFR part 2. A general authorization for the release of medical or other information is NOT sufficient for this purpose. The Federal rules restrict any use of the information to criminally investigate or prosecute any alcohol or drug abuse patient.The records that you are about to access may contain highly sensitive health information, the redisclosure of which is protected by Article 27-F of the [facility] Public Health law. If you continue you may have access to information: Regarding HIV / AIDS; Provided by facilities licensed or operated by the [facility] Office of Mental Health; or Provided by the [facility] Office for People With Developmental Disabilities. If such information is present, then the following [facility] mandated warning applies: This information has been disclosed to you from confidential records which are protected by state law. State law prohibits you from making any further disclosure of this information without the specific written consent of the person to whom it pertains, or as otherwise permitted by law. Any unauthorized further disclosure in violation of state law may result in a fine or snf sentence or both. A general authorization for the release of medical or other information is NOT sufficient authorization for further disc losure. Family History Family Member Name Family Member Gender Family Member Status Date o f Status Description Data Source(s) Unknown Unknown Problem MEDENT ([facility], ) Unknown Male Problem MEDENT ([facility] () Unknown Female Problem MEDENT ([facility]) Unknown Female Problem MEDENT ([facility] ) Encounters Encounter Providers Location Date Indications Data Source(s ) Outpatient Attender: DENIS ARZATE MD Main office [facility] 12/16/2020 08:30:00 AM EDT MEDENT ([facility]) Unknown [address] [facility] [address] 11/15/2020 12:00:00 AM EDT [facility]CW[facility] Unknown [address] [facility] [id number] 11/15/2020 12:00:00 AM EDT [facility]CW[facility] Unknown [address] [facility] [address] 11/03/2020 12:00:00 AM EDT [facility]CW[facility] Unknown [address] [facility] [address] 10/26/2020 12:00:00 AM EDT eCW1 [facility] Unknown [address] [facility] [place] [address] 10/17/2020 12:00:00 AM EDT [facility]CW[facility] Outpatient Attender: OSITO Solano/Charissa/Otilio/R maribel 10/13/2020 09:45:00 AM EDT MEDENT ([facility] Flako orantes, [place]) [place] [address] [facility] [address] 10/12/2020 12:00:00 AM EDT eCW1 ([facility]) Outpatient Attender: DENIS ARZATE MD Main office - [facility] [place] 09/29/2020 09:45:00 AM EDT MEDENT ([facility] RENA [facility]) [place] [address] [facility] [address] 09/12/2020 12:00:00 AM EDT eCW1 ([facility]) [place] [address] [facility] [address] 09/12/2020 12:00:00 AM EDT eCW1 ([facility]) [place] [address] [facility] [address] 08/29/2020 12:00:00 AM EDT eCW1 ([facility]) Outpatient Attender: DENIS ARZATE MD Main office - [facility] [place] 08/15/2020 02:30:00 PM EDT MEDENT ([facility] RE[facility]) [place] [address] [facility] [address] 07/27/2020 12:00:00 AM EDT eCW1 ([facility]) [place] [address] [facility] [address] 07/20/2020 12:00:00 AM EDT eCW1 ([facility]) [place] [address] [facility] [address] 06/14/2020 12:00:00 AM EDT eCW1 ([facility]) [place] [address] [facility] [place] [address] 06/10/2020 12:00:00 AM EDT eCW1 ([facility]) [place] [address] [facility] [address] 04/26/2020 12:00:00 AM EST eCW1 ([facility]) [place] [address] [facility] [address] 04/04/2020 12:00:00 AM EST eCW1 ([facility]) [place] [address] [facility] [address] 03/03/2020 12:00:00 AM EST eCW1 ([facility]) [place] [address] [facility] [address] 01/29/2020 12:00:00 AM EST eCW1 ([facility]) [place] [address] [facility] [address] 01/21/2020 12:00:00 AM EST eCW1 ([facility]) [place] [address] [facility] [address] 01/21/2020 12:00:00 AM EST eCW1 ([facility]) [place] [address] [facility] [address] 01/13/2020 12:00:00 AM EST eCW1 ([facility]) Immunizations Vaccine Date Status Description Data Source(s) COVID-19 dose #2 given elsewhere Unspecified 05/11/2020 11:2 6:00 AM EDT completed eCW1 ([facility]) Pfizer #2 dose COVID-19(given elsewhere) SARSCOV2 VAC 30MCG/0.3ML IM 05/11/2020 08:06:00 AM EDT completed eCW1 ([facility]) Pfizer #2 dose COVID-19(given elsewhere) SARSCOV2 VAC 30MCG/0.3ML IM 05/11/2020 08:06:00 AM EDT completed eCW1 ([facility]) Pfizer #2 dose COVID-19(given elsewhere) SARSCOV2 VAC 30MCG/0.3ML IM 05/11/2020 08:06:00 AM EDT completed eCW1 ([facility]) Pfizer #2 dose COVID-19(given elsewhere) SARSCOV2 VAC 30MCG/0.3ML IM 05/11/2020 08:06:00 AM EDT completed eCW1 ([facility]) Pfizer #2 dose COVID-19(given elsewhere) SARSCOV2 VAC 30MCG/0.3ML IM 05/11/2020 08:06:00 AM EDT completed eCW1 ([facility]) Pfizer #2 dose COVID-19(given elsewhere) SARSCOV2 VAC 30MCG/0.3ML IM 05/11/2020 08:06:00 AM EDT completed eCW1 ([facility]) Pfizer #2 dose COVID-19(given elsewhere) SARSCOV2 VAC 30MCG/0.3ML IM 05/11/2020 08:06:00 AM EDT completed eCW1 ([facility]) Pfizer #2 dose COVID-19(given elsewhere) SARSCOV2 VAC 30MCG/0.3ML IM 05/11/2020 08:06:00 AM EDT completed eCW1 ([facility]) Pfizer #2 dose COVID-19(given elsewhere) SARSCOV2 VAC 30MCG/0.3ML IM 05/11/2020 08:06:00 AM EDT completed eCW1 ([facility]) Pfizer #2 dose COVID-19(given elsewhere) SARSCOV2 VAC 30MCG/0.3ML IM 05/11/2020 08:06:00 AM EDT completed eCW1 ([facility]) Pfizer #2 dose COVID-19(given elsewhere) SARSCOV2 VAC 30MCG/0.3ML IM 05/11/2020 08:06:00 AM EDT completed eCW1 ([facility]) COVID-19 VACCINE Pfizer 05/11/2020 12:00:00 AM EDT completed [employer] Vaccine Series Complete: YESThis Data wa s Submitted to [facility] Via [employer]. COVID-19 dose #1 given elsewhere Unspecified 04/21/2020 11:2 5:00 AM EST completed eCW1 ([facility]) Pfizer #1 dose COVID-19(given elsewhere) SARSCOV2 VAC 30MCG/0.3ML IM 04/20/2020 08:06:00 AM EST completed eCW1 ([facility]) Pfizer #1 dose COVID-19(given elsewhere) SARSCOV2 VAC 30MCG/0.3ML IM 04/20/2020 08:06:00 AM EST completed eCW1 ([facility]) Pfizer #1 dose COVID-19(given elsewhere) SARSCOV2 VAC 30MCG/0.3ML IM 04/20/2020 08:06:00 AM EST completed eCW1 ([facility]) Pfizer #1 dose COVID-19(given elsewhere) SARSCOV2 VAC 30MCG/0.3ML IM 04/20/2020 08:06:00 AM EST completed eCW1 ([facility]) Pfizer #1 dose COVID-19(given elsewhere) SARSCOV2 VAC 30MCG/0.3ML IM 04/20/2020 08:06:00 AM EST completed eCW1 ([facility]) Pfizer #1 dose COVID-19(given elsewhere) SARSCOV2 VAC 30MCG/0.3ML IM 04/20/2020 08:06:00 AM EST completed eCW1 ([facility]) Pfizer #1 dose COVID-19(given elsewhere) SARSCOV2 VAC 30MCG/0.3ML IM 04/20/2020 08:06:00 AM EST completed eCW1 ([facility]) Pfizer #1 dose COVID-19(given elsewhere) SARSCOV2 VAC 30MCG/0.3ML IM 04/20/2020 08:06:00 AM EST completed eCW1 ([facility]) Pfizer #1 dose COVID-19(given elsewhere) SARSCOV2 VAC 30MCG/0.3ML IM 04/20/2020 08:06:00 AM EST completed eCW1 ([facility]) Pfizer #1 dose COVID-19(given elsewhere) SARSCOV2 VAC 30MCG/0.3ML IM 04/20/2020 08:06:00 AM EST completed eCW1 ([facility]) Pfizer #1 dose COVID-19(given elsewhere) SARSCOV2 VAC 30MCG/0.3ML IM 04/20/2020 08:06:00 AM EST completed eCW1 ([facility]) COVID-19 VACCINE Pfizer 04/20/2020 12:00:00 AM EST completed [employer] Vaccine Series Complete: NOThis Data was Submitted to [facility] Via [employer]. Medications Medication Brand Name Start Date Product Form Dose Route Admi nistrative Instructions Pharmacy Instructions Status Indications Reaction Description Data Source(s) gabapentin 100 MG Oral Capsule [Neurontin] Neurontin 10/13 12:00:00 AM EDT ORAL active MEDENT ( [facility] ) Elbow Brace - Elbow Brace - 09/12/2020 12:00:00 AM EDT active Elbow Brace - eCW1 ([facility]) Elbow Brace - Elbow Brace - 09/12/2020 12:00:00 AM EDT active Elbow Brace - eCW1 ([facility]) Wrist Brace - Wrist Brace - 09/12/2020 12:00:00 AM EDT active Wrist Brace - eCW1 ([facility]) Elbow Brace - Elbow Brace - 09/12/2020 12:00:00 AM EDT active Elbow Brace - eCW1 ([facility]) Elbow Brace - Elbow Brace - 09/12/2020 12:00:00 AM EDT active Elbow Brace - eCW1 ([facility]) Wrist Brace - Wrist Brace - 09/12/2020 12:00:00 AM EDT active Wrist Brace - eCW1 ([facility]) Wrist Brace - Wrist Brace - 09/12/2020 12:00:00 AM EDT active Wrist Brace - eCW1 ([facility]) Elbow Brace - Elbow Brace - 09/12/2020 12:00:00 AM EDT active Elbow Brace - eCW1 ([facility]) Elbow Brace - Elbow Brace - 09/12/2020 12:00:00 AM EDT active Elbow Brace - eCW1 ([facility]) Wrist Brace - Wrist Brace - 09/12/2020 12:00:00 AM EDT active Wrist Brace - eCW1 ([facility]) Wrist Brace - Wrist Brace - 09/12/2020 12:00:00 AM EDT active Wrist Brace - eCW1 ([facility]) Wrist Brace - Wrist Brace - 09/12/2020 12:00:00 AM EDT active Wrist Brace - eCW1 ([facility]) Elbow Brace - Elbow Brace - 09/12/2020 12:00:00 AM EDT active Elbow Brace - eCW1 ([facility]) Wrist Brace - Wrist Brace - 09/12/2020 12:00:00 AM EDT active Wrist Brace - eCW1 ([facility]) Elbow Brace - Elbow Brace - 09/12/2020 12:00:00 AM EDT active Elbow Brace - eCW1 ([facility]) Wrist Brace - Wrist Brace - 09/12/2020 12:00:00 AM EDT active Wrist Brace - eCW1 ([facility]) 0.5 ML dulaglutide 3 MG/ML Auto-Injector [Trulicity] T rulicity 1.5 MG/0.5ML Trulicity 1.5 MG/0.5ML 07/20/2020 12:00:00 AM EDT active Trulicity 1.5 MG/0.5ML eCW1 ([facility]) 0.5 ML dulaglutide 3 MG/ML Auto-Injector [Trulicity] T rulicity 1.5 MG/0.5ML Trulicity 1.5 MG/0.5ML 07/20/2020 12:00:00 AM EDT active Trulicity 1.5 MG/0.5ML eCW1 ([facility]) 0.5 ML dulaglutide 3 MG/ML Auto-Injector [Trulicity] T rulicity 1.5 MG/0.5ML Trulicity 1.5 MG/0.5ML 07/20/2020 12:00:00 AM EDT active Trulicity 1.5 MG/0.5ML eCW1 ([facility]) 0.5 ML dulaglutide 3 MG/ML Auto-Injector [Trulicity] T rulicity 1.5 MG/0.5ML Trulicity 1.5 MG/0.5ML 07/20/2020 12:00:00 AM EDT active Trulicity 1.5 MG/0.5ML eCW1 ([facility]) 0.5 ML dulaglutide 3 MG/ML Auto-Injector [Trulicity] T rulicity 1.5 MG/0.5ML Trulicity 1.5 MG/0.5ML 07/20/2020 12:00:00 AM EDT active Trulicity 1.5 MG/0.5ML eCW1 ([facility]) 0.5 ML dulaglutide 3 MG/ML Auto-Injector [Trulicity] T rulicity 1.5 MG/0.5ML Trulicity 1.5 MG/0.5ML 07/20/2020 12:00:00 AM EDT active Trulicity 1.5 MG/0.5ML eCW1 ([facility]) 0.5 ML dulaglutide 3 MG/ML Auto-Injector [Trulicity] T rulicity 1.5 MG/0.5ML Trulicity 1.5 MG/0.5ML 07/20/2020 12:00:00 AM EDT active Trulicity 1.5 MG/0.5ML eCW1 ([facility]) 0.5 ML dulaglutide 3 MG/ML Auto-Injector [Trulicity] T rulicity 1.5 MG/0.5ML Trulicity 1.5 MG/0.5ML 07/20/2020 12:00:00 AM EDT active Trulicity 1.5 MG/0.5ML eCW1 ([facility]) 0.5 ML dulaglutide 3 MG/ML Auto-Injector [Trulicity] T rulicity 1.5 MG/0.5ML Trulicity 1.5 MG/0.5ML 07/20/2020 12:00:00 AM EDT active Trulicity 1.5 MG/0.5ML eCW1 ([facility]) 0.5 ML dulaglutide 3 MG/ML Auto-Injector [Trulicity] T rulicity 1.5 MG/0.5ML Trulicity 1.5 MG/0.5ML 07/20/2020 12:00:00 AM EDT active Trulicity 1.5 MG/0.5ML eCW1 ([facility]) 0.5 ML dulaglutide 3 MG/ML Auto-Injector [Trulicity] T rulicity 1.5 MG/0.5ML Trulicity 1.5 MG/0.5ML 07/20/2020 12:00:00 AM EDT active Trulicity 1.5 MG/0.5ML eCW1 ([facility]) Rosuvastatin calcium 20 MG Oral Tablet [Crestor] Crestor 20 MG Crestor 20 MG 04/26/2020 12:00:00 AM EST 1.0 {tablet} active Crestor 20 MG eCW1 ([facility]) Rosuvastatin calcium 20 MG Oral Tablet [Crestor] Crestor 20 MG Crestor 20 MG 04/26/2020 12:00:00 AM EST 1.0 {tablet} active Crestor 20 MG eCW1 ([facility]) Rosuvastatin calcium 20 MG Oral Tablet [Crestor] Crestor 20 MG Crestor 20 MG 04/26/2020 12:00:00 AM EST 1.0 {tablet} active Crestor 20 MG eCW1 ([facility]) Rosuvastatin calcium 20 MG Oral Tablet [Crestor] Crestor 20 MG Crestor 20 MG 04/26/2020 12:00:00 AM EST 1.0 {tablet} active Crestor 20 MG eCW1 ([facility]) Rosuvastatin calcium 20 MG Oral Tablet [Crestor] Crestor 20 MG Crestor 20 MG 04/26/2020 12:00:00 AM EST 1.0 {tablet} active Crestor 20 MG eCW1 ([facility]) Rosuvastatin calcium 20 MG Oral Tablet [Crestor] Crestor 20 MG Crestor 20 MG 04/26/2020 12:00:00 AM EST 1.0 {tablet} active Crestor 20 MG eCW1 ([facility]) Rosuvastatin calcium 20 MG Oral Tablet [Crestor] Crestor 20 MG Crestor 20 MG 04/26/2020 12:00:00 AM EST 1.0 {tablet} active Crestor 20 MG eCW1 ([facility]) Rosuvastatin calcium 20 MG Oral Tablet [Crestor] Crestor 20 MG Crestor 20 MG 04/26/2020 12:00:00 AM EST 1.0 {tablet} active Crestor 20 MG eCW1 ([facility]) Rosuvastatin calcium 20 MG Oral Tablet [Crestor] Crestor 20 MG Crestor 20 MG 04/26/2020 12:00:00 AM EST 1.0 {tablet} active Crestor 20 MG eCW1 ([facility]) Rosuvastatin calcium 20 MG Oral Tablet [Crestor] Crestor 20 MG Crestor 20 MG 04/26/2020 12:00:00 AM EST 1.0 {tablet} active Crestor 20 MG eCW1 ([facility]) Rosuvastatin calcium 20 MG Oral Tablet [Crestor] Crestor 20 MG Crestor 20 MG 04/26/2020 12:00:00 AM EST 1.0 {tablet} active Crestor 20 MG eCW1 ([facility]) Rosuvastatin calcium 20 MG Oral Tablet [Crestor] Crestor 20 MG Crestor 20 MG 04/26/2020 12:00:00 AM EST 1.0 {tablet} active Crestor 20 MG eCW1 ([facility]) Rosuvastatin calcium 20 MG Oral Tablet [Crestor] Crestor 20 MG Crestor 20 MG 04/26/2020 12:00:00 AM EST 1.0 {tablet} active Crestor 20 MG eCW1 ([facility]) Rosuvastatin calcium 20 MG Oral Tablet [Crestor] Crestor 20 MG Crestor 20 MG 04/26/2020 12:00:00 AM EST 1.0 {tablet} active Crestor 20 MG eCW1 ([facility]) 0.5 ML dulaglutide 1.5 MG/ML Auto-Injector [Trulicity] Trulicity 0.75 MG/0.5ML Trulicity 0.75 MG/0.5ML 01/21/2020 12:00:00 AM EST active Trulicity 0.75 MG/0.5ML eCW1 ([facility]) 0.5 ML dulaglutide 1.5 MG/ML Auto-Injector [Trulicity] Trulicity 0.75 MG/0.5ML Trulicity 0.75 MG/0.5ML 01/21/2020 12:00:00 AM EST active Trulicity 0.75 MG/0.5ML eCW1 ([facility]) 0.5 ML dulaglutide 1.5 MG/ML Auto-Injector [Trulicity] Trulicity 0.75 MG/0.5ML Trulicity 0.75 MG/0.5ML 01/21/2020 12:00:00 AM EST active Trulicity 0.75 MG/0.5ML eCW1 ([facility]) sildenafil 50 MG Oral Tablet Sildenafil Citrate 50 MG Silden afil Citrate 50 MG 01/21/2020 12:00:00 AM EST 1.0 {tablet_as_needed} active Sildenafil Citrate 50 MG eCW1 ([facility]) 0.5 ML dulaglutide 1.5 MG/ML Auto-Injector [Trulicity] Trulicity 0.75 MG/0.5ML Trulicity 0.75 MG/0.5ML 01/21/2020 12:00:00 AM EST active Trulicity 0.75 MG/0.5ML eCW1 ([facility]) sildenafil 50 MG Oral Tablet Sildenafil Citrate 50 MG Silden afil Citrate 50 MG 01/21/2020 12:00:00 AM EST 1.0 {tablet_as_needed} active Sildenafil Citrate 50 MG eCW1 ([facility]) sildenafil 50 MG Oral Tablet Sildenafil Citrate 50 MG Silden afil Citrate 50 MG 01/21/2020 12:00:00 AM EST 1.0 {tablet_as_needed} active Sildenafil Citrate 50 MG eCW1 ([facility]) sildenafil 50 MG Oral Tablet Sildenafil Citrate 50 MG Silden afil Citrate 50 MG 01/21/2020 12:00:00 AM EST 1.0 {tablet_as_needed} active Sildenafil Citrate 50 MG eCW1 ([facility]) 0.5 ML dulaglutide 1.5 MG/ML Auto-Injector [Trulicity] Trulicity 0.75 MG/0.5ML Trulicity 0.75 MG/0.5ML 01/21/2020 12:00:00 AM EST active Trulicity 0.75 MG/0.5ML eCW1 ([facility]) 0.5 ML dulaglutide 1.5 MG/ML Auto-Injector [Trulicity] Trulicity 0.75 MG/0.5ML Trulicity 0.75 MG/0.5ML 01/21/2020 12:00:00 AM EST active Trulicity 0.75 MG/0.5ML eCW1 ([facility]) sildenafil 50 MG Oral Tablet Sildenafil Citrate 50 MG Silden afil Citrate 50 MG 01/21/2020 12:00:00 AM EST 1.0 {tablet_as_needed} active Sildenafil Citrate 50 MG eCW1 ([facility]) 0.5 ML dulaglutide 1.5 MG/ML Auto-Injector [Trulicity] Trulicity 0.75 MG/0.5ML Trulicity 0.75 MG/0.5ML 01/21/2020 12:00:00 AM EST active Trulicity 0.75 MG/0.5ML eCW1 ([facility]) 0.5 ML dulaglutide 1.5 MG/ML Auto-Injector [Trulicity] Trulicity 0.75 MG/0.5ML Trulicity 0.75 MG/0.5ML 01/21/2020 12:00:00 AM EST active Trulicity 0.75 MG/0.5ML eCW1 ([facility]) Insurance Providers Payer name Policy type / Coverage type Policy ID Covered democrat ID Covered democrat's relationship to arreola Policy [place] Plan Information BS [place] [employer] Part B [id number] Self YY [id number] BS [place] Med[employer] Part B [id number] Self [id number] BS [place] [id number] SP [id number] [place] (pr) Medigap Part B [id number] Family Dependent [id number] [place] (pr) Medigap Part B [id number] Family Dependent [id number] [place] (pr) Medigap Part B [id number] Family Dependent [id number] [place] (pr) Medigap Part B [id number] Family Dependent [id number] [place] (pr) Commercial [id number] Family Dependent [id number] [place] (pr) Medigap Part B [id number] Family Dependent [id number] [place] (pr) Medigap Part B [id number] Family Dependent [id number] [place] (pr) Commercial [id number] Family Dependent [place] (pr) Medigap Part B [id number] Family Dependent [id number] R [facility] [id number] HU[address] [id number] [facility] [id number] HU[address] [id number] [facility] [id number] Umr (pr) Commercial [id number] [facility] [id number] Commercial [id number] Family Dependent [id number] Umr (pr) Commercial [id number] Family Dependent [id number]-0660-9107-483090482e3v Umr (pr) Commercial 3xho758w-473l-4201-5037-61104409 3cb3 2.16.840.1.208647.3.227.99.991.1643.0 Family Dependent 8ibb941z-333n-5534-4128-662030336xl9 [facility] [id number] WI2 [id number] ANSI-Commercial r93j222z-2f24-36j8-t040-a78r6791wf14 c92k058i-8m79-40z6-m165-g08c6372ha04 ANSI-Commercial z8n0h831-6168-0t0s-v9c4-7yy80ziu11i0 e9e6t657-5982-4g7g-t2j0-2xc50ghj83d8 ANSI-Commercial 04lxu4u6-6048-6504-194y-01l496lh24j8 25jmb1w2-0352-5661-277t-77k770og98o2 ANSI-Commercial 45z21666-jtiu-5z42-0j53-1f44np2mx04s 84a14466-qwvo-4j01-6y60-0c02gr0ib34r ANSI-Commercial 2558r2u7-3344-10qz-a26b-30ce43q61436 3907m0s7-7563-57ze-a68n-84mx15g66416 ANSI-Commercial n8655443-d077-9d59-qxk4-lz24s323995m d9340846-r839-5k43-zqh6-qk83x723452o ANSI-Commercial 78137692-78ri-56h7-6618-03nz73t26b64 56729547-19ds-84h0-7823-32eb97o19r37 ANSI-Commercial 1dyy6104-0icg-1l84-7g97-t769p9090fw0 0bfz0978-1dtr-8c23-6r44-g989z0236jt2 ANSI-Commercial o61147d1-zj46-64bv-5309-011069d831o7 j05815r0-no12-66fl-2629-328253m668h1 ANSI-Commercial [id number] ANSI-Commercial [id number] ANSI-Commercial [id number] ANSI-Commercial [id number] ANSI-Commercial [id number] ANSI-Commercial [id number] ANSI-Commercial [id number] ANSI-Commercial [id number]-[id number]-[id number] ANSI-Commercial [id number] ANSI-Commercial [id number] [employer] [id number] WI2 [id number] [employer] [id number] WI2 [id number] [employer] PPO O [id number] P [id number] [employer] [id number] Family D[address] [id number] [facility] [id number] 2 [id number] [employer] (HMO) [id number] Family Dependent 910 [employer] PPO O [id number] O [id number] [employer] [id number] WI2 [id number] 0 [employer] [id number] SP [id number] [facility] [id number] SP [id number] [employer] [id number] WI[id number] [facility] [id number] WI2 [id number] R O [id number] S [id number] [facility] [id number] WI2 [id number] ANSI-Commercial [id number] ANSI-Commercial [id number] ANSI-Commercial [id number] ANSI-Commercial [id number] ANSI-Commercial [id number] ANSI-Commercial [id number] ANSI-Commercial [id number] ANSI-Commercial [id number]-[id number]-[id number] ANSI-Commercial [id number] ANSI-Commercial [id number] ANSI-Commercial [id number]-[id number] ANSI-Commercial [id number] ANSI-Commercial [id number] ANSI-Commercial [id number]-[id number]-[id number] ANSI-Commercial [id number] ANSI-Commercial [id number] [facility] [id number] [facility] [id number] ANSI-Commercial [id number] Problems, Conditions, and Diagnoses Code Display Name Description Problem Type Effective Dates Data Source(s) G56.02 [id number] Carpal tunnel syndrome of left wrist Prob james 09/12/2020 12:00:00 AM EDT eCW1 ([facility]) G47.33 23710381 LUBA (obstructive sleep apnea) Problem 07/20/2020 12:00:00 AM EDT eCW1 ([facility]) R41.3 [id number] Memory impairment Problem 06/14/2020 12:00:0 0 AM EDT eCW1 ([facility]) N52.9 [id number] Erectile dysfunction, unspecifie d erectile dysfunction type Problem 01/21/2020 12:00:00 AM EST eCW1 ([facility]) Surgeries/Procedures Procedure Description Date Indications Data Source(s) MRI SPINAL CANAL CERVICAL W/O CONTRAST MATRL 1 12:00:00 AM EST MEDENT ([facility], ) MRI SPINAL CANAL CERVICAL W/O CONTRAST MATRL 12:00:00 AM EST MEDENT ([facility], ) MRI SPINAL CANAL CERVICAL W/O CONTRAST MATRL 1 12:00:00 AM EST MEDENT ([facility], ) OFFICE OUTPATIENT VISIT 25 MINUTES 12/16/2020 12:00:00 AM EDT MEDENT ([facility], ) Needle electromyography, each extremity, with related paraspinal areas, when performed, done with nerve conduction, amplitude and latency/velocity study; complete, five or more muscles studied, innervated by three or more nerves or four or more spinal levels (list separately in addition to the code for primary procedure). 10/13/2020 12:00:00 AM EDT MEDEN T ([facility], ) Needle Electromyography Non Extremity Done With Nerve Conduc tion 10/13/2020 12:00:00 AM EDT MEDENT ([facility], ) Nerve Conduction 9-10 Studies 10/13/2020 12:00:00 AM E DT MEDENT ([facility], ) OFFICE OUTPATIENT VISIT 15 MINUTES 10/13/2020 12:00:00 AM EDT MEDENT ([facility], ) NON-INVASIVE PHYSIOLOGIC STUDY EXTREMITY 3 LEVLS 09/30 12:00:00 AM EDT MEDENT ([facility], ) NON-INVASIVE PHYSIOLOGIC STUDY EXTREMITY 3 LEVLS 09/30 12:00:00 AM EDT MEDENT ([facility], ) TSTG ANS FUNCJ CARDIOVAGAL INNERVAJ PARASYMP 12:00:00 AM EDT MEDENT ([facility], ) TESTING AUTONOMIC NERVOUS SYSTEM FUNCTION 09/30/2020 1 2:00:00 AM EDT MEDENT ([facility], ) OFFICE OUTPATIENT VISIT 25 MINUTES 09/29/2020 12:00:00 AM EDT MEDENT ([facility], ) MRI SPINAL CANAL LUMBAR W/O CONTRAST MATERIAL 08/28/19 21 12:00:00 AM EDT MEDENT ([facility], ) MRI SPINAL CANAL LUMBAR W/O CONTRAST MATERIAL 08/28/19 21 12:00:00 AM EDT MEDENT ([facility], ) MRI BRAIN BRAIN STEM W/O CONTRAST MATERIAL 08/27/2020 12:00:00 AM EDT MEDENT ([facility], ) MRI BRAIN BRAIN STEM W/O CONTRAST MATERIAL 08/27/2020 12:00:00 AM EDT MEDENT ([facility], ) MRI BRAIN BRAIN STEM W/O CONTRAST MATERIAL 08/27/2020 12:00:00 AM EDT MEDENT ([facility], ) MRI SPINAL CANAL LUMBAR W/O CONTRAST MATERIAL 08/28/19 12:00:00 AM EDT MEDENT ([facility], ) Needle electromyography, each extremity, with related paraspinal areas, when performed, done with nerve conduction, amplitude and latency/velocity study; complete, five or more muscles studied, innervated by three or more nerves or four or more spinal levels (list separately in addition to the code for primary procedure). 08/23/2020 12:00:00 AM EDT MEDEN T ([facility], ) Needle electromyography, each extremity, with related paraspinal areas, when performed, done with nerve conduction, amplitude and latency/velocity study; complete, five or more muscles studied, innervated by three or more nerves or four or more spinal levels (list separately in addition to the code for primary procedure). 08/23/2020 12:00:00 AM EDT MEDEN T ([facility], ) 95966 Nerve conduction studies 13 or more studies NEW 201208/23/2020 12:00:00 AM EDT MEDENT ([facility], ) ELECTROENCEPHALOGRAM W/REC AWAKE&ASLEEP 08/17/2020 12: 00:00 AM EDT MEDENT ([facility], ) ELECTROENCEPHALOGRAM W/REC AWAKE&ASLEEP 08/17/2020 12: 00:00 AM EDT MEDENT ([facility], ) OFFICE OUTPATIENT NEW 45 MINUTES 08/15/2020 12:00:00 A M EDT MEDENT ([facility], ) OFFICE CONSULTATION NEW/ESTAB PATIENT 60 MIN 12:00:00 AM EDT MEDENT ([facility], ) Results ID Date Data Source [id number] 11/10/2020 07:08:00 PM EDT [facility] Name Value Range Interpretation Code Description Data Hayley rce(s) Supporting Document(s) SARS coronavirus 2 RNA [Presence] in Res piratory specimen by LETA with probe detection [facility] This [facility] was ordered by [facility] and re ported by [facility]. ID Date Data Source [id number] 11/10/2020 03:08:00 PM EDT [facility] Name Value Range Interpretation Code Description Data Hayley rce(s) Supporting Document(s) SARS-CoV-2 POSITIVE [facility] This lab was ordered by [facility] and reported by [facility]. ID Date Data Source [id number] 11/10/2020 03:08:00 PM EDT [facility] Name Value Range Interpretation Code Description Data Hayley rce(s) Supporting Document(s) SARS-CoV-2 (COVID-19) variant [Type] in Specimen by Sequencing AY.24 [facility] This lab was ordered by [facility] [id number] and reported by [facility]. ID Date Data Source [id number] 02/23/2020 09:53:00 PM EST [facility] Name Value Range Interpretation Code Description Data Hayley rce(s) Supporting Document(s) SARS-CoV-2 (COVID 19) [facility] This lab was ordered by [facility] a nd reported by [facility]. Procedure Social History Code Duration Value Status Description Data Source(s ) Smoking 09/12/2020 12:00:00 AM EDT Never Smoker completed Never S moker eCW1 ([facility]) Smoking 09/12/2020 12:00:00 AM EDT Never Smoker completed Never S moker eCW1 ([facility]) Smoking 09/12/2020 12:00:00 AM EDT Never Smoker completed Never S moker eCW1 ([facility]) Smoking 09/12/2020 12:00:00 AM EDT Never Smoker completed Never S moker eCW1 ([facility]) Smoking 09/12/2020 12:00:00 AM EDT Never Smoker completed Never S moker eCW1 ([facility]) Smoking 09/12/2020 12:00:00 AM EDT Never Smoker completed Never S moker eCW1 ([facility]) Smoking 09/12/2020 12:00:00 AM EDT Never Smoker completed Never S moker eCW1 ([facility]) Smoking 09/12/2020 12:00:00 AM EDT Never Smoker completed Never S moker eCW1 ([facility]) Smoking 07/20/2020 12:00:00 AM EDT Never Smoker completed Never S moker eCW1 ([facility]) Smoking 07/20/2020 12:00:00 AM EDT Never Smoker completed Never S moker eCW1 ([facility]) Smoking 07/20/2020 12:00:00 AM EDT Never Smoker completed Never S moker eCW1 ([facility]) Smoking 06/14/2020 12:00:00 AM EDT Never Smoker completed Never S moker eCW1 ([facility]) Smoking 06/14/2020 12:00:00 AM EDT Never Smoker completed Never S moker eCW1 ([facility]) Smoking 04/26/2020 12:00:00 AM EST Never Smoker completed Never S moker eCW1 ([facility]) Smoking 01/21/2020 12:00:00 AM EST Never Smoker completed Never S moker eCW1 ([facility]) Smoking 01/21/2020 12:00:00 AM EST Never Smoker completed Never S moker eCW1 ([facility]) Smoking 01/21/2020 12:00:00 AM EST Never Smoker completed Never S moker eCW1 ([facility]) Smoking 01/21/2020 12:00:00 AM EST Never Smoker completed Never S moker eCW1 ([facility]) Smoking 01/21/2020 12:00:00 AM EST Never Smoker completed Never S moker eCW1 ([facility]) Vital Signs ID Date Data Source UNK Name Value Range Interpretation Code Description Data Source(s) Systolic blood pressure 120 mm[Hg] 120 mm[Hg] M EDSCOTT ([facility], ) Diastolic blood pressure 78 mm[Hg] 78 mm[Hg] MEDENT ([facility], ) Heart rate 71 /min 71 /min [facility] ([facility], ) Oxygen saturation in Arterial blood by Pulse oximetry 98 % 98 % DEIRDRE ([facility], ) Body height 73 [in_i] 73 [in_i] DEIRDRE ([facility], ) 6'1" Body weight 251.00 [lb_av] 251.00 [lb_av] ANIL Upton ([facility]) Body mass index (BMI) [Ratio] 33.1 kg/m2 33.1 k g/m2 [facility] ([facility]) [place] body weight 184 [lb_av] 184 [lb_av] [facility] Body weight 113.854 kg 113.854 kg [facility] ([facility]) Body surface area Derived from formula 2.37 m2 2.37 m2 [facility] ([facility]) Body weight 257.6 [lb_av] 257.6 [lb_av] eCW1 ([facility]) Body height 71 [in_i] 71 [in_i] eCW1 ([facility]) Body mass index (BMI) [Ratio] 35.92 kg/m2 35.92 kg/m2 eCW1 ([facility]) Heart rate 61 /min 61 /min eCW1 ([facility]) Respiratory rate 17 /min 17 /min eCW1 ([facility]) Body temperature 98.3 [degF] 98.3 [degF] eCW1 ( [facility]) Systolic blood pressure 136 mm[Hg] 136 mm[Hg] e CW1 ([facility]) Diastolic blood pressure 80 mm[Hg] 80 mm[Hg] eCW1 ([facility]) Respiratory rate 17 /min 17 /min eCW1 ([facility]) Body weight 260 [lb_av] 260 [lb_av] eCW1 ([facility]) Body height 71 [in_i] 71 [in_i] eCW1 ([facility]) Body mass index (BMI) [Ratio] 36.26 kg/m2 36.26 kg/m2 eCW1 ([facility]) Heart rate 69 /min 69 /min eCW1 ([facility]) Body temperature 97.8 [degF] 97.8 [degF] eCW1 ( [facility]) Systolic blood pressure 128 mm[Hg] 128 mm[Hg] e CW1 ([facility]) Diastolic blood pressure 80 mm[Hg] 80 mm[Hg] eCW1 ([facility]) Systolic blood pressure 124 mm[Hg] 124 mm[Hg] e CW1 ([facility]) Diastolic blood pressure 77 mm[Hg] 77 mm[Hg] eCW1 ([facility]) Body weight 260 [lb_av] 260 [lb_av] eCW1 ([facility]) Body height 71 [in_i] 71 [in_i] eCW1 ([facility]) Body mass index (BMI) [Ratio] 36.26 kg/m2 36.26 kg/m2 eCW1 ([facility]) Heart rate 72 /min 72 /min eCW1 ([facility]) Respiratory rate 17 /min 17 /min eCW1 ([facility]) Body temperature 97.6 [degF] 97.6 [degF] eCW1 ( [facility]) Body weight 261 [lb_av] 261 [lb_av] eCW1 ([facility]) Body height 71 [in_i] 71 [in_i] eCW1 ([facility]) Body mass index (BMI) [Ratio] 36.40 kg/m2 36.40 kg/m2 eCW1 ([facility]) Heart rate 76 /min 76 /min eCW1 ([facility]) Respiratory rate 16 /min 16 /min eCW1 ([facility]) Body temperature 97.8 [degF] 97.8 [degF] eCW1 ( [facility]) Systolic blood pressure 138 mm[Hg] 138 mm[Hg] e CW1 ([facility]) Diastolic blood pressure 71 mm[Hg] 71 mm[Hg] eCW1 ([facility]) Body weight 263 [lb_av] 263 [lb_av] eCW1 ([facility]) Systolic blood pressure 142 mm[Hg] 142 mm[Hg] e CW1 ([facility]) Respiratory rate 16 /min 16 /min eCW1 ([facility]) Diastolic blood pressure 93 mm[Hg] 93 mm[Hg] eCW1 ([facility]) Body temperature 98.4 [degF] 98.4 [degF] eCW1 ( [facility]) Body height 71 [in_i] 71 [in_i] eCW1 ([facility]) Body mass index (BMI) [Ratio] 36.68 kg/m2 36.68 kg/m2 eCW1 ([facility]) Heart rate 71 /min 71 /min eCW1 ([facility]) Patient Treatment Plan of Care Planned Activity Planned Date Details Description Data Source (s) Elbow Brace - 09/12/2020 12:00:00 AM EDT eCW1 ([facility]) Wrist Brace - 09/12/2020 12:00:00 AM EDT eCW1 ([facility]) Elbow Brace - 09/12/2020 12:00:00 AM EDT eCW1 ([facility]) Wrist Brace - 09/12/2020 12:00:00 AM EDT eCW1 ([facility]) Elbow Brace - 09/12/2020 12:00:00 AM EDT eCW1 ([facility]) Wrist Brace - 09/12/2020 12:00:00 AM EDT eCW1 ([facility]) Elbow Brace - 09/12/2020 12:00:00 AM EDT eCW1 ([facility]) Wrist Brace - 09/12/2020 12:00:00 AM EDT eCW1 ([facility]) Elbow Brace - 09/12/2020 12:00:00 AM EDT eCW1 ([facility]) Wrist Brace - 09/12/2020 12:00:00 AM EDT eCW1 ([facility]) Elbow Brace - 09/12/2020 12:00:00 AM EDT eCW1 ([facility]) Wrist Brace - 09/12/2020 12:00:00 AM EDT eCW1 ([facility]) Wrist Brace - 09/12/2020 12:00:00 AM EDT eCW1 ([facility]) Elbow Brace - 09/12/2020 12:00:00 AM EDT eCW1 ([facility]) Wrist Brace - 09/12/2020 12:00:00 AM EDT eCW1 ([facility]) Elbow Brace - 09/12/2020 12:00:00 AM EDT eCW1 ([facility]) 0.5 ML dulaglutide 3 MG/ML Auto-Injector [Trulicity] 021 12:00:00 AM EDT eCW1 ([facility]) 0.5 ML dulaglutide 3 MG/ML Auto-Injector [Trulicity] 12:00:00 AM EDT eCW1 ([facility]) 0.5 ML dulaglutide 3 MG/ML Auto-Injector [Trulicity] 12:00:00 AM EDT eCW1 ([facility]) 0.5 ML dulaglutide 3 MG/ML Auto-Injector [Trulicity] 021 12:00:00 AM EDT eCW1 ([facility]) 0.5 ML dulaglutide 3 MG/ML Auto-Injector [Trulicity] 021 12:00:00 AM EDT eCW1 ([facility]) 0.5 ML dulaglutide 3 MG/ML Auto-Injector [Trulicity] 021 12:00:00 AM EDT eCW1 ([facility]) 0.5 ML dulaglutide 3 MG/ML Auto-Injector [Trulicity] 021 12:00:00 AM EDT eCW1 ([facility]) 0.5 ML dulaglutide 3 MG/ML Auto-Injector [Trulicity] 021 12:00:00 AM EDT eCW1 ([facility]) Rosuvastatin calcium 20 MG Oral Tablet [Crestor] 04/26/2020 12:00:0 0 AM EST eCW1 ([facility]) Rosuvastatin calcium 20 MG Oral Tablet [Crestor] 04/26/2020 12:00:0 0 AM EST eCW1 ([facility]) Rosuvastatin calcium 20 MG Oral Tablet [Crestor] 04/26/2020 12:00:0 0 AM EST eCW1 ([facility]) Rosuvastatin calcium 20 MG Oral Tablet [Crestor] 04/26/2020 12:00:0 0 AM EST eCW1 ([facility]) 0.5 ML dulaglutide 1.5 MG/ML Auto-Injector [Trulicity] 01/21/2020 12:00:00 AM EST eCW1 ([facility]) sildenafil 50 MG Oral Tablet 01/21/2020 12:00:00 AM EST eCW1 ([facility]) 0.5 ML dulaglutide 1.5 MG/ML Auto-Injector [Trulicity] 01/21/2020 12:00:00 AM EST eCW1 ([facility]) sildenafil 50 MG Oral Tablet 01/21/2020 12:00:00 AM EST eCW1 ([facility]) sildenafil 50 MG Oral Tablet 01/21/2020 12:00:00 AM EST eCW1 ([facility]) 0.5 ML dulaglutide 1.5 MG/ML Auto-Injector [Trulicity] 01/21/2020 12:00:00 AM EST eCW1 ([facility]) 0.5 ML dulaglutide 1.5 MG/ML Auto-Injector [Trulicity] 01/21/2020 12:00:00 AM EST eCW1 ([facility]) sildenafil 50 MG Oral Tablet 01/21/2020 12:00:00 AM EST eCW1 ([facility]) 0.5 ML dulaglutide 1.5 MG/ML Auto-Injector [Trulicity] 01/21/2020 12:00:00 AM EST eCW1 ([facility]) sildenafil 50 MG Oral Tablet 01/21/2020 12:00:00 AM EST eCW1 ([facility])
--- OUTSIDE RECORDS SUMMARY | 2021-01-09 01:10 | CCD | Continuity of Care Document ---
Author Massimo Long M.D. Organization Unknown Address [address] [place] [id number] Phone [phone] Care Team Providers Care Body Press Operator Name Role Phone David Reyes M.D. AUTM [phone] Problems Description No Information Available Social History Type Date Description Comments Sex Unknown Allergies, Adverse Reactions, Alerts Description No Information Available Medications Active Medications SIG Qnty Indications Ordering Provide r Date Neurontin 100mg Capsules 1 by mouth three times a day 90caps Elizabeth Maher M.D. 10/13/2020 Immunizations Description No Information Available Vital Signs Description No Information Available Results Description No Information Available Procedures Date Code Description Status 10/13/2020 65168 Needle Electromyogra phy Non Extremity Done With Nerve Conduction Completed 10/13/2020 29044 Needle Electromyography Complete , Five Or More Muscles Studied Completed 10/13/2020 38326 Nerve Conduction 9-10 Studies Co mpleted 09/30/2020 91776 Sympathetic Skin Responses Compl eted 09/30/2020 57536 Test Autonomic Nervous System, C ardiovagal Innervation Completed 09/30/2020 74129 Artery Study Extremity Mult Leve ls Bilateral Completed 09/30/2020 26212 Artery Study Extremity Mult Leve ls Bilateral Completed 09/29/2020 40010 Office/Outpatient Established Mo d MDM 30-39 Min Completed 08/27/2020 58644 MRI Spine Lumbar W/O Contrast Co mpleted 08/27/2020 77486 MRI Brain W/O Contrast Completed 08/27/2020 37717 MRI Brain W/O Contrast Completed 08/27/2020 80515 MRI Brain W/O Contrast Completed 08/27/2020 65383 MRI Spine Lumbar W/O Contrast Co mpleted 08/27/2020 02344 MRI Spine Lumbar W/O Contrast Co mpleted 08/23/2020 89887 Nerve Conduction 13+ Studies Com pleted 08/23/2020 75276 Needle Electromyography Complete , Five Or More Muscles Studied Completed 08/23/2020 36731 Needle Electromyography Complete , Five Or More Muscles Studied Completed 08/17/2020 12685 EEG Recording Awake & Asleep Com pleted 08/17/2020 79731 EEG Recording Awake & Asleep Com pleted 08/15/2020 05800 Office/Outpatient New Moderate M DM 45-59 Minutes Completed Medical Devices Description No Information Available Encounters Type Date Location Provider Dx Diagnosis Office Visit 09/29/2020 9:45a Main office - Barlowge[place] Maher M.D. M79.602 Pain in left arm G47.51 Confusional arousals E11.40 Type 2 diabetes mellitus wit h diabetic neuropathy, unsp M47.897 Other spondylosis, lumbosacr al region R41.3 Other amnesia M54.2 Cervicalgia R20.2 Paresthesia of skin R26.9 Unspecified abnormalities of gait and mobility Office Visit 08/15/2020 2:30p Main office - [place] Maher M.D. R25.8 Other abnormal involuntary movements M54.5 Low back pain R41.3 Other amnesia M62.9 Disorder of muscle, unspecif ied Assessments Date Code Description Provider 10/13/2020 G56.02 Carpal tunnel syndrome, left upp er limb Elizabeth GunnarDorian olivas 10/13/2020 G56.00 Carpal tunnel syndrome, unspecif ied upper limb Elizabeth GunnarDorian olivas 10/13/2020 M54.12 Radiculopathy, cervical region A bdlaine Maher M.D. 10/13/2020 M54.2 Cervicalgia Pepe Arango 10/13/2020 R20.2 Paresthesia of skin Elizabeth Maher M.D. 09/30/2020 G60.8 Other hereditary and idiopathic neuropathies Aria Maher M.D. 09/30/2020 G60.8 Other hereditary and idiopathic neuropathies Ans/VS 09/30/2020 I70.228 Atherosclerosis of n ative arteries of extremities with rest pain, other extremity Aria Gunnar, M.D. 09/30/2020 I70.228 Atherosclerosis of n ative arteries of extremities with rest pain, other extremity Ans/VS 09/29/2020 M79.602 Pain in left arm Aria Gunnar, M .D. 09/29/2020 G47.51 Confusional arousals Ariaus Carline middleton M.D. 09/29/2020 E11.40 Type 2 diabetes bob itus with diabetic neuropathy, unspecified Aria Gunnar, M.D. 09/29/2020 M47.897 Other spondylosis, lumbosacral r egion Aria Gunnar, M.DJohny 09/29/2020 R41.3 Other amnesia Aria Gunnar, M. DJohny 09/29/2020 M54.2 Cervicalgia Aria Gunnar, M. DJohny 09/29/2020 R20.2 Paresthesia of skin Aria Gunnar , M.DJohny 09/29/2020 R26.9 Unspecified abnormalities of gai t and mobility Aria Gunnar, M.DJohny 08/27/2020 M54.5 Low back pain Mahamed Loving [...] 08/27/2020 R41.3 Other amnesia Elizabeth Gunnar, M.D Johny 08/27/2020 R41.3 Other amnesia MRI 08/23/2020 M79.606 [...] 08/17/2020 R41.3 Other amnesia Aria Gunnar, M. DJohny 08/17/2020 R41.3 Other amnesia EEG 08/15/2020 R25.8 Other abnormal involuntary movem ents Aria Gunnar, M.DJohny 08/15/2020 M54.5 Low back pain Aria Gunnar, M. DJohny 08/15/2020 R41.3 Other amnesia Aria Gunnar, M. DJohny 08/15/2020 M62.9 Disorder of muscle, unspecified Aria Maher M.D. Plan of Treatment Future Appointment(s):* 12/16/2020 8:30 am - Aria Maher M.D. at Main office [facility] Functional Status Description No Information Available Mental Status Description No Information Available Referrals Refer to Reason for Referral Status Appt Date Created
--- OUTSIDE RECORDS SUMMARY | 2021-01-09 01:10 | CCD | Continuity of Care Document ---
Author Massimo Long M.D. Organization Unknown Address [address] [place] [id number] Phone [phone] Care Team Providers Care Fire Pot Operator Name Role Phone David Reyes M.D. AUTM [phone] Problems Description No Information Available Social History [...] Information Available Procedures Date Code Description Status 09/30/2020 28581 Test Autonomic Nervous System, C ardiovagal Innervation Completed 09/30/2020 43274 Artery Study Extremity Mult Leve ls Bilateral Completed 09/30/2020 70337 Artery Study Extremity Mult Leve ls Bilateral Completed 09/30/2020 23880 Sympathetic Skin Responses Compl eted 09/29/2020 32273 Office/Outpatient Established Mo d MDM 30-39 Min Completed 08/27/2020 17705 MRI Brain W/O Contrast Completed 08/27/2020 73493 MRI Brain W/O Contrast Completed 08/27/2020 20253 MRI Brain W/O Contrast Completed 08/27/2020 80882 MRI Spine Lumbar W/O Contrast Co mpleted 08/27/2020 34986 MRI Spine Lumbar W/O Contrast Co mpleted 08/27/2020 40820 MRI Spine Lumbar W/O Contrast Co mpleted 08/23/2020 22576 Nerve Conduction 13+ Studies Com pleted 08/23/2020 46258 Needle Electromyography Complete , Five Or More Muscles Studied Completed 08/23/2020 10055 Needle Electromyography Complete , Five Or More Muscles Studied Completed 08/17/2020 91012 EEG Recording Awake & Asleep Com pleted 08/17/2020 06395 EEG Recording Awake & Asleep Com pleted 08/15/2020 27355 Office/Outpatient New Moderate M DM 45-59 Minutes Completed Medical Devices Description No Information Available Encounters Type Date Location Provider Dx Diagnosis Office Visit 09/29/2020 9:45a Main office - [place] Aria Maher M.D. M79.602 Pain in left arm G47.51 Confusional arousals E11.40 Type 2 diabetes mellitus wit h diabetic neuropathy, unsp M47.897 Other spondylosis, lumbosacr al region R41.3 Other amnesia M54.2 Cervicalgia R20.2 Paresthesia of skin R26.9 Unspecified abnormalities of gait and mobility Office Visit 08/15/2020 2:30p Main office - [place] Maher M.D. R25.8 Other abnormal involuntary movements M54.5 Low back pain R41.3 Other amnesia M62.9 Disorder of muscle, unspecif ied Assessments Date Code Description Provider 09/30/2020 G60.8 Other hereditary and idiopathic neuropathies Aria Maher M.D. 09/30/2020 G60.8 Other hereditary and idiopathic neuropathies Ans/VS 09/30/2020 I70.228 Atherosclerosis of n ative arteries of extremities with rest pain, other extremity Aria Maher M.D. 09/30/2020 I70.228 Atherosclerosis of n ative arteries of extremities with rest pain, other extremity Ans/VS 09/29/2020 M79.602 Pain in left arm Donnell Meier 09/29/2020 G47.51 Confusional arousals Aria middleton M.D. 09/29/2020 E11.40 Type 2 diabetes bob itus with diabetic neuropathy, unspecified Aria Maher M.D. 09/29/2020 M47.897 Other spondylosis, lumbosacral r egion Aria Maher M.D. 09/29/2020 R41.3 Other amnesia Sergio Meier 09/29/2020 M54.2 Cervicalgia Aria Gunnar, M. D. [...] Essential tremor EEG 08/17/2020 R41.3 Other amnesia Sergio Meier 08/17/2020 R41.3 Other amnesia EEG 08/15/2020 R25.8 Other abnormal involuntary movem ents Aria Maher M.D. 08/15/2020 M54.5 Low back pain Sergio Meier 08/15/2020 R41.3 Other amnesia Sergio Meier 08/15/2020 M62.9 Disorder of muscle, unspecified Aria Maher M.D. Plan of Treatment Future Appointment(s):* 12/16/2020 8:30 am - Aria Maher M.D. at Main office - [place] Functional Status Description No Information Available Mental Status Description No Information Available Referrals Refer to Reason for Referral Status Appt Date Created
[2021-01-09] MEDS ORDERED: GABA-1171 PO (01:12)
[2021-01-09] MEDS ORDERED: FLUO5OI TOP (01:12)
[2021-01-09] MEDS ORDERED: CRES20TA2 PO (01:12)
[2021-01-09] MEDS ORDERED: KETOROLAC 30 MG/ML 1ML VIAL IV ONE (07:35)
[2021-01-09] MEDS ORDERED: ONDANSETRON 4MG/2ML VIAL IV ONE (07:35)
[2021-01-09] MEDS ORDERED: NS 1,000 ML IV ONE (07:35)
--- OUTSIDE RECORDS SUMMARY | 2021-01-09 07:45 | CCD ---
Author Author [facility] Organization [facility] Address Unknown Phone Unavailable Care Team Providers Care Clinical Staff Pharmacist Name Role Phone DENIS ARZATE MD Unavailable [...] DENIS MD Unavailable Unavailable JENNIFER, LEWIS OSITO PRODUCE SERVICE TEAM MEMBER-C Unavailable Unavailable JENNIFER, LEWIS OSITO PRODUCE SERVICE TEAM MEMBER-C Unavailable Unavailable JENNIFER, LEWIS OSITO PRODUCE SERVICE TEAM MEMBER-C Unavailable Unavailable JENNIFER, LEWIS OSITO PRODUCE SERVICE TEAM MEMBER-C Unavailable Unavailable JENNIFER, LEWIS OSITO PRODUCE SERVICE TEAM MEMBER-C Unavailable Unavailable JENNIFER, LEWIS OSITO PRODUCE SERVICE TEAM MEMBER-C Unavailable Unavailable JENNIFER, LEWIS OSITO PRODUCE SERVICE TEAM MEMBER-C Unavailable Unavailable JENNIFER, LEWIS OSITO PRODUCE SERVICE TEAM MEMBER-C Unavailable Unavailable JENNIFER, LEWIS OSITO PRODUCE SERVICE TEAM MEMBER-C Unavailable Unavailable JENNIFER, LEWIS OSITO PRODUCE SERVICE TEAM MEMBER-C Unavailable Unavailable JENNIFER, LEWIS OSITO PRODUCE SERVICE TEAM MEMBER-C Unavailable Unavailable JENNIFER, LEWIS OSITO PRODUCE SERVICE TEAM MEMBER-C Unavailable Unavailable JENNIFER, LEWIS OSITO PRODUCE SERVICE TEAM MEMBER-C Unavailable Unavailable JENNIFER, LEWIS OSITO PRODUCE SERVICE TEAM MEMBER-C Unavailable Unavailable JENNIFER, LEWIS OSITO PRODUCE SERVICE TEAM MEMBER-C Unavailable Unavailable JENNIFER, LEWIS OSITO PRODUCE SERVICE TEAM MEMBER-C Unavailable Unavailable JENNIFER, LEWIS OSITO PRODUCE SERVICE TEAM MEMBER-C Unavailable Unavailable Re-disclosure Warning The records that [...] is protected by Article 27-F of the [facility] Public Health law. If you continue you may have access to information: Regarding HIV / AIDS; Provided by facilities licensed or operated by the [facility] Office of Mental Health; or Provided by the [facility] Office for People With Developmental Disabilities. If such information is present, then the following [facility] mandated warning applies: This information [...] law may result in a fine or penitentiary sentence or both. A general authorization for the release of medical or other information is NOT sufficient authorization for further disc losure. Family History Family Member Name Family Member Gender Family Member Status Date o f Status Description Data Source(s) Unknown Unknown Problem MEDENT ([facility] ) Unknown Male Problem MEDENT ([facility] () Unknown Female Problem MEDENT ([facility]) Unknown Female Problem MEDENT ([facility] ) Encounters Encounter Providers Location Date Indications Data Source(s ) Outpatient Attender: DENIS ARZATE MD Main office [facility] 12/16/2020 08:30:00 AM EDT MEDENT ([facility]) Unknown [address] [address] 11/15/2020 12:00:00 AM EDT eCW1 ([facility] Unknown [address] [address] 11/15/2020 12:00:00 AM EDT eCW1 ([facility]) Unknown [address] [address] 11/03/2020 12:00:00 AM EDT eCW1 ([facility]) Unknown [address] [address] 10/26/2020 12:00:00 AM EDT eCW1 ([facility]) Unknown [address] [facility] [place] [address] 10/17/2020 12:00:00 AM EDT eCW1 ([facility]) Outpatient Attender: OSITO Solano/Charissa/Otilio/R maribel 10/13/2020 09:45:00 AM EDT MEDENT ([facility] Flako orantes, [place]) [place] [address] [facility] [address] 10/12/2020 12:00:00 AM EDT eCW1 ([facility]) Outpatient Attender: DENIS ARZATE MD Main office - [facility] 09/29/2020 09:45:00 AM EDT MEDENT ([facility] RENA Hanson) [place] [address] [facility] [address] 09/12/2020 12:00:00 AM EDT eCW1 ([facility]) [place] [address] [facility] [address] 09/12/2020 12:00:00 AM EDT eCW1 ([facility]) [place] [address] [facility] [address] 08/29/2020 12:00:00 AM EDT eCW1 ([facility]) Outpatient Attender: DENIS ARZATE MD Main office - [facility] 08/15/2020 02:30:00 PM EDT MEDENT ([facility] RENA Hanson) [place] [address] [facility] [address] 07/27/2020 12:00:00 AM EDT eCW1 ([facility]) [place] [address] [facility] [address] 07/20/2020 12:00:00 AM EDT eCW1 ([facility]) [place] [address] [facility] [address] 06/14/2020 12:00:00 AM EDT eCW1 ([facility]) [place] [address] [facility] [address] 06/10/2020 12:00:00 AM EDT eCW1 ([facility]) [place] [address] [facility] [address] 04/26/2020 12:00:00 AM EST eCW1 ([facility]) [place] [address] [facility] [address] 04/04/2020 12:00:00 AM EST eCW1 ([facility]) [place] [address] [facility] [place] [address] 03/03/2020 12:00:00 AM EST eCW1 ([facility]) [place] [address] [facility] [address] 01/29/2020 12:00:00 AM EST eCW1 ([facility]) [place] [address] [facility] [address] 01/21/2020 12:00:00 AM EST eCW1 ([facility]) [place] [address] [facility] [place] [address] 01/21/2020 12:00:00 AM EST eCW1 ([facility]) [place] [address] [facility] [address] 01/13/2020 12:00:00 AM EST eCW1 ([facility]) Immunizations Vaccine Date Status Description Data Source(s) COVID-19 dose #2 given elsewhere Unspecified 05/11/2020 11:2 6:00 AM EDT completed eCW1 ([facility]) Pfizer #2 dose COVID-19(given elsewhere) SARSCOV2 VAC 30MCG/0.3ML IM 05/11/2020 08:06:00 AM EDT completed eCW1 ([facility]) Pfizer #2 dose COVID-19(given elsewhere) SARSCOV2 VAC 30MCG/0.3ML IM 05/11/2020 08:06:00 AM EDT completed eCW1 ([facility]) Pfizer #2 dose COVID-19(given elsewhere) SARSCOV2 VAC 30MCG/0.3ML IM 05/11/2020 08:06:00 AM EDT completed eCW1 ([facility]) Pfizer #2 dose COVID-19(given elsewhere) SARSCOV2 VAC 30MCG/0.3ML IM 05/11/2020 08:06:00 AM EDT completed eCW1 ([facility]) Pfizer #2 dose COVID-19(given elsewhere) SARSCOV2 VAC 30MCG/0.3ML IM 05/11/2020 08:06:00 AM EDT completed eCW1 ([facility]) Pfizer #2 dose COVID-19(given elsewhere) SARSCOV2 VAC 30MCG/0.3ML IM 05/11/2020 08:06:00 AM EDT completed eCW1 ([facility]) Pfizer #2 dose COVID-19(given elsewhere) SARSCOV2 VAC 30MCG/0.3ML IM 05/11/2020 08:06:00 AM EDT completed eCW1 ([facility]) Pfizer #2 dose COVID-19(given elsewhere) SARSCOV2 VAC 30MCG/0.3ML IM 05/11/2020 08:06:00 AM EDT completed eCW1 ([facility]) Pfizer #2 dose COVID-19(given elsewhere) SARSCOV2 VAC 30MCG/0.3ML IM 05/11/2020 08:06:00 AM EDT completed eCW1 ([facility]) Pfizer #2 dose COVID-19(given elsewhere) SARSCOV2 VAC 30MCG/0.3ML IM 05/11/2020 08:06:00 AM EDT completed eCW1 ([facility]) Pfizer #2 dose COVID-19(given elsewhere) SARSCOV2 VAC 30MCG/0.3ML IM 05/11/2020 08:06:00 AM EDT completed eCW1 ([facility]) COVID-19 VACCINE Pfizer 05/11/2020 12:00:00 AM EDT completed [employer] Vaccine Series Complete: YESThis Data wa s Submitted to [facility] Via [employer]SIIS. COVID-19 dose #1 given elsewhere Unspecified 04/21/2020 11:2 5:00 AM EST completed eCW1 ([facility]) Pfizer #1 dose COVID-19(given elsewhere) SARSCOV2 VAC 30MCG/0.3ML IM 04/20/2020 08:06:00 AM EST completed eCW1 ([facility]) Pfizer #1 dose COVID-19(given elsewhere) SARSCOV2 VAC 30MCG/0.3ML IM 04/20/2020 08:06:00 AM EST completed eCW1 ([facility]) Pfizer #1 dose COVID-19(given elsewhere) SARSCOV2 VAC 30MCG/0.3ML IM 04/20/2020 08:06:00 AM EST completed eCW1 ([facility]) Pfizer #1 dose COVID-19(given elsewhere) SARSCOV2 VAC 30MCG/0.3ML IM 04/20/2020 08:06:00 AM EST completed eCW1 ([facility]) Pfizer #1 dose COVID-19(given elsewhere) SARSCOV2 VAC 30MCG/0.3ML IM 04/20/2020 08:06:00 AM EST completed eCW1 ([facility]) Pfizer #1 dose COVID-19(given elsewhere) SARSCOV2 VAC 30MCG/0.3ML IM 04/20/2020 08:06:00 AM EST completed eCW1 ([facility]) Pfizer #1 dose COVID-19(given elsewhere) SARSCOV2 VAC 30MCG/0.3ML IM 04/20/2020 08:06:00 AM EST completed eCW1 ([facility]) Pfizer #1 dose COVID-19(given elsewhere) SARSCOV2 VAC 30MCG/0.3ML IM 04/20/2020 08:06:00 AM EST completed eCW1 ([facility]) Pfizer #1 dose COVID-19(given elsewhere) SARSCOV2 VAC 30MCG/0.3ML IM 04/20/2020 08:06:00 AM EST completed eCW1 ([facility]) Pfizer #1 dose COVID-19(given elsewhere) SARSCOV2 VAC 30MCG/0.3ML IM 04/20/2020 08:06:00 AM EST completed eCW1 ([facility]) Pfizer #1 dose COVID-19(given elsewhere) SARSCOV2 VAC 30MCG/0.3ML IM 04/20/2020 08:06:00 AM EST completed eCW1 ([facility]) COVID-19 VACCINE Pfizer 04/20/2020 12:00:00 AM EST completed [employer] Vaccine Series Complete: NOThis Data was Submitted to [facility] Via inexio. Medications Medication Brand Name Start Date Product Form Dose Route Admi nistrative Instructions Pharmacy Instructions Status Indications Reaction Description Data Source(s) gabapentin 100 MG Oral Capsule [Neurontin] Neurontin 10/13 12:00:00 AM EDT ORAL active MEDENT ( [facility] ) Elbow Brace - Elbow Brace - 09/12/2020 12:00:00 AM EDT active Elbow Brace - eCW1 ([facility]) Elbow Brace - Elbow Brace - 09/12/2020 12:00:00 AM EDT active Elbow Brace - eCW1 ([facility]) Wrist Brace - Wrist Brace - 09/12/2020 12:00:00 AM EDT active Wrist Brace - eCW1 ([facility]) Elbow Brace - Elbow Brace - 09/12/2020 12:00:00 AM EDT active Elbow Brace - eCW1 ([facility]) Elbow Brace - Elbow Brace - 09/12/2020 12:00:00 AM EDT active Elbow Brace - eCW1 ([facility]) Wrist Brace - Wrist Brace - 09/12/2020 12:00:00 AM EDT active Wrist Brace - eCW1 ([facility]) Wrist Brace - Wrist Brace - 09/12/2020 12:00:00 AM EDT active Wrist Brace - eCW1 ([facility]) Elbow Brace - Elbow Brace - 09/12/2020 12:00:00 AM EDT active Elbow Brace - eCW1 ([facility]) Elbow Brace - Elbow Brace - 09/12/2020 12:00:00 AM EDT active Elbow Brace - eCW1 ([facility]) Wrist Brace - Wrist Brace - 09/12/2020 12:00:00 AM EDT active Wrist Brace - eCW1 ([facility]) Wrist Brace - Wrist Brace - 09/12/2020 12:00:00 AM EDT active Wrist Brace - eCW1 ([facility]) Wrist Brace - Wrist Brace - 09/12/2020 12:00:00 AM EDT active Wrist Brace - eCW1 ([facility]) Elbow Brace - Elbow Brace - 09/12/2020 12:00:00 AM EDT active Elbow Brace - eCW1 ([facility]) Wrist Brace - Wrist Brace - 09/12/2020 12:00:00 AM EDT active Wrist Brace - eCW1 ([facility]) Elbow Brace - Elbow Brace - 09/12/2020 12:00:00 AM EDT active Elbow Brace - eCW1 ([facility]) Wrist Brace - Wrist Brace - 09/12/2020 12:00:00 AM EDT active Wrist Brace - eCW1 ([facility]) 0.5 ML dulaglutide 3 MG/ML Auto-Injector [Trulicity] T rulicity 1.5 MG/0.5ML Trulicity 1.5 MG/0.5ML 07/20/2020 12:00:00 AM EDT active Trulicity 1.5 MG/0.5ML eCW1 ([facility]) 0.5 ML dulaglutide 3 MG/ML Auto-Injector [Trulicity] T rulicity 1.5 MG/0.5ML Trulicity 1.5 MG/0.5ML 07/20/2020 12:00:00 AM EDT active Trulicity 1.5 MG/0.5ML eCW1 ([facility]) 0.5 ML dulaglutide 3 MG/ML Auto-Injector [Trulicity] T rulicity 1.5 MG/0.5ML Trulicity 1.5 MG/0.5ML 07/20/2020 12:00:00 AM EDT active Trulicity 1.5 MG/0.5ML eCW1 ([facility]) 0.5 ML dulaglutide 3 MG/ML Auto-Injector [Trulicity] T rulicity 1.5 MG/0.5ML Trulicity 1.5 MG/0.5ML 07/20/2020 12:00:00 AM EDT active Trulicity 1.5 MG/0.5ML eCW1 ([facility]) 0.5 ML dulaglutide 3 MG/ML Auto-Injector [Trulicity] T rulicity 1.5 MG/0.5ML Trulicity 1.5 MG/0.5ML 07/20/2020 12:00:00 AM EDT active Trulicity 1.5 MG/0.5ML eCW1 ([facility]) 0.5 ML dulaglutide 3 MG/ML Auto-Injector [Trulicity] T rulicity 1.5 MG/0.5ML Trulicity 1.5 MG/0.5ML 07/20/2020 12:00:00 AM EDT active Trulicity 1.5 MG/0.5ML eCW1 ([facility]) 0.5 ML dulaglutide 3 MG/ML Auto-Injector [Trulicity] T rulicity 1.5 MG/0.5ML Trulicity 1.5 MG/0.5ML 07/20/2020 12:00:00 AM EDT active Trulicity 1.5 MG/0.5ML eCW1 ([facility]) 0.5 ML dulaglutide 3 MG/ML Auto-Injector [Trulicity] T rulicity 1.5 MG/0.5ML Trulicity 1.5 MG/0.5ML 07/20/2020 12:00:00 AM EDT active Trulicity 1.5 MG/0.5ML eCW1 ([facility]) 0.5 ML dulaglutide 3 MG/ML Auto-Injector [Trulicity] T rulicity 1.5 MG/0.5ML Trulicity 1.5 MG/0.5ML 07/20/2020 12:00:00 AM EDT active Trulicity 1.5 MG/0.5ML eCW1 ([facility]) 0.5 ML dulaglutide 3 MG/ML Auto-Injector [Trulicity] T rulicity 1.5 MG/0.5ML Trulicity 1.5 MG/0.5ML 07/20/2020 12:00:00 AM EDT active Trulicity 1.5 MG/0.5ML eCW1 ([facility]) 0.5 ML dulaglutide 3 MG/ML Auto-Injector [Trulicity] T rulicity 1.5 MG/0.5ML Trulicity 1.5 MG/0.5ML 07/20/2020 12:00:00 AM EDT active Trulicity 1.5 MG/0.5ML eCW1 ([facility]) Rosuvastatin calcium 20 MG Oral Tablet [Crestor] Crestor 20 MG Crestor 20 MG 04/26/2020 12:00:00 AM EST 1.0 {tablet} active Crestor 20 MG eCW1 ([facility]) Rosuvastatin calcium 20 MG Oral Tablet [Crestor] Crestor 20 MG Crestor 20 MG 04/26/2020 12:00:00 AM EST 1.0 {tablet} active Crestor 20 MG eCW1 ([facility]) Rosuvastatin calcium 20 MG Oral Tablet [Crestor] Crestor 20 MG Crestor 20 MG 04/26/2020 12:00:00 AM EST 1.0 {tablet} active Crestor 20 MG eCW1 ([facility]) Rosuvastatin calcium 20 MG Oral Tablet [Crestor] Crestor 20 MG Crestor 20 MG 04/26/2020 12:00:00 AM EST 1.0 {tablet} active Crestor 20 MG eCW1 ([facility]) Rosuvastatin calcium 20 MG Oral Tablet [Crestor] Crestor 20 MG Crestor 20 MG 04/26/2020 12:00:00 AM EST 1.0 {tablet} active Crestor 20 MG eCW1 ([facility]) Rosuvastatin calcium 20 MG Oral Tablet [Crestor] Crestor 20 MG Crestor 20 MG 04/26/2020 12:00:00 AM EST 1.0 {tablet} active Crestor 20 MG eCW1 ([facility]) Rosuvastatin calcium 20 MG Oral Tablet [Crestor] Crestor 20 MG Crestor 20 MG 04/26/2020 12:00:00 AM EST 1.0 {tablet} active Crestor 20 MG eCW1 ([facility]) Rosuvastatin calcium 20 MG Oral Tablet [Crestor] Crestor 20 MG Crestor 20 MG 04/26/2020 12:00:00 AM EST 1.0 {tablet} active Crestor 20 MG eCW1 ([facility]) Rosuvastatin calcium 20 MG Oral Tablet [Crestor] Crestor 20 MG Crestor 20 MG 04/26/2020 12:00:00 AM EST 1.0 {tablet} active Crestor 20 MG eCW1 ([facility]) Rosuvastatin calcium 20 MG Oral Tablet [Crestor] Crestor 20 MG Crestor 20 MG 04/26/2020 12:00:00 AM EST 1.0 {tablet} active Crestor 20 MG eCW1 ([facility]) Rosuvastatin calcium 20 MG Oral Tablet [Crestor] Crestor 20 MG Crestor 20 MG 04/26/2020 12:00:00 AM EST 1.0 {tablet} active Crestor 20 MG eCW1 ([facility]) Rosuvastatin calcium 20 MG Oral Tablet [Crestor] Crestor 20 MG Crestor 20 MG 04/26/2020 12:00:00 AM EST 1.0 {tablet} active Crestor 20 MG eCW1 ([facility]) Rosuvastatin calcium 20 MG Oral Tablet [Crestor] Crestor 20 MG Crestor 20 MG 04/26/2020 12:00:00 AM EST 1.0 {tablet} active Crestor 20 MG eCW1 ([facility]) Rosuvastatin calcium 20 MG Oral Tablet [Crestor] Crestor 20 MG Crestor 20 MG 04/26/2020 12:00:00 AM EST 1.0 {tablet} active Crestor 20 MG eCW1 ([facility]) 0.5 ML dulaglutide 1.5 MG/ML Auto-Injector [Trulicity] Trulicity 0.75 MG/0.5ML Trulicity 0.75 MG/0.5ML 01/21/2020 12:00:00 AM EST active Trulicity 0.75 MG/0.5ML eCW1 ([facility]) 0.5 ML dulaglutide 1.5 MG/ML Auto-Injector [Trulicity] Trulicity 0.75 MG/0.5ML Trulicity 0.75 MG/0.5ML 01/21/2020 12:00:00 AM EST active Trulicity 0.75 MG/0.5ML eCW1 ([facility]) 0.5 ML dulaglutide 1.5 MG/ML Auto-Injector [Trulicity] Trulicity 0.75 MG/0.5ML Trulicity 0.75 MG/0.5ML 01/21/2020 12:00:00 AM EST active Trulicity 0.75 MG/0.5ML eCW1 ([facility]) sildenafil 50 MG Oral Tablet Sildenafil Citrate 50 MG Silden afil Citrate 50 MG 01/21/2020 12:00:00 AM EST 1.0 {tablet_as_needed} active Sildenafil Citrate 50 MG eCW1 ([facility]) 0.5 ML dulaglutide 1.5 MG/ML Auto-Injector [Trulicity] Trulicity 0.75 MG/0.5ML Trulicity 0.75 MG/0.5ML 01/21/2020 12:00:00 AM EST active Trulicity 0.75 MG/0.5ML eCW1 ([facility]) sildenafil 50 MG Oral Tablet Sildenafil Citrate 50 MG Silden afil Citrate 50 MG 01/21/2020 12:00:00 AM EST 1.0 {tablet_as_needed} active Sildenafil Citrate 50 MG eCW1 ([facility]) sildenafil 50 MG Oral Tablet Sildenafil Citrate 50 MG Silden afil Citrate 50 MG 01/21/2020 12:00:00 AM EST 1.0 {tablet_as_needed} active Sildenafil Citrate 50 MG eCW1 ([facility]) sildenafil 50 MG Oral Tablet Sildenafil Citrate 50 MG Silden afil Citrate 50 MG 01/21/2020 12:00:00 AM EST 1.0 {tablet_as_needed} active Sildenafil Citrate 50 MG eCW1 ([facility]) 0.5 ML dulaglutide 1.5 MG/ML Auto-Injector [Trulicity] Trulicity 0.75 MG/0.5ML Trulicity 0.75 MG/0.5ML 01/21/2020 12:00:00 AM EST active Trulicity 0.75 MG/0.5ML eCW1 ([facility]) 0.5 ML dulaglutide 1.5 MG/ML Auto-Injector [Trulicity] Trulicity 0.75 MG/0.5ML Trulicity 0.75 MG/0.5ML 01/21/2020 12:00:00 AM EST active Trulicity 0.75 MG/0.5ML eCW1 ([facility]) sildenafil 50 MG Oral Tablet Sildenafil Citrate 50 MG Silden afil Citrate 50 MG 01/21/2020 12:00:00 AM EST 1.0 {tablet_as_needed} active Sildenafil Citrate 50 MG eCW1 ([facility]) 0.5 ML dulaglutide 1.5 MG/ML Auto-Injector [Trulicity] Trulicity 0.75 MG/0.5ML Trulicity 0.75 MG/0.5ML 01/21/2020 12:00:00 AM EST active Trulicity 0.75 MG/0.5ML eCW1 ([facility]) 0.5 ML dulaglutide 1.5 MG/ML Auto-Injector [Trulicity] Trulicity 0.75 MG/0.5ML Trulicity 0.75 MG/0.5ML 01/21/2020 12:00:00 AM EST active Trulicity 0.75 MG/0.5ML eCW1 ([facility]) Insurance Providers Payer name Policy type / Coverage type Policy ID Covered green party ID Covered green party's relationship to arreola Policy Ar[place] Plan Information BS [place] [employer] Part B [id number] Self YY [id number] BS [place] [employer] Part B [id number] Self [id number] BS [place] [id number] SP [id number] [place] (pr) Medigap Part B [id number] Family Dependent [id number] [employer] (pr) Medigap Part B [id number] Family Dependent [id number] [employer] (pr) Medigap Part B [id number] Family Dependent [id number] [employer] (pr) Medigap Part B [id number] Family Dependent [id number] [employer] (pr) Commercial [id number] Family Dependent [id number] [employer] (pr) Medigap Part B [id number] Family Dependent [id number] [place] (pr) Medigap Part B [id number] .[id number] Family Dependent [id number] [place] (pr) Commercial [id number] Family Dependent [place] (pr) Medigap Part B [id number] .[id number] Family Dependent [id number] R [facility] [id number] HU2 [id number] [facility] [id number] HU2 [id number] [facility] [id number] U[facility] (pr) Commercial [id number] [id number] Family Dependent [id number] [facility] [id number] WI2 [id number] Commercial [id number] Family Dependent [id number] Umr (pr) Commercial [id number] Family Dependent [id number] Umr (pr) Commercial [id number] Family Dependent [id number] [facility] [id number] WI2 [id number] ANSI-Commercial [id number] ANSI-Commercial [id number] ANSI-Commercial [id number] ANSI-Commercial [id number] ANSI-Commercial [id number] ANSI-Commercial [id number] ANSI-Commercial [id number] ANSI-Commercial [id number]-1d79-3n72-u586z7275sp3 7mof7155-7wrk-5v23-2o04-i135a4786jd0 ANSI-Commercial o09120y1-mf48-97yv-5608-638176c180g4 l40231y5-qh67-35xg-8098-664891u262h0 ANSI-Commercial kb957153-729a-06r9-5o39-6i8nu5tziz4h yq550088-811i-83e4-5d34-4t3rd7nirx2q ANSI-Commercial 2139bjjk-at9g-7d21nf3t-0l79-74ol-26270509412y 4273jswq-gz0v-9x34le7n-4u19-08ue-54585824095u ANSI-Commercial 72945kf8-2ms4-2643-9t6n-vm5mb11s620x 82038jv0-3ki2-2165-7u8e-ge3cq14b252b ANSI-Commercial m5j45na4-397h-92l8-hm8h-f4s6nfa23sby h3u33om0-267n-54f0-ag9z-q8q1fkt69pbi ANSI-Commercial 162516q6-zz03-2l6k-8gb6-92720309b4ht 566811d0-oi79-9m6c-6xf6-86920664y9tt ANSI-Commercial 72164cx4-27k5-1z78-o35k-1uhl7yy3h8q6 66878pb0-51j0-6s49-o07g-0hqo0ui8h4i8 ANSI-Commercial 4lo989k7-16p0-75l6-74i8-6k36d81ze540 0kn957u1-54k4-98a4-21d3-9t94e83id390 ANSI-Commercial 363kqy5l-m5x7-5oxo-8qpl-a97h4004d6j2 533teq7s-a6g3-4ahv-0uvp-l96o2681u2p1 ANSI-Commercial n160y77y-59r6-9sb1-ah03-i031x1a03gs1 d272v65i-06l8-7zk0-bx61-w908l0m27yi6 ANSI-Commercial 151c58jc-59hj-4d42-y43r-71456f07n095 391t42lq-56bi-3u12-e55w-17559a64q356 [employer] [id number] WI2 [id number] [employer] [id number] WI2 [id number] [employer] PPO O [id number] P [id number] [employer] [id number] Family Dependent [id number] [facility] [id number] [facility] ([employer]) [id number] Family Dependent 910 [employer] P[employer] O [id number] O [id number] [employer] [id number] WI2 [id number] [employer] [id number] SP [id number] [facility] [id number] SP [id number] [employer] [id number] WI2 [id number] [facility] [id number] WI2 [id number] R O [id number] S [id number] [facility] [id number] WI2 [id number] ANSI-Commercial [id number] ANSI-Commercial [id number] ANSI-Commercial [id number] ANSI-Commercial [id number] ANSI-Commercial [id number] ANSI-Commercial [id number] ANSI-Commercial [id number] ANSI-Commercial [id number] ANSI-Commercial [id number] ANSI-Commercial [id number] ANSI-Commercial [id number] ANSI-Commercial [id number] ANSI-Commercial [id number] ANSI-Commercial [id number] ANSI-Commercial [id number] ANSI-Commercial [id number] [facility] [id number] [facility] [id number] ANSI-Commercial [id number] Problems, Conditions, and Diagnoses Code Display Name Description Problem Type Effective Dates Data Source(s) G56.02 [id number] Carpal tunnel syndrome of left wrist Prob james 09/12/2020 12:00:00 AM EDT eCW1 ([facility]) G47.33 [id number] LUBA (obstructive sleep apnea) Problem 07/20/2020 12:00:00 AM EDT eCW1 ([facility]) R41.3 [id number] Memory impairment Problem 06/14/2020 12:00:0 0 AM EDT eCW1 ([facility]) N52.9 [id number] Erectile dysfunction, unspecifie d erectile dysfunction type Problem 01/21/2020 12:00:00 AM EST eCW1 ([facility]) Surgeries/Procedures Procedure Description Date Indications Data Source(s) MRI SPINAL CANAL CERVICAL W/O CONTRAST MATRL 1 12:00:00 AM EST MEDENT ([facility], ) MRI SPINAL CANAL CERVICAL W/O CONTRAST MATRL 12:00:00 AM EST MEDENT ([facility], ) MRI SPINAL CANAL CERVICAL W/O CONTRAST MATRL 1 12:00:00 AM EST MEDENT ([facility], ) OFFICE OUTPATIENT VISIT 25 MINUTES 12/16/2020 12:00:00 AM EDT MEDENT ([facility], ) Needle electromyography, each extremity, with related paraspinal areas, when performed, done with nerve conduction, amplitude and latency/velocity study; complete, five or more muscles studied, innervated by three or more nerves or four or more spinal levels (list separately in addition to the code for primary procedure). 10/13/2020 12:00:00 AM EDT MEDEN T ([facility], ) Needle Electromyography Non Extremity Done With Nerve Conduc tion 10/13/2020 12:00:00 AM EDT MEDENT ([facility], ) Nerve Conduction 9-10 Studies 10/13/2020 12:00:00 AM E DT MEDENT ([facility], ) OFFICE OUTPATIENT VISIT 15 MINUTES 10/13/2020 12:00:00 AM EDT MEDENT ([facility], ) NON-INVASIVE PHYSIOLOGIC STUDY EXTREMITY 3 LEVLS 09/30 12:00:00 AM EDT MEDENT ([facility], ) NON-INVASIVE PHYSIOLOGIC STUDY EXTREMITY 3 LEVLS 09/30 12:00:00 AM EDT MEDENT ([facility], ) TSTG ANS FUNCJ CARDIOVAGAL INNERVAJ PARASYMP 12:00:00 AM EDT MEDENT ([facility], ) TESTING AUTONOMIC NERVOUS SYSTEM FUNCTION 09/30/2020 1 2:00:00 AM EDT MEDENT ([facility], ) OFFICE OUTPATIENT VISIT 25 MINUTES 09/29/2020 12:00:00 AM EDT MEDENT ([facility], ) MRI SPINAL CANAL LUMBAR W/O CONTRAST MATERIAL 08/28/19 21 12:00:00 AM EDT MEDENT ([facility], ) MRI SPINAL CANAL LUMBAR W/O CONTRAST MATERIAL 08/28/19 21 12:00:00 AM EDT MEDENT ([facility], ) MRI BRAIN BRAIN STEM W/O CONTRAST MATERIAL 08/27/2020 12:00:00 AM EDT MEDENT ([facility], ) MRI BRAIN BRAIN STEM W/O CONTRAST MATERIAL 08/27/2020 12:00:00 AM EDT MEDENT ([facility], ) MRI BRAIN BRAIN STEM W/O CONTRAST MATERIAL 08/27/2020 12:00:00 AM EDT MEDENT ([facility], ) MRI SPINAL CANAL LUMBAR W/O CONTRAST MATERIAL 08/28/19 12:00:00 AM EDT MEDENT ([facility], ) Needle electromyography, each extremity, with related paraspinal areas, when performed, done with nerve conduction, amplitude and latency/velocity study; complete, five or more muscles studied, innervated by three or more nerves or four or more spinal levels (list separately in addition to the code for primary procedure). 08/23/2020 12:00:00 AM EDT MEDEN T ([facility], ) Needle electromyography, each extremity, with related paraspinal areas, when performed, done with nerve conduction, amplitude and latency/velocity study; complete, five or more muscles studied, innervated by three or more nerves or four or more spinal levels (list separately in addition to the code for primary procedure). 08/23/2020 12:00:00 AM EDT MEDEN T ([facility], ) 14512 Nerve conduction studies 13 or more studies NEW 201208/23/2020 12:00:00 AM EDT MEDENT ([facility], ) ELECTROENCEPHALOGRAM W/REC AWAKE&ASLEEP 08/17/2020 12: 00:00 AM EDT MEDENT ([facility], ) ELECTROENCEPHALOGRAM W/REC AWAKE&ASLEEP 08/17/2020 12: 00:00 AM EDT MEDENT ([facility], ) OFFICE OUTPATIENT NEW 45 MINUTES 08/15/2020 12:00:00 A M EDT MEDENT ([facility], ) OFFICE CONSULTATION NEW/ESTAB PATIENT 60 MIN 12:00:00 AM EDT MEDENT ([facility], ) Results ID Date Data Source [id number] 11/10/2020 07:08:00 PM EDT [facility] Name Value Range Interpretation Code Description Data Hayley rce(s) Supporting Document(s) SARS coronavirus 2 RNA [Presence] in Res piratory specimen by LETA with probe detection [facility] was ordered by [facility] and re ported by [facility]. ID Date Data Source [id number] 11/10/2020 03:08:00 PM EDT [facility] Name Value Range Interpretation Code Description Data Hayley rce(s) Supporting Document(s) SARS-CoV-2 POSITIVE [facility] This lab was ordered by [facility] and reported by [facility]. ID Date Data Source [id number] 11/10/2020 03:08:00 PM EDT [facility] Name Value Range Interpretation Code Description Data Hayley rce(s) Supporting Document(s) SARS-CoV-2 (COVID-19) variant [Type] in Specimen by Sequencing AY.24 [facility] This lab was ordered by [facility] [id number] and reported by [facility]. ID Date Data Source [id number] 02/23/2020 09:53:00 PM EST [facility] Name Value Range Interpretation Code Description Data Hayley rce(s) Supporting Document(s) SARS-CoV-2 (COVID 19) [facility] This lab was ordered by [facility] a nd reported by [facility]. Procedure Social History Code Duration Value Status Description Data Source(s ) Smoking 09/12/2020 12:00:00 AM EDT Never Smoker completed Never S moker eCW1 ([facility]) Smoking 09/12/2020 12:00:00 AM EDT Never Smoker completed Never S moker eCW1 ([facility]) Smoking 09/12/2020 12:00:00 AM EDT Never Smoker completed Never S moker eCW1 ([facility]) Smoking 09/12/2020 12:00:00 AM EDT Never Smoker completed Never S moker eCW1 ([facility]) Smoking 09/12/2020 12:00:00 AM EDT Never Smoker completed Never S moker eCW1 ([facility]) Smoking 09/12/2020 12:00:00 AM EDT Never Smoker completed Never S moker eCW1 ([facility]) Smoking 09/12/2020 12:00:00 AM EDT Never Smoker completed Never S moker eCW1 ([facility]) Smoking 09/12/2020 12:00:00 AM EDT Never Smoker completed Never S moker eCW1 ([facility]) Smoking 07/20/2020 12:00:00 AM EDT Never Smoker completed Never S moker eCW1 ([facility]) Smoking 07/20/2020 12:00:00 AM EDT Never Smoker completed Never S moker eCW1 ([facility]) Smoking 07/20/2020 12:00:00 AM EDT Never Smoker completed Never S moker eCW1 ([facility]) Smoking 06/14/2020 12:00:00 AM EDT Never Smoker completed Never S moker eCW1 ([facility]) Smoking 06/14/2020 12:00:00 AM EDT Never Smoker completed Never S moker eCW1 ([facility]) Smoking 04/26/2020 12:00:00 AM EST Never Smoker completed Never S moker eCW1 ([facility]) Smoking 01/21/2020 12:00:00 AM EST Never Smoker completed Never S moker eCW1 ([facility]) Smoking 01/21/2020 12:00:00 AM EST Never Smoker completed Never S moker eCW1 ([facility]) Smoking 01/21/2020 12:00:00 AM EST Never Smoker completed Never S moker eCW1 ([facility]) Smoking 01/21/2020 12:00:00 AM EST Never Smoker completed Never S moker eCW1 ([facility]) Smoking 01/21/2020 12:00:00 AM EST Never Smoker completed Never S moker eCW1 ([facility]) Vital Signs ID Date Data Source UNK Name Value Range Interpretation Code Description Data Source(s) Systolic blood pressure 120 mm[Hg] 120 mm[Hg] M EDSCOTT ([facility], ) Diastolic blood pressure 78 mm[Hg] 78 mm[Hg] MEDENT ([facility], ) Heart rate 71 /min 71 /min [facility] ([facility], ) Oxygen saturation in Arterial blood by Pulse oximetry 98 % 98 % DEIRDRE ([facility], ) Body height 73 [in_i] 73 [in_i] DEIRDRE ([facility], ) 6'1" Body weight 251.00 [lb_av] 251.00 [lb_av] ANIL Upton ([facility]) Body mass index (BMI) [Ratio] 33.1 kg/m2 33.1 k g/m2 [facility] ([facility]) Beccaria body weight 184 [lb_av] 184 [lb_av] [facility] Body weight 113.854 kg 113.854 kg [facility] ([facility]) Body surface area Derived from formula 2.37 m2 2.37 m2 [facility] ([facility]) Body weight 257.6 [lb_av] 257.6 [lb_av] eCW1 ([facility]) Body height 71 [in_i] 71 [in_i] eCW1 ([facility]) Body mass index (BMI) [Ratio] 35.92 kg/m2 35.92 kg/m2 W1 ([facility]) Heart rate 61 /min 61 /min eCW1 ([facility]) Respiratory rate 17 /min 17 /min eCW1 ([facility]) Body temperature 98.3 [degF] 98.3 [degF] eCW1 ( [facility]) Systolic blood pressure 136 mm[Hg] 136 mm[Hg] e CW1 ([facility]) Diastolic blood pressure 80 mm[Hg] 80 mm[Hg] eCW1 ([facility]) Respiratory rate 17 /min 17 /min eCW1 ([facility]) Body temperature 97.8 [degF] 97.8 [degF] eCW1 ( [facility]) Systolic blood pressure 128 mm[Hg] 128 mm[Hg] e CW1 ([facility]) Diastolic blood pressure 80 mm[Hg] 80 mm[Hg] eCW1 ([facility]) Body weight 260 [lb_av] 260 [lb_av] eCW1 ([facility]) Body height 71 [in_i] 71 [in_i] eCW1 ([facility]) Body mass index (BMI) [Ratio] 36.26 kg/m2 36.26 kg/m2 W1 ([facility]) Heart rate 69 /min 69 /min eCW1 ([facility]) Diastolic blood pressure 77 mm[Hg] 77 mm[Hg] eCW1 ([facility]) Systolic blood pressure 124 mm[Hg] 124 mm[Hg] e CW1 ([facility]) Body weight 260 [lb_av] 260 [lb_av] eCW1 ([facility]) Body height 71 [in_i] 71 [in_i] eCW1 ([facility]) Body mass index (BMI) [Ratio] 36.26 kg/m2 36.26 kg/m2 eCW1 ([facility]) Heart rate 72 /min 72 /min eCW1 ([facility]) Respiratory rate 17 /min 17 /min eCW1 ([facility]) Body temperature 97.6 [degF] 97.6 [degF] eCW1 ( [facility]) Body weight 261 [lb_av] 261 [lb_av] eCW1 ([facility]) Body height 71 [in_i] 71 [in_i] eCW1 ([facility]) Body mass index (BMI) [Ratio] 36.40 kg/m2 36.40 kg/m2 eCW1 ([facility]) Heart rate 76 /min 76 /min eCW1 ([facility]) Respiratory rate 16 /min 16 /min eCW1 ([facility]) Body temperature 97.8 [degF] 97.8 [degF] eCW1 ( [facility]) Systolic blood pressure 138 mm[Hg] 138 mm[Hg] e CW1 ([facility]) Diastolic blood pressure 71 mm[Hg] 71 mm[Hg] eCW1 ([facility]) Body weight 263 [lb_av] 263 [lb_av] eCW1 ([facility]) Systolic blood pressure 142 mm[Hg] 142 mm[Hg] e CW1 ([facility]) Diastolic blood pressure 93 mm[Hg] 93 mm[Hg] eCW1 ([facility]) Respiratory rate 16 /min 16 /min eCW1 ([facility]) Body height 71 [in_i] 71 [in_i] eCW1 ([facility]) Body mass index (BMI) [Ratio] 36.68 kg/m2 36.68 kg/m2 eCW1 ([facility]) Heart rate 71 /min 71 /min eCW1 ([facility]) Body temperature 98.4 [degF] 98.4 [degF] eCW1 ( [facility]) Patient Treatment Plan of Care Planned Activity Planned Date Details Description Data Source (s) Elbow Brace - 09/12/2020 12:00:00 AM EDT eCW1 ([facility]) Wrist Brace - 09/12/2020 12:00:00 AM EDT eCW1 ([facility]) Elbow Brace - 09/12/2020 12:00:00 AM EDT eCW1 ([facility]) Wrist Brace - 09/12/2020 12:00:00 AM EDT eCW1 ([facility]) Elbow Brace - 09/12/2020 12:00:00 AM EDT eCW1 ([facility]) Wrist Brace - 09/12/2020 12:00:00 AM EDT eCW1 ([facility]) Elbow Brace - 09/12/2020 12:00:00 AM EDT eCW1 ([facility]) Wrist Brace - 09/12/2020 12:00:00 AM EDT eCW1 ([facility]) Elbow Brace - 09/12/2020 12:00:00 AM EDT eCW1 ([facility]) Wrist Brace - 09/12/2020 12:00:00 AM EDT eCW1 ([facility]) Elbow Brace - 09/12/2020 12:00:00 AM EDT eCW1 ([facility]) Wrist Brace - 09/12/2020 12:00:00 AM EDT eCW1 ([facility]) Wrist Brace - 09/12/2020 12:00:00 AM EDT eCW1 ([facility]) Elbow Brace - 09/12/2020 12:00:00 AM EDT eCW1 ([facility]) Wrist Brace - 09/12/2020 12:00:00 AM EDT eCW1 ([facility]) Elbow Brace - 09/12/2020 12:00:00 AM EDT eCW1 ([facility]) 0.5 ML dulaglutide 3 MG/ML Auto-Injector [Trulicity] 021 12:00:00 AM EDT eCW1 ([facility]) 0.5 ML dulaglutide 3 MG/ML Auto-Injector [Trulicity] 12:00:00 AM EDT eCW1 ([facility]) 0.5 ML dulaglutide 3 MG/ML Auto-Injector [Trulicity] 12:00:00 AM EDT eCW1 ([facility]) 0.5 ML dulaglutide 3 MG/ML Auto-Injector [Trulicity] 021 12:00:00 AM EDT eCW1 ([facility]) 0.5 ML dulaglutide 3 MG/ML Auto-Injector [Trulicity] 021 12:00:00 AM EDT eCW1 ([facility]) 0.5 ML dulaglutide 3 MG/ML Auto-Injector [Trulicity] 021 12:00:00 AM EDT eCW1 ([facility]) 0.5 ML dulaglutide 3 MG/ML Auto-Injector [Trulicity] 021 12:00:00 AM EDT eCW1 ([facility]) 0.5 ML dulaglutide 3 MG/ML Auto-Injector [Trulicity] 021 12:00:00 AM EDT eCW1 ([facility]) Rosuvastatin calcium 20 MG Oral Tablet [Crestor] 04/26/2020 12:00:0 0 AM EST eCW1 ([facility]) Rosuvastatin calcium 20 MG Oral Tablet [Crestor] 04/26/2020 12:00:0 0 AM EST eCW1 ([facility]) Rosuvastatin calcium 20 MG Oral Tablet [Crestor] 04/26/2020 12:00:0 0 AM EST eCW1 ([facility]) Rosuvastatin calcium 20 MG Oral Tablet [Crestor] 04/26/2020 12:00:0 0 AM EST eCW1 ([facility]) 0.5 ML dulaglutide 1.5 MG/ML Auto-Injector [Trulicity] 01/21/2020 12:00:00 AM EST eCW1 ([facility]) sildenafil 50 MG Oral Tablet 01/21/2020 12:00:00 AM EST eCW1 ([facility]) 0.5 ML dulaglutide 1.5 MG/ML Auto-Injector [Trulicity] 01/21/2020 12:00:00 AM EST eCW1 ([facility]) sildenafil 50 MG Oral Tablet 01/21/2020 12:00:00 AM EST eCW1 ([facility]) sildenafil 50 MG Oral Tablet 01/21/2020 12:00:00 AM EST eCW1 ([facility]) 0.5 ML dulaglutide 1.5 MG/ML Auto-Injector [Trulicity] 01/21/2020 12:00:00 AM EST eCW1 ([facility]) 0.5 ML dulaglutide 1.5 MG/ML Auto-Injector [Trulicity] 01/21/2020 12:00:00 AM EST eCW1 ([facility]) sildenafil 50 MG Oral Tablet 01/21/2020 12:00:00 AM EST eCW1 ([facility]) 0.5 ML dulaglutide 1.5 MG/ML Auto-Injector [Trulicity] 01/21/2020 12:00:00 AM EST eCW1 ([facility]) sildenafil 50 MG Oral Tablet 01/21/2020 12:00:00 AM EST eCW1 ([facility])
[2021-01-09 08:15] LABS: BASO % 0.5 % (0.0-1.0); EOS % 0.4 % (0.0-3.0); HEMATOCRIT 41.4 % (42.0-52.0); HEMOGLOBIN 13.9 g/dl (13.5-17.5); LYMPH % 11.7 % (24.0-44.0); MEAN CORPUSCULAR HEMOGLOBIN 30.8 pg (27.0-33.0); MEAN CORPUSCULAR HGB CONC 33.6 g/dl (32.0-36.5); MEAN CORPUSCULAR VOLUME 91.6 fl (80.0-96.0); MONO # 0.6 10^3/uL (0.0-0.8); MONO % 6.9 % (2.0-8.0); NEUTROPHILS # 6.6 10^3/uL (1.5-8.5); NEUTROPHILS % 79.8 % (36.0-66.0); PLATELET COUNT, AUTOMATED 164 10^3/uL (150-450); RED BLOOD COUNT 4.52 10^6/uL (4.30-6.10); WHITE BLOOD COUNT 8.2 10^3/uL (4.0-10.0)
--- NOTE | 2021-01-09 08:41 | REPVR ---
PROCEDURE INFORMATION: Exam: CT Abdomen And Pelvis Without Contrast Exam date and time: 01/09/2021 7:33 AM Age: 60 years old Clinical indication: Abdominal pain; Additional info: Left flank pain; HX of stones TECHNIQUE: Imaging protocol: Computed tomography of the abdomen and pelvis without contrast. Radiation optimization: All CT scans at this facility use at least one of these dose optimization techniques: automated exposure control; mA and/or kV adjustment per patient size (includes targeted exams where dose is matched to clinical indication); or iterative reconstruction. COMPARISON: CT ABD PELVIS W/O CONTRAST 04/11/2019 6:16 PM FINDINGS: Lungs: Small areas of dependent interstitial edema and subsegmental atelectases are seen in both posterior lung bases. Heart: Moderate coronary artery calcification is present. Liver: No mass. The right lobe of the liver is elongated and likely represents a normal variant Jayshree's lobe. Gallbladder and bile ducts: Prior cholecystectomy. The biliary ducts appear normal. Pancreas: Normal. No dilatation of the main pancreatic duct. Spleen: Mild splenomegaly is present, measuring 16 cm in AP diameter on image 47 of series 201. No intrasplenic masses identified, however. Adrenal glands: Normal. No mass. Kidneys and ureters: Bilateral small nonobstructing calculi are present in the kidneys. No hydronephrosis. Both ureters and the urinary bladder appear normal. Stomach and bowel: Unremarkable. No obstruction. No mucosal thickening. Appendix: No evidence of appendicitis. The appendix is however partially moderately enlarged measuring up to 9.6 mm in diameter in the right lower quadrant posterior to the cecum on images 105 through 113 of series 201. No periappendiceal inflammatory change or fluid. The likely diagnosis is a normal variant large appendix. Intraperitoneal space: Unremarkable. No free air. No significant fluid collection. Vasculature: Unremarkable. No abdominal aortic aneurysm. The superior mesenteric artery is patent. Lymph nodes: Unremarkable. No enlarged lymph nodes. Urinary bladder: Normal. Reproductive: Unremarkable as visualized. Bones/joints: Chronic degenerative discovertebral disease is present in the lumbar spine at L2 through S1 with diminished disc height, vacuum disc phenomenon and vertebral body endplate osteophytosis at those levels. Soft tissues: Small bilateral inguinal hernias are present, containing fat only. IMPRESSION: 1. Mild splenomegaly is present, measuring 16 cm in AP diameter on image 47 of series 201. No intrasplenic masses identified, however. 2. Small areas of dependent interstitial edema and subsegmental atelectases are seen in both posterior lung bases. 3. Moderate coronary artery calcification is present. 4. No mass. The right lobe of the liver is elongated and likely represents a normal variant Jayshree's lobe. 5. Prior cholecystectomy. The biliary ducts appear normal. 6. Bilateral small nonobstructing calculi are present in the kidneys. No hydronephrosis. Both ureters and the urinary bladder appear normal. 7. No evidence of appendicitis. The appendix is however partially moderately enlarged measuring up to 9.6 mm in diameter in the right lower quadrant posterior to the cecum on images 105 through 113 of series 201. No periappendiceal inflammatory change or fluid. The likely diagnosis is a normal variant large appendix. 8. Chronic degenerative discovertebral disease is present in the lumbar spine at L2 through S1 with diminished disc height, vacuum disc phenomenon and vertebral body endplate osteophytosis at those levels. 9. Small bilateral inguinal hernias are present, containing fat only. Electronically signed by: Damien Farah On 01/09/2021 08:40:50 AM
[2021-01-09 09:27] LABS: BILIRUBIN,DIRECT 0.1 MG/DL (0.0-0.2); BILIRUBIN,TOTAL 0.6 MG/DL (0.2-1.0); CALCIUM LEVEL 9.3 MG/DL (8.5-10.1); CREATININE FOR GFR 1.49 MG/DL (0.70-1.30); GLOMERULAR FILTRATION RATE 51.4 (>56); POTASSIUM SERUM 4.5 MEQ/L (3.5-5.1); TOTAL PROTEIN 7.5 GM/DL (6.4-8.2)
[2021-01-09] MEDS ORDERED: HYDR-3713 PO (09:54)
[2021-01-09 10:08] VITALS: BP 114/70
--- NOTE | 2021-01-10 06:30 | ED PDOC ---
Post-Departure Follow-Up dr dean faxed formal report of CT abdp for fu Panchito Marin MD Jan 10, 2021 06:30
== END 2021-01-09 10:55 | disposition home or self-care (01) ==
LOC: M ED 01:01
DX: R16.1 Splenomegaly, not elsewhere classified (principal); E11.9 Type 2 diabetes mellitus without complications; Z87.442 Personal history of urinary calculi; Z88.8 Allergy status to other drugs, medicaments and biological substances; Z79.899 Other long term (current) drug therapy; Z79.82 Long term (current) use of aspirin; Z79.84 Long term (current) use of oral hypoglycemic drugs
CPT/HCPCS: 74176; 80048; 80076; 81001; 83690; 85025; 96361; 96374; 96375; 99284; J1885; J2405

== ENCOUNTER → 2021-02-09 | Outpatient (CLI) | payer OTHER ==
[~2021-02-09] MED LIST changes: +CRES20TA2 PO; +FLUO5OI TOP; +GABA-1171 PO; +HYDR-3713 PO; -LISI-898 PO; +LISI5TAB11 PO
== END ==
LOC: M RAD 08:16
PROVIDERS: ATTEND Family Medicine
DX: N20.0 Calculus of kidney (principal); R16.1 Splenomegaly, not elsewhere classified; Z86.16 Personal history of COVID-19

== ENCOUNTER → 2021-05-08 | Outpatient (CLI) | payer OTHER ==
[2021-05-08 10:30] LABS: BASO % 0.6 % (0.0-1.0); EOS # 0.2 10^3/uL (0.0-0.5); EOS % 2.2 % (0.0-3.0); HEMOGLOBIN 14.2 g/dl (13.5-17.5); LYMPH % 14.3 % (24.0-44.0); MEAN CORPUSCULAR HEMOGLOBIN 30.5 pg (27.0-33.0); MEAN CORPUSCULAR HGB CONC 33.8 g/dl (32.0-36.5); MEAN CORPUSCULAR VOLUME 90.3 fl (80.0-96.0); MONO # 0.7 10^3/uL (0.0-0.8); MONO % 9.8 % (2.0-8.0); NEUTROPHILS # 5.2 10^3/uL (1.5-8.5); NEUTROPHILS % 72.3 % (36.0-66.0); PLATELET COUNT, AUTOMATED 170 10^3/uL (150-450); RED BLOOD COUNT 4.65 10^6/uL (4.30-6.10); WHITE BLOOD COUNT 7.2 10^3/uL (4.0-10.0)
[2021-05-08 12:18] LABS: HEMOGLOBIN A1c 9.5 %
[2021-05-08 12:40] LABS: MALB URINE SIEMENS 35.7 MG/L; MAU/CREAT RATIO 19.2 MCG/MG (0.0-30.0)
[2021-05-08 13:02] LABS: BLOOD UREA NITROGEN 14 MG/DL (7-18); CALCIUM LEVEL 8.9 MG/DL (8.8-10.2); CARBON DIOXIDE LEVEL 31 MEQ/L (21-32); CHLORIDE LEVEL 105 MEQ/L (98-107); CHOLESTEROL LEVEL 150 MG/DL (<200); CHOLESTEROL RISK RATIO 3.658 (<5); CREATININE FOR GFR 1.23 MG/DL (0.70-1.30); GLOMERULAR FILTRATION RATE > 60.0 (>49); GLUCOSE, FASTING 228 MG/DL (70-100); HDL CHOLESTEROL 41 MG/DL (>40); LDL CHOLESTEROL 59 MG/DL (<100); NON-HDL-C 109 MG/DL; SODIUM LEVEL 141 MEQ/L (136-145); TRIGLYCERIDES LEVEL 250 MG/DL (<150)
== END ==
LOC: M WUC 08:26
PROVIDERS: ATTEND Family Medicine
DX: E11.9 Type 2 diabetes mellitus without complications (principal); E78.2 Mixed hyperlipidemia

== ENCOUNTER → 2021-05-24 | Outpatient (CLI) | payer OTHER ==
[2021-05-24 15:01] LABS: APPEARANCE, URINE CLEAR (CLEAR); BACTERIA, URINE AUTO NEGATIVE (NEGATIVE); BILIRUBIN, URINE AUTO NEGATIVE (NEGATIVE); BLOOD, URINE BLOOD NEGATIVE (NEGATIVE); COLOR, URINE YELLOW (YELLOW); GLUCOSE, URINE (UA) AUTO 2+ mg/dL (NEGATIVE); KETONE, URINE AUTO NEGATIVE (NEGATIVE); LEUKOCYTE ESTERASE, URINE AUTO 1+ (NEGATIVE); MUCUS, URINE SMALL (NEGATIVE); NITRITE, URINE AUTO NEGATIVE (NEGATIVE); PROTEIN, URINE AUTO NEGATIVE (NEGATIVE); RBC, URINE AUTO 0 /HPF (0-3); SPECIFIC GRAVITY URINE AUTO 1.016 (1.002-1.035); SQUAMOUS EPITHELIAL CELL UR AU 0 /HPF (0-6); UROBILINOGEN, URINE AUTO 0.2 mg/dL (0.0-2.0); WBC, URINE AUTO 1 /HPF (0-3)
== END ==
LOC: M RAD 13:29
PROVIDERS: ATTEND Family Medicine
DX: R39.15 Urgency of urination (principal)

== ENCOUNTER 2021-06-08 07:58 | Day surgery (SDC) | payer OTHER ==
[~2021-06-08] VITALS: Ht 185.4 cm; Wt 111.8 kg
[~2021-06-08 07:58] MED LIST changes: +APPLTAB3 PO; +B6/F1CAP PO; +CENTCHW3 PO; +DULA3PEN; +LIDOCAINE 2% 100MG/5ML SDV (FOR ANES.) As Ordered ONE; +NS 1,000 ML IV ONE; +SILD50TA2; +TAMS1CAP17; +propofoL 200 MG/20 ML VIAL As Ordered ONE
[2021-06-08] MEDS ORDERED: propofoL 200 MG/20 ML VIAL As Ordered ONE (10:03)
[2021-06-08 10:52] VITALS: BP 129/82
== END 2021-06-08 10:53 | disposition home or self-care (01) ==
LOC: M OPP 07:58
PROVIDERS: ATTEND Internal Medicine Gastroenterology
DX: Z12.11 Encounter for screening for malignant neoplasm of colon (principal); Z86.010 Personal history of colon polyps; K63.5 Polyp of colon; K57.30 Diverticulosis of large intestine without perforation or abscess without bleeding; K64.8 Other hemorrhoids; E11.9 Type 2 diabetes mellitus without complications; G47.33 Obstructive sleep apnea (adult) (pediatric); E78.5 Hyperlipidemia, unspecified; Z79.1 Long term (current) use of non-steroidal anti-inflammatories (NSAID); Z79.82 Long term (current) use of aspirin; Z79.84 Long term (current) use of oral hypoglycemic drugs; Z79.891 Long term (current) use of opiate analgesic; Z79.899 Other long term (current) drug therapy; Z87.442 Personal history of urinary calculi

== ENCOUNTER → 2021-10-18 | Outpatient (REF) | payer OTHER ==
[~2021-10-18] MED LIST changes: +FLUO-215 TOP; -FLUO5OI TOP; -LIDOCAINE 2% 100MG/5ML SDV (FOR ANES.) As Ordered ONE; -NS 1,000 ML IV ONE; -propofoL 200 MG/20 ML VIAL As Ordered ONE
[2021-10-18 10:50] LABS: BLOOD UREA NITROGEN 21 MG/DL (7-18); CREATININE FOR GFR 1.26 MG/DL (0.70-1.30); GLOMERULAR FILTRATION RATE > 60.0 (>49)
== END ==
LOC: M LABWUC 09:32
PROVIDERS: ATTEND Physician Assistant Medical
DX: H90.3 Sensorineural hearing loss, bilateral (principal)

== ENCOUNTER → 2022-03-20 | Outpatient (CLI) | payer OTHER ==
[2022-03-20 10:19] LABS: HEMOGLOBIN A1c 9.2 % (4.0-6.0)
[2022-03-20 10:33] LABS: CREATININE, URINE 172.2 MG/DL; MAU/CREAT RATIO 9.2 MCG/MG (0.0-30.0)
[2022-03-20 10:35] LABS: BLOOD UREA NITROGEN 17 MG/DL (9-23); CALCIUM LEVEL 8.8 MG/DL (8.3-10.6); CARBON DIOXIDE LEVEL 30 MMOL/L (20-31); CHLORIDE LEVEL 102 MMOL/L (98-107); CHOLESTEROL LEVEL 136 MG/DL (<200); CHOLESTEROL RISK RATIO 3.73 (<5); CREATININE FOR GFR 1.13 MG/DL (0.70-1.30); GLOMERULAR FILTRATION RATE > 60.0 (>49); GLUCOSE, FASTING 223 MG/DL (74-106); HDL CHOLESTEROL 36.4 MG/DL (>40); LDL CHOLESTEROL 31.4 MG/DL (<100); NON-HDL-C 100 MG/DL; POTASSIUM SERUM 4.5 MMOL/L (3.5-5.1); SODIUM LEVEL 139 MMOL/L (136-145); TRIGLYCERIDES LEVEL 341 MG/DL (<150)
== END ==
LOC: M WUC 08:05
PROVIDERS: ATTEND Family Medicine
DX: E11.9 Type 2 diabetes mellitus without complications (principal); E78.2 Mixed hyperlipidemia

== ENCOUNTER → 2022-09-10 | Outpatient (REF) | payer OTHER ==
[~2022-09-10] MED LIST changes: +AUGM0.05 TOP; -FLUO-215 TOP; +FLUO5OI TOP; +PRED20TA PO; +VITA1CHW3 PO; +VITA400C83 PO
== END ==
LOC: M SFHCDERM 09:51
PROVIDERS: ATTEND Dermatology
DX: Z53.9 Procedure and treatment not carried out, unspecified reason (principal)

== ENCOUNTER → 2022-12-11 | Outpatient (CLI) | payer OTHER ==
[~2022-12-11] MED LIST changes: +DICL100G10 TOP; -DICL1GEL3 TOP
[2022-12-11 10:51] LABS: HEMOGLOBIN A1c 8.1 % (4.0-6.0)
[2022-12-11 10:54] LABS: BLOOD UREA NITROGEN 20 MG/DL (9-23); CALCIUM LEVEL 9.4 MG/DL (8.3-10.6); CARBON DIOXIDE LEVEL 28 MMOL/L (20-31); CHLORIDE LEVEL 104 MMOL/L (98-107); CREATININE FOR GFR 1.18 MG/DL (0.70-1.30); GLOMERULAR FILTRATION RATE > 60.0 (>49); GLUCOSE, FASTING 226 MG/DL (74-106); POTASSIUM SERUM 4.9 MMOL/L (3.5-5.1); SODIUM LEVEL 141 MMOL/L (136-145)
== END ==
LOC: M WUC 08:05
PROVIDERS: ATTEND Family Medicine
DX: E11.9 Type 2 diabetes mellitus without complications (principal)

== ENCOUNTER 2023-01-24 15:38 | Emergency (ER) | payer OTHER ==
[~2023-01-24] VITALS: Ht 182.9 cm; Wt 113.6 kg
[2023-01-24] MEDS ORDERED: CYCL5TAB (16:51)
[2023-01-24] MEDS ORDERED: LIDOCAINE 5% (LIDODERM) PATCH TD ONE (17:55)
[2023-01-24] MEDS ORDERED: PRED20TA PO (17:56)
[2023-01-24] MEDS ORDERED: METH-1164 PO (17:56)
[2023-01-24 18:32] VITALS: BP 121/80; TEMP 98.5; O2SAT 96
== END 2023-01-24 18:34 | disposition home or self-care (01) ==
LOC: M ED 15:38
DX: M71.311 Other bursal cyst, right shoulder (principal); M67.813 Other specified disorders of tendon, right shoulder; E11.9 Type 2 diabetes mellitus without complications; I10 Essential (primary) hypertension; Z79.899 Other long term (current) drug therapy; Z79.82 Long term (current) use of aspirin; Z79.84 Long term (current) use of oral hypoglycemic drugs; Z88.8 Allergy status to other drugs, medicaments and biological substances

== ENCOUNTER → 2023-04-26 | Outpatient (REF) | payer OTHER ==
[~2023-04-26] MED LIST changes: -ASPI-161 PO; +ASPI-615 PO; +CYCL5TAB; +METH-1164 PO
[2023-04-26 18:04] LABS: ALKALINE PHOSPHATASE 96 U/L (46-116); ALT/SGPT 51 U/L (7.0-40); AST/SGOT 28 U/L (<34); BILIRUBIN,TOTAL 0.6 MG/DL (0.3-1.2); BLOOD UREA NITROGEN 18 MG/DL (9-23); CALCIUM LEVEL 8.8 MG/DL (8.3-10.6); CARBON DIOXIDE LEVEL 28 MMOL/L (20-31); CHLORIDE LEVEL 103 MMOL/L (98-107); CHOLESTEROL LEVEL 129 MG/DL (<200); CHOLESTEROL RISK RATIO 3.89 (<5); CREATININE FOR GFR 1.07 MG/DL (0.70-1.30); GLOMERULAR FILTRATION RATE > 60.0 (>49); GLUCOSE, FASTING 185 MG/DL (74-106); HDL CHOLESTEROL 33.1 MG/DL (>40); LDL CHOLESTEROL 19.7 MG/DL (<100); NON-HDL-C 95.9 MG/DL; POTASSIUM SERUM 4.3 MMOL/L (3.5-5.1); SODIUM LEVEL 138 MMOL/L (136-145); TOTAL PROTEIN 6.6 G/DL (5.7-8.2); TRIGLYCERIDES LEVEL 381 MG/DL (<150)
[2023-04-26 18:05] LABS: HEMOGLOBIN A1c 9.9 % (4.0-6.0); MAU/CREAT RATIO 22.4 MCG/MG (0.0-30.0)
== END ==
LOC: M LABWUC 16:27
PROVIDERS: ATTEND Family Medicine
DX: E11.9 Type 2 diabetes mellitus without complications (principal); E78.2 Mixed hyperlipidemia

== ENCOUNTER → 2023-06-03 | Outpatient (REF) | payer OTHER | LOC: M LABWUC 16:48 | PROVIDERS: ATTEND Family Medicine | DX: N40.1 Benign prostatic hyperplasia with lower urinary tract symptoms (principal) | CPT/HCPCS: 36415; G0103 ==

== ENCOUNTER → 2023-06-20 | Outpatient (CLI) | payer OTHER | LOC: M RAD 06:52 | PROVIDERS: ATTEND Physician Assistant | DX: M62.838 Other muscle spasm (principal); M25.552 Pain in left hip ==

== ENCOUNTER → 2023-10-04 | Outpatient (REF) | payer OTHER ==
[~2023-10-04] MED LIST changes: +ONDA-282 PO; -ONDA4TAB6 PO
[2023-10-04 11:26] LABS: ALBUMIN 4.1 G/DL (3.2-5.2); ALKALINE PHOSPHATASE 81 U/L (46-116); ALT/SGPT 29 U/L (7.0-40); AST/SGOT 21 U/L (<34); BILIRUBIN,TOTAL 0.7 MG/DL (0.3-1.2); BLOOD UREA NITROGEN 29 MG/DL (9-23); CALCIUM LEVEL 9.6 MG/DL (8.3-10.6); CARBON DIOXIDE LEVEL 24 MMOL/L (20-31); CHLORIDE LEVEL 106 MMOL/L (98-107); CREATININE FOR GFR 1.19 MG/DL (0.70-1.30); GLOMERULAR FILTRATION RATE > 60.0 (>49); GLUCOSE, FASTING 181 MG/DL (74-106); POTASSIUM SERUM 4.6 MMOL/L (3.5-5.1); SODIUM LEVEL 137 MMOL/L (136-145); TOTAL PROTEIN 6.9 G/DL (5.7-8.2)
[2023-10-04 11:51] LABS: HEMOGLOBIN A1c 7.8 % (4.0-6.0)
== END ==
LOC: M SFHCLERA 07:36
PROVIDERS: ATTEND Family Medicine
DX: E11.9 Type 2 diabetes mellitus without complications (principal)

== ENCOUNTER 2023-12-12 08:40 | Emergency (ER) | payer OTHER ==
[~2023-12-12] VITALS: Ht 185.4 cm; Wt 109.1 kg
[~2023-12-12 08:40] MED LIST changes: +E-401CAP2 PO; -VITA400C83 PO
[2023-12-12 11:12] VITALS: BP 114/68; TEMP 97.7; O2SAT 97
[2023-12-12] MEDS ORDERED: AMOX875T2 PO (11:29)
[2023-12-12] MEDS ORDERED: CIPR7.5D2 AD (11:29)
== END 2023-12-12 11:55 | disposition home or self-care (01) ==
LOC: M ED 08:40
DX: H60.91 Unspecified otitis externa, right ear (principal); Z88.8 Allergy status to other drugs, medicaments and biological substances; Z79.1 Long term (current) use of non-steroidal anti-inflammatories (NSAID); Z79.2 Long term (current) use of antibiotics; Z79.84 Long term (current) use of oral hypoglycemic drugs; Z79.899 Other long term (current) drug therapy; Z79.810 Long term (current) use of selective estrogen receptor modulators (SERMs)

== ENCOUNTER → 2024-05-01 | Outpatient (CLI) | payer OTHER ==
[~2024-05-01] MED LIST changes: +AMOX875T2 PO; -AUGM0.05 TOP; +AUGM0.0511 TOP; +CIPR7.5D2 AD; -CYCL5TAB; +CYCL5TAB4
[2024-05-01 15:56] LABS: HEMOGLOBIN A1c 9.3 % (4.0-6.0)
[2024-05-01 16:00] LABS: CALCIUM LEVEL 9.2 MG/DL (8.3-10.6); CREATININE FOR GFR 1.35 MG/DL (0.70-1.30); GLOMERULAR FILTRATION RATE 56.8 (>49); POTASSIUM SERUM 5.1 MMOL/L (3.5-5.1)
== END ==
LOC: M WUC 09:09
PROVIDERS: ATTEND Family Medicine
DX: E11.9 Type 2 diabetes mellitus without complications (principal)

== ENCOUNTER → 2024-06-26 | Outpatient (CLI) | payer OTHER ==
[~2024-06-26] MED LIST changes: -FLOM0.4C39 PO; +TAMS-18 PO
== END ==
LOC: M PLARAD 10:25
PROVIDERS: ATTEND Physician Assistant
DX: Z04.2 Encounter for examination and observation following work accident (principal); M54.12 Radiculopathy, cervical region

== ENCOUNTER 2024-07-04 11:40 | Emergency (ER) | payer OTHER ==
[~2024-07-04] VITALS: Ht 182.9 cm; Wt 104.8 kg
[2024-07-04 12:25] LABS: BASO % 0.2 % (0.0-1.0); EOS # 0.2 10^3/uL (0.0-0.5); EOS % 4.4 % (0.0-3.0); HEMOGLOBIN 14.9 g/dl (13.5-17.5); LYMPH # 0.7 10^3/uL (1.5-5.0); MEAN CORPUSCULAR HEMOGLOBIN 30.2 pg (27.0-33.0); MEAN CORPUSCULAR HGB CONC 33.9 g/dl (32.0-36.5); MEAN CORPUSCULAR VOLUME 89.1 fl (80.0-96.0); MONO # 0.8 10^3/uL (0.0-0.8); MONO % 13.9 % (2.0-8.0); NEUTROPHILS # 3.7 10^3/uL (1.5-8.5); NEUTROPHILS % 69.1 % (36.0-66.0); PLATELET COUNT, AUTOMATED 145 10^3/uL (150-450); RED BLOOD COUNT 4.94 10^6/uL (4.30-6.10); WHITE BLOOD COUNT 5.4 10^3/uL (4.0-10.0)
[2024-07-04 12:53] LABS: ALBUMIN 3.9 G/DL (3.2-5.2); BILIRUBIN,DIRECT 0.2 MG/DL (<0.4); BILIRUBIN,TOTAL 0.8 MG/DL (0.3-1.2); TOTAL PROTEIN 6.9 G/DL (5.7-8.2)
[2024-07-04] MEDS: ONDANSETRON 4MG 2ML VIAL IV ONE (13:07)
[2024-07-04] MEDS: KETOROLAC 30 MG/ML 1ML VIAL IV ONE (13:08)
[2024-07-04] MEDS: NS (Normal Saline) 0.9% 1,000 ML IV ONE (13:08)
[2024-07-04] MEDS ORDERED: ISOVUE-370 76% 100ML VIAL As Ordered ONE (13:09)
[2024-07-04 13:12] VITALS: TEMP 97.9
[2024-07-04] MEDS: MORPHINE 2 MG/ML 1ML VIAL IV ONE (16:41)
[2024-07-04] MEDS: METOCLOPRAMIDE INJ 10MG/2ML VIAL IV ONE (16:41)
[2024-07-04] MEDS ORDERED: PANT40TA29 PO (17:37)
[2024-07-04] MEDS ORDERED: ONDA-282 PO (17:37)
[2024-07-04] MEDS ORDERED: SUCR1SS PO (17:37)
[2024-07-04 17:44] VITALS: BP 114/67; O2SAT 96
== END 2024-07-04 17:45 | disposition home or self-care (01) ==
LOC: M ED 11:40
DX: A08.32 Astrovirus enteritis (principal); E11.9 Type 2 diabetes mellitus without complications; I10 Essential (primary) hypertension; E78.5 Hyperlipidemia, unspecified; Z88.1 Allergy status to other antibiotic agents; Z79.1 Long term (current) use of non-steroidal anti-inflammatories (NSAID); Z79.2 Long term (current) use of antibiotics; Z79.4 Long term (current) use of insulin; Z79.52 Long term (current) use of systemic steroids; Z79.84 Long term (current) use of oral hypoglycemic drugs; Z79.899 Other long term (current) drug therapy
CPT/HCPCS: 74177; 80047; 80076; 83690; 85025; 87507; 96374; 96375; 99284; J1885; J2405; J2765; Q9967

== ENCOUNTER → 2025-01-07 | Outpatient (REF) | payer OTHER ==
[~2025-01-07] MED LIST changes: +PANT40TA29 PO; +SUCR1SS PO
== END ==
LOC: M SFHCLERA 07:36
PROVIDERS: ATTEND Family Medicine
DX: Z53.9 Procedure and treatment not carried out, unspecified reason (principal)

== ENCOUNTER → 2025-01-08 | Outpatient (CLI) | payer OTHER ==
[2025-01-08 15:49] LABS: ALT/SGPT 33.0 U/L (7.0-40); AST/SGOT 24.0 U/L (<34); CALCIUM LEVEL 9.6 MG/DL (8.3-10.6); CARBON DIOXIDE LEVEL 29.0 MMOL/L (20-31); CHLORIDE LEVEL 101.0 MMOL/L (98-107); CREATININE FOR GFR 1.2 MG/DL (0.70-1.30); GLOMERULAR FILTRATION RATE 68.0 (>49); POTASSIUM SERUM 4.4 MMOL/L (3.5-5.1); SODIUM LEVEL 140.0 MMOL/L (136-145)
[2025-01-08 16:07] LABS: ESTIMATED AVERAGE GLUCOSE 237.0 MG/DL (60-110)
== END ==
LOC: M WUC 08:03
PROVIDERS: ATTEND Family Medicine
DX: E11.9 Type 2 diabetes mellitus without complications (principal)